=== PATIENT | male | born 1935 | race Caucasian/White ===

== ENCOUNTER → 2016-09-09 | Outpatient (CLI) | payer MEDICARE, OTHER ==
[~2016-09-09] MED LIST: ASP325T PO; ATOR40TA PO; CALC-787 PO; GLIP5TAB13 PO; GLYB5TAB6 PO; HCT25T PO; HYDR-3002 PO; LISI40TA PO; METO100T2 PO; MTF500T PO; MULT-963 PO; POTA10CA43 PO; POTA10TA36 PO; SIMV80TA3 PO
--- OUTSIDE RECORDS SUMMARY | 2016-09-09 11:00 | XMS REPORT | Continuity of Care Document ---
Author Author [facility] Organization [facility] Address Unknown Phone Unavailable Care Team Providers Care Farm Mechanic Name Role Phone GERI PAZ MD PCP Insurance Providers Payer Name Policy Number Subscriber Name Relationship [employer] [id number] Geri Van 18 Self / Same As Patient Enter Insurance Name [id number] Geri Van 18 Self / Same As Patient Advance Directives Directive Response Recorded Date/Time Advance Directives No 03/05/16 11:03am Organ Donor No 03/05/16 11:03am Problems Active Problems Medical Problem Onset Date Status Heat stress syndrome Unknown Acute Medications Current Home Medications Medication Dose Units Route Directions Days/Qty Instructions Start Date Aspirin 325 Mg 325 Mg Oral Daily 09/16/12 Metformin Hcl (Glucophage) 500 Mg 500 Mg Oral Twice A Day With Meals 09/16/12 Hydrochlorothiazide 25 Mg 25 Mg Oral Daily 09/16/12 Metoprolol Tartrate (Lopressor) 100 Mg 50 Mg Oral Daily 09/16/12 Glipizide (Glucotrol) 5 Mg 2.5 Mg Oral Twice A Day 09/16/12 Multivitamin 1 Each 1 Tab Oral Daily 09/16/12 Calcium Citrate/Vitamin D3 1 Each 1 Tab Oral Daily 09/16/12 Hydralazine Hcl 10 Mg 10 Mg Oral Twice A Day 09/16/12 Atorvastatin Calcium 40 Mg 40 Mg Oral Bedtime 09/16/12 Lisinopril 40 Mg 40 Mg Oral Daily 09/16/12 Potassium Chloride 10 Meq 10 Meq Oral Daily 09/17/12 Past Home Medications Medication Directions Ordered Status Glyburide (Micronase) 5 Mg Tablet, 1 Each Oral Twice Daily Before Meals 09/16 Discontinued Potassium Chloride 10 Meq Tab.prt.sr, 20 Meq Oral Daily With Meal 09/16/12 Discontinued Hydralazine Hcl 10 Mg Tablet, 1 Each Oral Twice A Day 09/16/12 Discontinued Lisinopril 40 Mg Tablet, 40 Mg Oral Daily 09/16/12 Discontinued Simvastatin 80 Mg Tablet, 40 Mg Oral Daily 09/16/12 Discontinued Social History Social History Problem Response Recorded Date/Time Alcohol Use Denies Use 03/05/2016 11:03am Recreational Drug Use No 03/05/2016 11:03am Recent Foreign Travel No 09/16/2012 5:15pm Recent Infectious Disease Exposure No 09/16/2012 5:15pm Hospitalization with Isolation Denies 09/17/2012 2:12pm Sexually Transmitted Disease No 03/05/2016 11:03am HIV/AIDS No 03/05/2016 11:03am Recent Hopitalizations No 03/05/2016 11:03am Sexually Transmitted Disease No 03/05/2016 11:03am Hospitalization with Isolation Denies 09/17/2012 2:12pm Hospital Discharge Instructions No hospital discharge instructions. Plan of Care Prescriptions See Medication Section Functional Status No functional status results. Allergies, Adverse Reactions, Alerts No known allergies. Immunizations No immunization records. Vital Signs No known vital signs results. Results No known relevant diagnostic tests, laboratory data and/or discharge summary. Procedures No known history of procedures. Encounters Encounter Location Arrival/Admit Date Discharge/Depart Date Attending Provider Discharged Recurring [facility] 06/04/16 9:24am 10:22am GERI PAZ MD Discharged Recurring [facility] 05/15/16 1:47pm 5:00pm GERI PAZ MD
== END ==
LOC: CARD 10:55
PROVIDERS: ATTEND Internal Medicine
DX: R00.2 Palpitations (principal)
CPT/HCPCS: 93225; 93226

== ENCOUNTER 2018-05-16 13:27 | Emergency (ER) | payer MEDICARE, OTHER ==
[~2018-05-16] VITALS: Ht 165.1 cm; Wt 56.7 kg
--- OUTSIDE RECORDS SUMMARY | 2018-05-16 13:32 | XMS REPORT | Continuity of Care Document ---
Author Author [facility] Organization [facility] Address Unknown Phone Unavailable Allergies Active Description Code Type Severity Reaction Onset Reported/Identified Relationship to Patient Clinical Status Yes No Known Drug Allergies [id number] Drug Allergy Unknown N/A 09/16/2012 Medications There is no data. Problems Date Dx Coded Attending Type Code Diagnosis Diagnosed By 09/17/2012 Ot 250.00 DIAB RENATE WO COMPL, TYPE II OR UNSPEC TY 09/17/2012 Ot 272.4 HYPERLIPIDEMIA NEC/NOS 09/17/2012 Ot 401.9 HYPERTENSION NOS 09/17/2012 Ot 414.01 CORONARY ATHEROSCLEROSIS OF [place] CORON 09/17/2012 Ot 786.50 CHEST PAIN NOS 09/17/2012 Ot V58.67 LONG-TERM ( CURRENT) USE OF INSULIN 09/17/2012 Ot V58.69 OTH MED,LT, CURRENT USE 07/18/2014 Ot 284.1 07/18/2014 Ot 786.2 07/18/2014 GERI PAZ MD Ot 285.9 08/15/2014 KIARA JOHNSON [employer]GE[employer] Ot 784.0 03/05/2016 ROBERTA GREEN MD Ot T67.5XXA HEAT EXHAUSTION, UNSPECIFIED, INITIAL EN 03/06/2016 Ot 284.1 PANCYTOPENIA 03/06/2016 Ot 786.2 COUGH 03/06/2016 GERI PAZ MD Ot 285.9 ANEMIA NOS 03/06/2016 IKARA JOHNSON [employer]GE[employer] Ot 784.0 HEADACHE 03/06/2016 ROBERTA GREEN MD Ot T67.5XXA HEAT EXHAUSTION, UNSPECIFIED, INITIAL EN 03/19/2016 GERI PAZ MD Ot D64.9 ANEMIA, UNSPECIFIED 03/24/2016 GERI PAZ MD Ot D64.9 ANEMIA, UNSPECIFIED 04/10/2016 GERI PAZ MD Ot D64.9 ANEMIA, UNSPECIFIED 05/14/2016 GERI PAZ MD Ot M54.2 CERVICALGIA 05/15/2016 GERI PAZ MD Ot M54.2 CERVICALGIA 06/04/2016 GERI PAZ MD Ot M54.2 CERVICALGIA 09/09/2016 Ot 786.2 COUGH 09/09/2016 GERI PAZ MD Ot 285.9 ANEMIA NOS 09/09/2016 ALEXKIARA APRN Ot 784.0 HEADACHE 09/09/2016 GERI PAZ MD Ot D64.9 ANEMIA, UNSPECIFIED 09/10/2016 GERI PAZ MD Ot R00.2 PALPITATIONS 09/11/2016 GERI PAZ MD, Ot R00.2 PALPITATIONS 10/08/2016 GERI PAZ MD, Ot R00.2 PALPITATIONS Procedures There is no data. Results Test Result Range ANEMIA ANALYZER - 03/18/16 14:52 Blood leukocytes automated count (number/volume) 8.3 10*3/uL 4.3-11.0 Blood erythrocytes automated count (number/volume) 3.94 10*6/uL 4.35-5.85 Venous blood hemoglobin measurement (mass/volume) 11.2 g/dL 13.3-17.7 Blood hematocrit (volume fraction) 34 % 40-54 Automated erythrocyte mean corpuscular volume 86 [foz_us] 80-99 Automated erythrocyte mean corpuscular hemoglobin (mass per erythrocyte) 28 pg 25-34 Automated erythrocyte mean corpuscular hemoglobin concentration measurement ( mass/volume) 33 g/dL 32-36 Automated erythrocyte distribution width ratio 12.9 % 10.0-14.5 Automated blood platelet count (count/volume) 144 10*3/uL 130-400 Automated blood platelet mean volume measurement 12.3 [foz_us] 7.4-10.4 Automated blood neutrophils/100 leukocytes 69 % 42-75 Automated blood lymphocytes/100 leukocytes 21 % 12-44 Blood monocytes/100 leukocytes 12 % NRG Automated blood eosinophils/100 leukocytes 0 % 0-10 Automated blood basophils/100 leukocytes 0 % 0-10 Blood neutrophils automated count (number/volume) 5.7 10*3 1.8-7.8 Blood lymphocytes automated count (number/volume) 1.8 10*3 1.0-4.0 Blood monocytes automated count (number/volume) 0.9 10*3 0.0-1.0 Automated eosinophil count 0.0 10*3/uL 0.0-0.3 Automated blood basophil count (count/volume) 0.0 10*3/uL 0.0-0.1 Manual blood segmented neutrophils/100 leukocytes 66 % NRG Blood band neutrophils/100 leukocytes 0 % NRG Manual blood lymphocytes/100 leukocytes 21 % NRG Manual eosinophils/100 leukocytes in nose 0 % NRG Manual blood basophils/100 leukocytes 1 % NRG Blood poikilocytosis detection by light microscopy SLIGHT NRG Blood reticulocytes count (number/volume) 56 10*9/L 24- 90 Blood reticulocytes/100 erythrocytes 1.43 % 0.50-2.40 Blood allegra cells detection by light microscopy SLIGHT NRG Anemia panel [id number] NRG Serum or plasma folate measurement (mass/volume) - 03/18/16 14:52 Serum or plasma folate measurement (mass/volume) 19.2 ng/mL 1.5-24.0 Serum iron and total iron binding capacity panel - 03/18/16 14:52 Serum or plasma iron measurement (mass/volume) 69 ug/dL 40-180 Total iron binding capacity and transferrin saturation measurement 17 % 15-50 Iron binding capacity [mass/volume] in serum or plasma 418 H 280-380 UIBC (unsaturated iron binding capacity) 349 NRG Cyanocobalamin measurement - 03/18/16 14:52 Vitamin B12 313 pg/mL 200-1000 Immature platelet percentage - 03/18/16 14:52 Immature platelet percentage 11.6 H 0.0-7.2 Encounters ACCT No. Visit Date/Time Discharge Status Pt. Type Provider Facility Loc./Unit Complaint [id number] 09/09/2016 10:55:00 09/09/2016 23:59:59 CLS Outpatient GERI PAZ MD [facility] CARD PALPITATIONS [id number] 06/04/2016 09:24:00 06/04/2016 10:22:00 DIS Outpatient GERI PAZ MD [facility] REHAB CERVICALGIA [id number] 05/15/2016 13:47:00 05/15/2016 17:00:00 DIS Outpatient GERI PAZ MD [facility] REHAB CERVICALGIA [id number] 03/18/2016 14:49:00 03/18/2016 23:59:59 CLS Outpatient GERI PAZ MD [facility] LAB ANEMIA UNSPECIFIED [id number] 03/05/2016 11:04:00 03/05/2016 14:53:00 DIS Emergency PETER HARRY, ROBERTA Cross [facility] ER AMS/OVERHEATED [id number] 07/18/2014 10:05:00 07/18/2014 23:59:59 CLS Outpatient KIARA JOHNSON APRN [facility] RAD CHRONIC HEADACHES [id number] 02/06/2013 14:59:00 02/06/2013 23:59:59 CLS Outpatient GERI PAZ MD [facility] LAB ANEMIA [id number] 09/16/2012 13:05:00 Document Registration [id number] 09/24/2011 13:39:00 Document Registration [id number] 12/26/2010 12:48:00 Document Registration [id number] 07/18/2014 10:07:55 ACT Document Registration
[2018-05-16] MEDS ORDERED: NS IV 1000 ML 1,000 ML IV SCH (13:42)
[2018-05-16] MEDS ORDERED: fentaNYL INJECTION 100 MCG/2 ML AMP IVP ONE (13:45)
--- NOTE | 2018-05-16 13:51 | ED Abdominal Pain ---
General Chief Complaint: Abdominal/GI Problems Stated Complaint: ABD PAIN Nursing Triage Note: PT HAS BEEN EXPERIENCING ABDOMINAL PAIN OVER THE LAST 2-3 DAYS IN THE RLQ WITH BLOATING PRESENT. PT DENIES IRREGULAR STOOLS OR NAUSEA. LAST BM VOICED TODAY. Sepsis Screen: No Definite Risk Source of Information: Patient Exam Limitations: No Limitations History of Present Illness Date Seen by Provider: May 16, 2018 Time Seen by Provider: 13:37 Initial Comments The patient presents to the ER by private conveyance with his spouse and seemed chief complaint that since , 5 days ago he started to have some bloating and discomfort in his stomach. He has no history of trauma. Is Worse to the point that last night he took 3 tablets of Pepto-Bismol 2 with only marginal relief. He had to sleep on the divan because of the pain. He rates his a 5 out of 10 bloating feeling like he's intestines or bloated and the pain starts in his epigastric region and radiates outward. He's had no abdominal surgeries. No nausea or vomiting. No fevers or chills cough shortness of breath. He has a history of high blood pressure and diabetes on oral anti- hyperglycemics. But no coronary disease, pancreatitis, gallbladder etc. He feels like his had to let his pants out and open his belt up to holes since it started. His last bowel movement was this morning, normal formed. Allergies and Home Medications Allergies Coded Allergies: No Known Drug Allergies (Unverified , 09/16/12) Home Medications Aspirin 325 Mg Tab, 325 MG PO DAILY, (Reported) Atorvastatin Calcium 40 Mg Tablet, 40 MG PO HS, (Reported) Calcium Citrate/Vitamin D3 1 Each Tablet, 1 TAB PO DAILY, (Reported) Glipizide 5 Mg Tablet, 2.5 MG PO BID, (Reported) Hydralazine Hcl 10 Mg Tablet, 10 MG PO BID, (Reported) Hydrochlorothiazide 25 Mg Tablet, 25 MG PO DAILY, (Reported) Lisinopril 40 Mg Tablet, 40 MG PO DAILY, (Reported) Metformin Hcl 500 Mg Tablet, 500 MG PO BID WITH MEALS, (Reported) Metoprolol Tartrate 100 Mg Tablet, 50 MG PO DAILY, (Reported) Multivitamin 1 Each Tablet, 1 TAB PO DAILY, (Reported) Potassium Chloride 10 Meq Capsule.sa, 10 MEQ PO DAILY, (Reported) Patient Home Medication List Home Medication List Reviewed: Yes Review of Systems Review of Systems Constitutional: No chills, No diaphoresis, No fever; malaise EENTM: No Blurred Vision, No Double Vision Respiratory: Denies Cough, Denies Shortness of Air Cardiovascular: Denies Chest Pain, Denies Syncope Gastrointestinal: Denies Constipated, Denies Diarrhea, Denies Nausea; Poor Appetite, Poor Fluid Intake; Denies Rectal Bleeding, Denies Vomiting Genitourinary: Denies Discharge, Denies Drainage Musculoskeletal: No back pain, No joint pain Skin: No lumps, No pruritus Psychiatric/Neurological: Denies Headache, Denies Numbness Past Cpldqwj-Tzccsf-Vgwvse Hx Patient Social History Alcohol Use: Denies Use Recreational Drug Use: No Smoking Status: Never a Smoker Recent Foreign Travel: No Contact w/Someone Who Travel: No Recent Infectious Disease Expo: No Recent Hopitalizations: No Immunizations Up To Date Tetanus Booster (TDap): More than 5yrs Date of Pneumonia Vaccine: Aug 16, 2011 Date of Influenza Vaccine: May 16, 2012 Past Medical History Surgeries: Yes (x3 turps) Respiratory: No Cardiac: No Neurological: Yes Reproductive Disorders: No Sexually Transmitted Disease: No HIV/AIDS: No Genitourinary: Yes Benign Prostatic Hyperpl Gastrointestinal: Yes Gastroesophageal Reflux, Chronic Constipation Musculoskeletal: Yes Fractures, Gout Endocrine: Yes Diabetes, Non-Insulin dep Cataract Hearing Impairment: Hard of Hearing Cancer: No Psychosocial: No Integumentary: No Blood Disorders: No Physical Exam Vital Signs Vital Signs - First Documented 05/16/18 13:31 Temp 98.5 Pulse 86 Resp 18 B/P (MAP) 133/68 (89) Pulse Ox 99 O2 Delivery Room Air Capillary Refill : Less Than 3 Seconds Height/Weight/BMI Height: 5'5.00" Weight: 125lbs. oz. 56.471661ey; BMI Method:Stated General Appearance: WD/WN, thin HEENT: PERRL/EOMI, normal ENT inspection, pharynx normal Neck: non-tender, full range of motion, supple, normal inspection Respiratory: chest non-tender, lungs clear, normal breath sounds, no respiratory distress, no accessory muscle use Cardiovascular: normal peripheral pulses, regular rate, rhythm, no edema Gastrointestinal: no organomegaly, abnormal bowel sounds (active bowel sounds) , guarding (moderate epigastric); No rebound; tenderness (moderate epigastric), other (negative for Curtis sign, psoas sign or mesenteric signs.) Rectal: normal exam, deferred Extremities: normal range of motion, normal capillary refill Neurologic/Psychiatric: alert, normal mood/affect, oriented x 3 Skin: normal color, warm/dry Progress/Results/Core Measures Results/Orders Lab Results Laboratory Tests Test 05/16/18 13:54 05/16/18 15:31 05/16/18 15:37 Range/Units White Blood Count 5.4 4.3-11.0 10^3/uL Red Blood Count 3.60 L 4.35-5.85 10^6/uL Hemoglobin 10.0 L 13.3-17.7 G/DL Hematocrit 31 L 40-54 % Mean Corpuscular Volume 85 80-99 FL Mean Corpuscular Hemoglobin 28 25-34 PG Mean Corpuscular Hemoglobin Concent 33 32-36 G/DL Red Cell Distribution Width 15.0 H 10.0-14.5 % Platelet Count 133 130-400 10^3/uL Mean Platelet Volume 11.0 H 7.4-10.4 FL Neutrophils (%) (Auto) 48 42-75 % Lymphocytes (%) (Auto) 33 12-44 % Monocytes (%) (Auto) 19 H 0-12 % Eosinophils (%) (Auto) 0 0-10 % Basophils (%) (Auto) 0 0-10 % Neutrophils # (Auto) 2.6 1.8-7.8 X 10^3 Lymphocytes # (Auto) 1.8 1.0-4.0 X 10^3 Monocytes # (Auto) 1.0 0.0-1.0 X 10^3 Eosinophils # (Auto) 0.0 0.0-0.3 10^3/uL Basophils # (Auto) 0.0 0.0-0.1 10^3/uL Neutrophils % (Manual) 55 % Lymphocytes % (Manual) 26 % Monocytes % (Manual) 19 % Band Neutrophils % Rolando Cells MODERATE Acanthocytes SLIGHT Sodium Level 140 135-145 MMOL/L Potassium Level 4.0 3.6-5.0 MMOL/L Chloride Level 105 98-107 MMOL/L Carbon Dioxide Level 24 21-32 MMOL/L Anion Gap 11 5-14 MMOL/L Blood Urea Nitrogen 26 H 7-18 MG/DL Creatinine 1.29 0.60-1.30 MG/DL Estimat Glomerular Filtration Rate 53 BUN/Creatinine Ratio 20 Glucose Level 42 *L 70-105 MG/DL Calcium Level 9.8 8.5-10.1 MG/DL Corrected Calcium 9.5 8.5-10.1 MG/DL Total Bilirubin 0.5 0.1-1.0 MG/DL Aspartate Amino Transf (AST/SGOT) 17 5-34 U/L Alanine Aminotransferase (ALT/SGPT) 15 0-55 U/L Alkaline Phosphatase 71 40-136 U/L Total Protein 7.2 6.4-8.2 GM/DL Albumin 4.4 3.2-4.5 GM/DL Lipase 24 8-78 U/L Urine Color YELLOW Urine Clarity CLEAR Urine pH 7 5-9 Urine Specific [place] 1.005 L 1.016-1.022 Urine Protein NEGATIVE NEGATIVE Urine Glucose (UA) NEGATIVE NEGATIVE Urine Ketones NEGATIVE NEGATIVE Urine Nitrite NEGATIVE NEGATIVE Urine Bilirubin NEGATIVE NEGATIVE Urine Urobilinogen NORMAL NORMAL MG/DL Urine Leukocyte Esterase NEGATIVE NEGATIVE Urine RBC (Auto) NEGATIVE NEGATIVE Urine RBC NONE /HPF Urine WBC NONE /HPF Urine Squamous Epithelial Cells RARE /HPF Urine Crystals NONE /LPF Urine Bacteria NONE /HPF Urine Casts NONE /LPF Urine Mucus NEGATIVE /LPF Urine Culture Indicated NO Glucometer 86 70-110 MG/DL My Orders Orders - MAI FORREST Ct Abdomen/Pelvis W (05/16/18 13:42) Saline Lock/Iv-Start (05/16/18 13:42) Cbc With Automated Diff (05/16/18 13:42) Comprehensive Metabolic Panel (05/16/18 13:42) Lipase (05/16/18 13:42) Ua Culture If Indicated (05/16/18 13:42) Saline Lock/Iv-Start (05/16/18 13:42) Ns Iv 1000 Ml (Sodium Chloride 0.9%) (05/16/18 13:42) Fentanyl Injection (Sublimaze Injection (05/16/18 13:45) Manual Differential (05/16/18 13:54) Iohexol Injection (Omnipaque 350 Mg/Ml 1 (05/16/18 14:30) Ns (Ivpb) (Sodium Chloride 0.9%) (05/16/18 14:30) D50w (Emergency) Syringe (Dextrose 50% 5 (05/16/18 14:31) Accucheck Stat ONCE (05/16/18 15:17) Medications Given in ED Current Medications Medications Dose Ordered Sig/Chago Route Start Time Stop Time Status Last Admin Dose Admin Dextrose 50 ml STK-MED ONCE .ROUTE 05/16/18 14:31 05/16/18 14:36 DC 05/16/18 14:47 25 ML Fentanyl Citrate 50 mcg ONCE ONCE IVP 05/16/18 13:45 05/16/18 13:46 DC 05/16/18 14:03 50 MCG Iohexol 100 ml ONCE ONCE IV 05/16/18 14:30 05/16/18 14:31 DC 05/16/18 14:30 100 ML Sodium Chloride 250 ml ONCE ONCE IV 05/16/18 14:30 05/16/18 14:31 DC 05/16/18 14:31 80 ML Vital Signs/I&O 05/16/18 13:31 Temp 98.5 Pulse 86 Resp 18 B/P (MAP) 133/68 (89) Pulse Ox 99 O2 Delivery Room Air Blood Pressure Mean: 89 Progress Progress Note : Time: 13:50 Progress Note 50 g of fentanyl, liter of fluids, CT with contrast on the abdomen and pelvis as well as basic labs to include lipase. Diagnostic Imaging Diagonstic Imaging: CT (with contrast) Plain Films/CT/US/NM/MRI: abdomen, pelvis Comments V[facility] [place], [place] NAME: GERI TORRES [facility] REC#: [id number] PT STATUS: REG ER : 1935 PHYSICIAN: MAI FORREST MD ADMIT DATE: 05/16/18/ER Draft Date of Exam:05/16/18 CT ABDOMEN/PELVIS W PROCEDURE: CT abdomen and pelvis with contrast. TECHNIQUE: Multiple contiguous axial images were obtained through the abdomen and pelvis after administration of intravenous contrast. INDICATION: Abdominal pain and bloating for 5 days. COMPARISON: No prior studies are available for comparison. FINDINGS: There is linear scarring or subsegmental atelectasis in the left lower lobe. No discrete liver mass is identified. The gallbladder is unremarkable. No biliary ductal dilatation is seen. The pancreas is atrophic. The spleen is unremarkable. No adrenal mass is identified. The kidneys are unremarkable. The aorta is non-aneurysmal. There is moderate stool throughout the colon. There is diverticulosis of the sigmoid and descending colon but no evidence of acute diverticulitis. Trace free fluid in the pelvis is seen. The moderately distended urinary bladder is unremarkable. There are fat containing inguinal hernias. IMPRESSION: Moderate stool throughout the colon, suggestive of constipation and uncomplicated diverticulosis. No acute feature is detected. Dictated on workstation # [id number] Dict: 05/16/18 1450 Trans: 05/16/18 1502 [id number] Interpreted by: NAZARIO VILLA MD Electronically signed by: Reviewed: Reviewed by Me Consults : Consulting Physician: BENI YOU Consults Notes Set up an appointment with Dirk Melo 05/18/18 0900. Departure Impression Primary Impression: Constipation Qualified Codes: K59.00 - Constipation, unspecified Additional Impressions: Gastroenteritis Hypoglycemia associated with diabetes Disposition: HOME, SELF-CARE Condition: Improved Departure-Patient Inst. Decision time for Depature: 16:18 Referrals: GERI PAZ MD (PCP/Family) Primary Care Physician Patient Instructions: Constipation, Adult (DC) Add. Discharge Instructions: Drink plenty of fluids and pickling solution maker a bottle of MiraLAX. Mix 1 capful in 6 ounces of fluids of your choice. Take this twice a day until you have results. You can also use an enema or suppository daily. Hold your glipizide until you are feeling better. Use Tylenol 1000 mg every 8 hours and or ibuprofen 800 mg every 8 hours as needed for pain. Heating pads and warm baths can be helpful. Follow-up with your primary care provider Flaquito Melo at 9:00 on May 18, 2018, Wednesday. If this time does not work for you you can call and request a different appointment time. All discharge instructions reviewed with patient and/or family. Voiced understanding. Copy Copies To 1: GERI PAZ MD, TITUS J May 16, 2018 13:51
[2018-05-16 14:01] LABS: BASOPHILS % (AUTO) 0 % (0-10); EOSINOPHILS % (AUTO) 0 % (0-10); HEMATOCRIT 31 % (40-54); LYMPHOCYTES # (AUTO) 1.8 X 10^3 (1.0-4.0); LYMPHOCYTES % (AUTO) 33 % (12-44); MEAN CORPUSCULAR HEMOGLOBIN 28 PG (25-34); MEAN CORPUSCULAR HGB CONC 33 G/DL (32-36); MEAN CORPUSCULAR VOLUME 85 FL (80-99); MONOCYTES % (AUTO) 19 % (0-12); NEUTROPHILS # (AUTO) 2.6 X 10^3 (1.8-7.8); NEUTROPHILS % (AUTO) 48 % (42-75); PLATELET COUNT 133 10^3/uL (130-400); WHITE BLOOD COUNT 5.4 10^3/uL (4.3-11.0)
[2018-05-16 14:18] LABS: ALBUMIN 4.4 GM/DL (3.2-4.5); BILIRUBIN,TOTAL 0.5 MG/DL (0.1-1.0); CALCIUM 9.8 MG/DL (8.5-10.1); CREATININE SERUM 1.29 MG/DL (0.60-1.30); TOTAL PROTEIN 7.2 GM/DL (6.4-8.2)
[2018-05-16 14:27] LABS: ACANTHOCYTES SLIGHT; BURR CELLS MODERATE; LYMPHOCYTES % (MANUAL) 26 %; MONOCYTES % (MANUAL) 19 %; NEUTROPHILS % (MANUAL) 55 %
[2018-05-16] MEDS ORDERED: NS 250 ML (IVPB) BAG IV ONE (14:30)
[2018-05-16] MEDS ORDERED: IOHEXOL 350 MG/ML 100 ML (OMNIPAQUE 350) VIAL IV ONE (14:30)
[2018-05-16] MEDS ORDERED: DEXTROSE 50% 50 ML (IMS) SYR ONE (14:31)
--- NOTE | 2018-05-16 15:03 | Diagnostic Imaging Report ---
PROCEDURE: CT abdomen and pelvis with contrast. TECHNIQUE: Multiple contiguous axial images were obtained through the abdomen and pelvis after administration of intravenous contrast. INDICATION: Abdominal pain and bloating for 5 days. COMPARISON: No prior studies are available for comparison. FINDINGS: There is linear scarring or subsegmental atelectasis in the left lower lobe. No discrete liver mass is identified. The gallbladder is unremarkable. No biliary ductal dilatation is seen. The pancreas is atrophic. The spleen is unremarkable. No adrenal mass is identified. The kidneys are unremarkable. The aorta is non-aneurysmal. There is moderate stool throughout the colon. There is diverticulosis of the sigmoid and descending colon but no evidence of acute diverticulitis. Trace free fluid in the pelvis is seen. The moderately distended urinary bladder is unremarkable. There are fat containing inguinal hernias. IMPRESSION: Moderate stool throughout the colon, suggestive of constipation and uncomplicated diverticulosis. No acute feature is detected. Dictated by: Dictated on workstation # [id number]
[2018-05-16 15:41] LABS: BILIRUBIN,URINE NEGATIVE (NEGATIVE); CLARITY,URINE CLEAR; COLOR,URINE YELLOW; GLUCOSE, URINE (UA) NEGATIVE (NEGATIVE); KETONES,URINE NEGATIVE (NEGATIVE); LEUKOCYTE ESTERASE ,URINE NEGATIVE (NEGATIVE); NITRITE,URINE NEGATIVE (NEGATIVE); PH,URINE 7 (5-9); PROTEIN,URINE NEGATIVE (NEGATIVE); UROBILINOGEN,URINE NORMAL (NORMAL)
[2018-05-16 15:49] LABS: SQUAMOUS EPITHELIAL CELL,UR RARE /HPF
[2018-05-16 16:34] VITALS: BP 137/70
== END 2018-05-16 16:38 | disposition home or self-care (01) ==
LOC: EDUNIT# 13:27 → ER 13:28
DX: K59.00 Constipation, unspecified (principal); K52.9 Noninfective gastroenteritis and colitis, unspecified; E11.649 Type 2 diabetes mellitus with hypoglycemia without coma; K21.9 Gastro-esophageal reflux disease without esophagitis; M10.9 Gout, unspecified; Z79.82 Long term (current) use of aspirin; Z79.84 Long term (current) use of oral hypoglycemic drugs; Z87.19 Personal history of other diseases of the digestive system
CPT/HCPCS: 36415; 74177; 80053; 81000; 82962; 83690; 85007; 85027

== ENCOUNTER → 2019-02-24 | Outpatient (CLI) | payer MEDICARE, OTHER ==
[2019-02-24 12:12] LABS: BASOPHILS % (AUTO) 0 % (0-10); EOSINOPHILS % (AUTO) 0 % (0-10); HEMATOCRIT 28 % (40-54); HEMOGLOBIN 8.6 G/DL (13.3-17.7); LYMPHOCYTES # (AUTO) 0.9 X 10^3 (1.0-4.0); LYMPHOCYTES % (AUTO) 33 % (12-44); MEAN CORPUSCULAR HEMOGLOBIN 25 PG (25-34); MEAN CORPUSCULAR HGB CONC 31 G/DL (32-36); MEAN CORPUSCULAR VOLUME 82 FL (80-99); MEAN PLATELET VOLUME 10.6 FL (7.4-10.4); MONOCYTES # (AUTO) 0.5 X 10^3 (0.0-1.0); MONOCYTES % (AUTO) 19 % (0-12); NEUTROPHILS # (AUTO) 1.3 X 10^3 (1.8-7.8); NEUTROPHILS % (AUTO) 48 % (42-75); PLATELET COUNT 134 10^3/uL (130-400); RED CELL DISTRIBUTION WIDTH 17.7 % (10.0-14.5); WHITE BLOOD COUNT 2.7 10^3/uL (4.3-11.0)
[2019-02-24 12:13] LABS: ABSOLUTE RETIC # 34 10e9/L (24-90); RETICULOCYTE % 0.98 % (0.50-2.40)
[2019-02-24 13:16] LABS: BAND NEUTROPHILS 0 %; BASOPHILS % (MANUAL) 2 %; EOSINOPHILS % (MANUAL) 2 %; LYMPHOCYTES % (MANUAL) 28 %; METAMYELOCYTES % 1 %; MONOCYTES % (MANUAL) 8 %; NEUTROPHILS % (MANUAL) 51 %; REACTIVE LYMPHOCYTES 8 %
[2019-02-24 13:17] LABS: HYPOCHROMASIA SLIGHT; PLATELET CLUMPS SLIGHT
[2019-02-24 13:18] LABS: ACANTHOCYTES MODERATE; ANISOCYTOSIS SLIGHT; ELLIPT/OVALOCYTES SLIGHT; POIKILOCYTOSIS MODERATE; TEAR DROP CELLS SLIGHT
== END ==
LOC: LAB 10:11
PROVIDERS: ATTEND Internal Medicine
DX: D61.818 Other pancytopenia (principal)
CPT/HCPCS: 36415; 82728; 85007; 85027; 85045

== ENCOUNTER 2019-04-13 08:51 | Outpatient (RCR) | payer MEDICARE, OTHER ==
[2019-03-27 13:54] LABS: BASOPHILS % (AUTO) 0 % (0-10); EOSINOPHILS % (AUTO) 0 % (0-10); HEMATOCRIT 27 % (40-54); HEMOGLOBIN 8.3 G/DL (13.3-17.7); LYMPHOCYTES # (AUTO) 1.5 X 10^3 (1.0-4.0); LYMPHOCYTES % (AUTO) 41 % (12-44); MEAN CORPUSCULAR HEMOGLOBIN 26 PG (25-34); MEAN CORPUSCULAR HGB CONC 31 G/DL (32-36); MEAN CORPUSCULAR VOLUME 83 FL (80-99); MEAN PLATELET VOLUME 12.1 FL (7.4-10.4); MONOCYTES # (AUTO) 0.6 X 10^3 (0.0-1.0); MONOCYTES % (AUTO) 17 % (0-12); NEUTROPHILS # (AUTO) 1.5 X 10^3 (1.8-7.8); NEUTROPHILS % (AUTO) 41 % (42-75); PLATELET COUNT 103 10^3/uL (130-400); RED CELL DISTRIBUTION WIDTH 17.4 % (10.0-14.5); WHITE BLOOD COUNT 3.6 10^3/uL (4.3-11.0)
[2019-03-27 14:15] LABS: ALBUMIN 4.3 GM/DL (3.2-4.5); BILIRUBIN,TOTAL 0.3 MG/DL (0.1-1.0); CALCIUM 9.8 MG/DL (8.5-10.1); CREATININE SERUM 1.42 MG/DL (0.60-1.30); POTASSIUM 4.8 MMOL/L (3.6-5.0); TOTAL PROTEIN 6.9 GM/DL (6.4-8.2)
[2019-03-29 09:36] LABS: ABSOLUTE RETIC # 29 10e9/L (24-90); BASOPHILS % (AUTO) 0 % (0-10); EOSINOPHILS % (AUTO) 0 % (0-10); HEMATOCRIT 26 % (40-54); LYMPHOCYTES # (AUTO) 0.8 X 10^3 (1.0-4.0); LYMPHOCYTES % (AUTO) 31 % (12-44); MEAN CORPUSCULAR HEMOGLOBIN 26 PG (25-34); MEAN CORPUSCULAR HGB CONC 31 G/DL (32-36); MEAN CORPUSCULAR VOLUME 83 FL (80-99); MEAN PLATELET VOLUME 11.2 FL (7.4-10.4); MONOCYTES # (AUTO) 0.4 X 10^3 (0.0-1.0); MONOCYTES % (AUTO) 17 % (0-12); NEUTROPHILS # (AUTO) 1.3 X 10^3 (1.8-7.8); NEUTROPHILS % (AUTO) 52 % (42-75); PLATELET COUNT 83 10^3/uL (130-400); RED CELL DISTRIBUTION WIDTH 17.4 % (10.0-14.5); RETICULOCYTE % 0.92 % (0.50-2.40); WHITE BLOOD COUNT 2.5 10^3/uL (4.3-11.0)
[2019-03-29 12:42] LABS: BASOPHILS % (MANUAL) 0 %; EOSINOPHILS % (MANUAL) 0 %; HYPOCHROMASIA SLIGHT; LYMPHOCYTES % (MANUAL) 36 %; MONOCYTES % (MANUAL) 9 %; NEUTROPHILS % (MANUAL) 54 %; REACTIVE LYMPHOCYTES 1 %
[2019-03-29 12:43] LABS: ACANTHOCYTES SLIGHT; ANISOCYTOSIS SLIGHT; ELLIPT/OVALOCYTES SLIGHT
[2019-03-29 12:48] LABS: TEAR DROP CELLS SLIGHT
[2019-03-29 12:49] LABS: POIKILOCYTOSIS SLIGHT
[~2019-04-13 08:51] MED LIST changes: +LIDOCAINE 1% 20 ML (XYLOCAINE) VIAL CANCER CTR INJ ONE
== END 2019-04-20 15:34 | disposition home or self-care (01) ==
LOC: ONC 08:51
PROVIDERS: ATTEND Internal Medicine Hematology & Oncology
DX: D61.818 Other pancytopenia (principal)
CPT/HCPCS: 36415; 38222; 80053; 82728; 83540; 83615; 85007; 85025; 85027; 85045; 85652; 86038; 86141; 88184; 88237; 88264; 88305; 88311; 88313; 99213; 99214

== ENCOUNTER 2019-07-18 13:16 | Outpatient (RCR) | payer MEDICARE, OTHER ==
[2019-07-05 10:43] LABS: BASOPHILS % (AUTO) 0 % (0-10); EOSINOPHILS % (AUTO) 0 % (0-10); HEMATOCRIT 30 % (40-54); HEMOGLOBIN 9.6 G/DL (13.3-17.7); LYMPHOCYTES # (AUTO) 0.8 X 10^3 (1.0-4.0); LYMPHOCYTES % (AUTO) 11 % (12-44); MEAN CORPUSCULAR HEMOGLOBIN 26 PG (25-34); MEAN CORPUSCULAR HGB CONC 32 G/DL (32-36); MEAN CORPUSCULAR VOLUME 83 FL (80-99); MEAN PLATELET VOLUME 11.5 FL (7.4-10.4); MONOCYTES # (AUTO) 1.6 X 10^3 (0.0-1.0); MONOCYTES % (AUTO) 22 % (0-12); NEUTROPHILS # (AUTO) 4.9 X 10^3 (1.8-7.8); NEUTROPHILS % (AUTO) 67 % (42-75); PLATELET COUNT 111 10^3/uL (130-400); RED CELL DISTRIBUTION WIDTH 15.7 % (10.0-14.5); WHITE BLOOD COUNT 7.2 10^3/uL (4.3-11.0)
[2019-07-05 11:03] LABS: ALBUMIN 4.4 GM/DL (3.2-4.5); BILIRUBIN,TOTAL 0.5 MG/DL (0.1-1.0); CALCIUM 9.5 MG/DL (8.5-10.1); CREATININE SERUM 1.55 MG/DL (0.60-1.30); POTASSIUM 4.3 MMOL/L (3.6-5.0)
[~2019-07-18 13:16] MED LIST changes: +FERRIC CARBOXYMALTOSE (CANCER) 750 MG in NS (IVPB) CANCER CENTER 250 ML IV SCH; -LIDOCAINE 1% 20 ML (XYLOCAINE) VIAL CANCER CTR INJ ONE
== END 2019-08-18 14:31 | disposition home or self-care (01) ==
LOC: ONC 13:16
PROVIDERS: ATTEND Internal Medicine Hematology & Oncology
DX: D61.818 Other pancytopenia (principal); D50.0 Iron deficiency anemia secondary to blood loss (chronic); I25.10 Atherosclerotic heart disease of native coronary artery without angina pectoris; E11.22 Type 2 diabetes mellitus with diabetic chronic kidney disease; I12.9 Hypertensive chronic kidney disease with stage 1 through stage 4 chronic kidney disease, or unspecified chronic kidney disease; N18.3 Chronic kidney disease, stage 3 (moderate); D63.1 Anemia in chronic kidney disease; E78.5 Hyperlipidemia, unspecified
CPT/HCPCS: 36415; 80053; 82728; 85025; 96365; 99213

== ENCOUNTER → 2019-09-21 | Outpatient (CLI) | payer MEDICARE, OTHER ==
[~2019-09-21] MED LIST changes: -FERRIC CARBOXYMALTOSE (CANCER) 750 MG in NS (IVPB) CANCER CENTER 250 ML IV SCH; +HOLD METFORMIN - RECEIVED CONTRAST 20 ML VIAL IV SCH; +IOHEXOL 350 MG/ML 100 ML (OMNIPAQUE 350) VIAL IV ONE; +NS 100 ML (IVPB) BAG IV ONE
[2019-09-21 10:12] LABS: BUN/CREATININE RATIO 22; GFR ESTIMATED > 60
--- NOTE | 2019-09-21 11:21 | Diagnostic Imaging Report ---
PROCEDURE: CT abdomen and pelvis with contrast. TECHNIQUE: Multiple contiguous axial images were obtained through the abdomen and pelvis after administration of intravenous contrast. Auto Exposure Controls were utilized during the CT exam to meet ALARA standards for radiation dose reduction. INDICATION: Back pain and abdominal pain as well as weight loss. Correlation is made with prior CT from 05/16/2018. FINDINGS: The lung bases are clear. No discrete liver mass is seen. Gallbladder is unremarkable. No biliary ductal dilatation is seen. There is some atrophy to the pancreas. The spleen is unremarkable. No adrenal or renal mass is detected. There is no hydronephrosis. Aorta is nonaneurysmal. No central retroperitoneal or mesenteric lymphadenopathy is detected. The bowel loops are normal caliber. There is no obstruction. There does appear to be some diverticulosis of the descending and sigmoid colon but no definite evidence of acute diverticulitis. There is large amount of stool in the rectum. Bladder is unremarkable. No definite pelvic lymphadenopathy is seen. Prostate unremarkable. The bony structures appear non-acute. There appears to be fat-containing left inguinal hernia. IMPRESSION: 1. Uncomplicated diverticulosis. 2. Moderate stool in the rectum and sigmoid. 3. No evidence of abdominal or pelvic lymphadenopathy or mass. Dictated by: Dictated on workstation # [id number]
== END ==
LOC: RAD 09:36
PROVIDERS: ATTEND Internal Medicine
DX: K57.30 Diverticulosis of large intestine without perforation or abscess without bleeding (principal); E11.9 Type 2 diabetes mellitus without complications; D50.9 Iron deficiency anemia, unspecified; R63.4 Abnormal weight loss; R10.9 Unspecified abdominal pain; Z79.899 Other long term (current) drug therapy
CPT/HCPCS: 36415; 74177; 82565; 83036; 84520

== ENCOUNTER 2019-09-29 14:18 | Emergency (ER) | payer MEDICARE, OTHER ==
[~2019-09-29] VITALS: Ht 175 cm; Wt 65.7 kg
[2019-09-29 14:38] LABS: BASOPHILS % (AUTO) 0 % (0-10); EOSINOPHILS % (AUTO) 0 % (0-10); HEMATOCRIT 40 % (40-54); LYMPHOCYTES # (AUTO) 1.2 X 10^3 (1.0-4.0); LYMPHOCYTES % (AUTO) 23 % (12-44); MEAN CORPUSCULAR HEMOGLOBIN 29 PG (25-34); MEAN CORPUSCULAR HGB CONC 33 G/DL (32-36); MEAN CORPUSCULAR VOLUME 88 FL (80-99); MONOCYTES # (AUTO) 0.8 X 10^3 (0.0-1.0); MONOCYTES % (AUTO) 14 % (0-12); NEUTROPHILS # (AUTO) 3.3 X 10^3 (1.8-7.8); NEUTROPHILS % (AUTO) 63 % (42-75); PLATELET COUNT 129 10^3/uL (130-400); RED CELL DISTRIBUTION WIDTH 14.9 % (10.0-14.5); WHITE BLOOD COUNT 5.3 10^3/uL (4.3-11.0)
--- NOTE | 2019-09-29 14:43 | Diagnostic Imaging Report ---
PROCEDURE: CT head wo r/o stroke. TECHNIQUE: Multiple contiguous axial images were obtained through the brain without the use of intravenous contrast. Auto Exposure Controls were utilized during the CT exam to meet ALARA standards for radiation dose reduction. INDICATION: Altered level of consciousness, difficulty speaking. COMPARISON: 07/18/2014. FINDINGS: There is some prominence of the bifrontal extra-axial CSF spaces and background atrophy stable. Periventricular white matter small vessel disease stable and chronic. 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 There are intracranial atherosclerotic vascular calcifications chronic. No focal or generalized cerebral edema. There are no findings of hemorrhage. No findings of elevation of the intracranial pressures. No mass or mass effect. IMPRESSION: Stable chronic findings as listed. No hemorrhage, edema, or acute-appearing abnormality. Dictated by: Dictated on workstation # [id number]
[2019-09-29 15:00] LABS: ALANINE AMINOTRANSFERASE 10 U/L (0-55); ALBUMIN 4.9 GM/DL (3.2-4.5); ALKALINE PHOSPHATASE 218 U/L (40-136); BILIRUBIN,TOTAL 0.4 MG/DL (0.1-1.0); BUN/CREATININE RATIO 16; CALCIUM 9.9 MG/DL (8.5-10.1); CARBON DIOXIDE 22 MMOL/L (21-32); CHLORIDE 101 MMOL/L (98-107); CREATININE SERUM 1.28 MG/DL (0.60-1.30); GFR ESTIMATED 53; GLUCOSE 156 MG/DL (70-105); POTASSIUM 4.5 MMOL/L (3.6-5.0); SODIUM 136 MMOL/L (135-145); TOTAL PROTEIN 7.7 GM/DL (6.4-8.2)
--- NOTE | 2019-09-29 15:07 | Diagnostic Imaging Report ---
INDICATION: Confusion and right-sided weakness, visual changes. EXAMINATION: Single view of the chest was obtained. FINDINGS: Heart size is stable. There is some perihilar atelectatic changes as well as involving the left lung base. No jason alveolar consolidation. No effusion or pneumothorax. IMPRESSION: There are some perihilar and basilar zones of atelectasis, no other change. Dictated by: Dictated on workstation # [id number]
[2019-09-29 15:21] LABS: FIBRIN DEGRADATION PRODUCTS 1.28 UG/ML (0.00-0.49); INR 0.9 (0.8-1.4); PROTHROMBIN TIME PATIENT 12.5 SEC (12.2-14.7)
[2019-09-29] MEDS ORDERED: NS IV 1000 ML 1,000 ML IV ONE (15:41)
[2019-09-29 15:42] LABS: BILIRUBIN,URINE NEGATIVE (NEGATIVE); CLARITY,URINE CLEAR; COLOR,URINE YELLOW; GLUCOSE, URINE (UA) NEGATIVE (NEGATIVE); KETONES,URINE NEGATIVE (NEGATIVE); LEUKOCYTE ESTERASE ,URINE NEGATIVE (NEGATIVE); NITRITE,URINE NEGATIVE (NEGATIVE); PH,URINE 5.5 (5-9); PROTEIN,URINE NEGATIVE (NEGATIVE)
[2019-09-29 16:00] LABS: AMORPHOUS SEDIMENT,UR FEW AMOR URATES /LPF; BACTERIA,URINE TRACE /HPF
[2019-09-29] MEDS ORDERED: NS 100 ML (IVPB) BAG IV ONE (16:00)
[2019-09-29] MEDS ORDERED: CATHETER FLUSH 10 ML SYR IV PRN (16:00)
[2019-09-29] MEDS ORDERED: HOLD METFORMIN - RECEIVED CONTRAST 20 ML VIAL IV SCH (16:00)
[2019-09-29] MEDS ORDERED: IOHEXOL 350 MG/ML 100 ML (OMNIPAQUE 350) VIAL IV ONE (16:00)
[2019-09-29] MEDS ORDERED: DEXTROSE 50% 50 ML (IMS) SYR IV ONE (16:45)
--- NOTE | 2019-09-29 17:00 | Diagnostic Imaging Report ---
PROCEDURE: CT angiography of the head and CT angiography of the neck with and without contrast. TECHNIQUE: Contiguous noncontrast images were obtained from the skull base through the vertex. After intravenous contrast administration, helical CT angiography of the neck was performed. Source data was reformatted into 3D MIP projections. Delayed post-contrast acquisition was also obtained. Auto Exposure Controls were utilized during the CT exam to meet ALARA standards for radiation dose reduction. INDICATION: Altered level of consciousness with difficulty speaking. COMPARISON: Correlation is made with a CT of the head from earlier in the same day. FINDINGS: There is a three-vessel aortic arch. There is no significant stenosis at the origins of the great vessels arising from the aortic arch. There is moderate atherosclerosis stenosis at the origin of the left vertebral artery. The right appears widely patent. There is no significant atherosclerotic narrowing demonstrated of the common carotid arteries. There is atherosclerotic plaquing of both of the carotid bifurcations, but this results in less than 50% stenosis by NASCET criteria. The cervical internal carotid arteries demonstrate no significant stenosis or caliber change. There are no findings of dissection. Beyond the origins, the vertebral arteries demonstrate no significant stenosis or findings of dissection. Within the intracranial circulation, there is appropriate flow within the intracranial segments of both of the internal carotid arteries. There is mild atherosclerotic disease without significant stenosis. The carotid terminus is within normal limits bilaterally. There is appropriate flow within the M1 segment of both of the middle cerebral arteries. No occluded M2 branch is evident. The anterior cerebral arteries appear patent. Within the posterior circulation, there is mild atherosclerotic disease within the right vertebral artery. Both vertebral arteries are patent. The basilar is unremarkable. The superior cerebellar arteries are patent. The posterior cerebral arteries demonstrate some atherosclerotic changes with a moderate stenosis in the right P2 segment and a moderate stenosis within the superior P3 segment of the left BRAND SPECIALIST. There is no occlusion. There are no findings of intracranial aneurysm formation. The dural venous sinuses appear patent. The soft tissues of the neck are unremarkable. The lung apices appear clear. There are advanced multilevel degenerative endplate changes and facet arthropathy within the cervical spine with multiple apparent disc herniations. There appears to be high-grade canal stenosis at C4-C5 and multiple levels of high-grade foraminal stenosis. There are severe arthritic changes of the shoulders. IMPRESSION: 1. No CT angiographic evidence of intracranial large vessel occlusion. 2. Intracranial atherosclerotic disease, most significantly affecting the posterior cerebral arteries. 3. CTA neck demonstrates no high-grade carotid artery stenosis or dissection. There is moderate narrowing at the origin of the left vertebral artery. There is no vertebral dissection. 4. No evidence of aneurysm formation. 5. No pathologic intracranial enhancement. 6. Advanced background degenerative features throughout the cervical spine and within both shoulders. Dictated by: Dictated on workstation # [id number]
[2019-09-29] MEDS ORDERED: KETOROLAC 30 MG/ML VIAL IVP ONE (17:45)
--- NOTE | 2019-09-29 18:16 | ED Neurological Problem ---
General Chief Complaint: Neurological Problems Stated Complaint: CONFUSION;R SIDED WEAKNESS;VISION CHANGE Nursing Triage Note: LAST KNOWN WELL TIME, 1030, STATES BS THIS MORNING WAS 112, STATES PATIENT WAS UNABLE TO GET OFF COUCH, GARBLED SPEECH. AGGITATION. 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 His reports last known well time was izzy ewhere around 10:30. They ate breakfast and he sat down in his chair. After a while he became confused with garbled speech and then was unable to get up out of his chair. Patient has a history of hypoglycemic episodes. However, he generally takes care of checking his blood sugars and managing them himself. His family did not know how to check his blood sugar. His suspected hypoglycemia versus stroke. She gave him 2 large glasses of orange juice prior to leaving the house. He was showing significant improvement already by the time of arrival to the emergency room. Because of the symptoms of aphasia and garbled speech, stroke activation was paged during his assessment. His NIH stroke score was 3 due to disorientation and expressive aphasia. He was noted to be hypertensive. Fingerstick blood sugar on arrival was 157. Allergies and Home Medications Allergies Coded Allergies: No Known Drug Allergies (Unverified , 09/16/12) Home Medications Aspirin 325 Mg Tab, 325 MG PO DAILY, (Reported) Atorvastatin Calcium 40 Mg Tablet, 40 MG PO HS, (Reported) Calcium Citrate/Vitamin D3 1 Each Tablet, 1 TAB PO DAILY, (Reported) Glipizide 5 Mg Tablet, 2.5 MG PO BID, (Reported) Hydralazine Hcl 10 Mg Tablet, 10 MG PO BID, (Reported) Hydrochlorothiazide 25 Mg Tablet, 25 MG PO DAILY, (Reported) Lisinopril 40 Mg Tablet, 40 MG PO DAILY, (Reported) Metformin Hcl 500 Mg Tablet, 500 MG PO BID WITH MEALS, (Reported) Metoprolol Tartrate 100 Mg Tablet, 50 MG PO DAILY, (Reported) Multivitamin 1 Each Tablet, 1 TAB PO DAILY, (Reported) Potassium Chloride 10 Meq Capsule.sa, 10 MEQ PO DAILY, (Reported) Patient Home Medication List Home Medication List Reviewed: Yes Review of Systems Review of Systems Constitutional: no symptoms reported Eyes: No Symptoms Reported Ears, Nose, Mouth, Throat: no symptoms reported Respiratory: no symptoms reported Cardiovascular: see HPI Gastrointestinal: no symptoms reported Genitourinary: no symptoms reported Musculoskeletal: no symptoms reported Skin: no symptoms reported Psychiatric/Neurological: See HPI Endocrine: See HPI Hematologic/Lymphatic: No Symptoms Reported Past Cqbpccj-Eipxci-Parocu Hx Past Med/Social Hx: Reviewed Nursing Past Med/Soc Hx Patient Social History Recent Foreign Travel: No Contact w/Someone Who Travel: No Recent Infectious Disease Expo: No Recent Hopitalizations: No Immunizations Up To Date Tetanus Booster (TDap): More than 5yrs Date of Pneumonia Vaccine: Aug 16, 2011 Date of Influenza Vaccine: May 16, 2012 Past Medical History Surgeries: Yes (x3 turps) Respiratory: No Cardiac: Yes Hypertension Neurological: Yes Reproductive Disorders: No Sexually Transmitted Disease: No HIV/AIDS: No Genitourinary: Yes Benign Prostatic Hyperpl Gastrointestinal: Yes Gastroesophageal Reflux, Chronic Constipation Musculoskeletal: Yes Fractures, Gout Endocrine: Yes Diabetes, Non-Insulin dep HEENT: Yes Cataract Hearing Impairment: Hard of Hearing Cancer: No Psychosocial: No Integumentary: No Blood Disorders: No Physical Exam Vital Signs Vital Signs - First Documented 09/29/19 14:23 Pulse 62 Resp 20 B/P (MAP) 203/89 (127) Pulse Ox 96 O2 Delivery Room Air Capillary Refill : Less Than 3 Seconds Height, Weight, BMI Height: 5'5.00" Weight: 125lbs. oz. [id number]; 21.00 BMI Method:Stated General Appearance: WD/WN, no apparent distress HEENT: PERRL/EOMI, normal ENT inspection Neck: normal inspection Respiratory: lungs clear, normal breath sounds, no respiratory distress, no accessory muscle use Cardiovascular: regular rate, rhythm, no edema, no murmur Gastrointestinal: non tender, soft Extremities: normal inspection, no pedal edema Neurologic/Psychiatric: no motor/sensory deficits, alert, normal mood/affect, other (disoriented, mild expressive aphasia) Crainal Nerves: normal hearing, PERRL, abnormal speech Coordination/Gait: normal finger to nose Motor/Sensory: no motor deficit, no sensory deficit Skin: normal color, warm/dry Stroke NIH Stroke Scale Assessment Level of Consciousness: 0=Alert (0), Level of Consciousness-Questions: 2=Answer neither question (2), LOC Commands: 0=Performs both tasks (0), Visual Alexander: 0=No visual loss (0), Facial Movement (Facial Paresis): 0=Normal symmetrical mnt (0), Motor Function-Arms Right: 0=No drift (0), Motor Function-Arms Left: 0=No drift (0), Motor Function-Legs Right: 0=No drift (0), Motor Function-Legs Left: 0=No drift (0), Limb Ataxia: 0=Absent (0), Sensory: 0=Normal:no loss (0), Best Language: 1=Mild to moderat aphasia (1), Dysarthria: 0=Normal (0), Extinction & Inattention: 0=No abnormality (0), Total: 3 Progress/Results/Core Measures Results/Orders Lab Results Laboratory Tests Test 09/29/19 14:27 09/29/19 14:29 09/29/19 15:35 09/29/19 16:33 Range/Units Glucometer 156 H 83 70-110 MG/DL White Blood Count 5.3 4.3-11.0 10^3/uL Red Blood Count 4.51 4.35-5.85 10^6/uL Hemoglobin 13.0 L 13.3-17.7 G/DL Hematocrit 40 40-54 % Mean Corpuscular Volume 88 80-99 FL Mean Corpuscular Hemoglobin 29 25-34 PG Mean Corpuscular Hemoglobin Concent 33 32-36 G/DL Red Cell Distribution Width 14.9 H 10.0-14.5 % Platelet Count 129 L 130-400 10^3/uL Mean Platelet Volume 11.0 H 7.4-10.4 FL Neutrophils (%) (Auto) 63 42-75 % Lymphocytes (%) (Auto) 23 12-44 % Monocytes (%) (Auto) 14 H 0-12 % Eosinophils (%) (Auto) 0 0-10 % Basophils (%) (Auto) 0 0-10 % Neutrophils # (Auto) 3.3 1.8-7.8 X 10^3 Lymphocytes # (Auto) 1.2 1.0-4.0 X 10^3 Monocytes # (Auto) 0.8 0.0-1.0 X 10^3 Eosinophils # (Auto) 0.0 0.0-0.3 10^3/uL Basophils # (Auto) 0.0 0.0-0.1 10^3/uL Prothrombin Time 12.5 12.2-14.7 SEC INR Comment 0.9 0.8-1.4 Activated Partial Thromboplast Time 28 24-35 SEC D-Dimer 1.28 H 0.00-0.49 UG/ML Sodium Level 136 135-145 MMOL/L Potassium Level 4.5 3.6-5.0 MMOL/L Chloride Level 101 98-107 MMOL/L Carbon Dioxide Level 22 21-32 MMOL/L Anion Gap 13 5-14 MMOL/L Blood Urea Nitrogen 20 H 7-18 MG/DL Creatinine 1.28 0.60-1.30 MG/DL Estimat Glomerular Filtration Rate 53 BUN/Creatinine Ratio 16 Glucose Level 156 H 70-105 MG/DL Calcium Level 9.9 8.5-10.1 MG/DL Corrected Calcium 8.5-10.1 MG/DL Total Bilirubin 0.4 0.1-1.0 MG/DL Aspartate Amino Transf (AST/SGOT) 17 5-34 U/L Alanine Aminotransferase (ALT/SGPT) 10 0-55 U/L Alkaline Phosphatase 218 H 40-136 U/L Troponin I < 0.028 <0.028 NG/ML Total Protein 7.7 6.4-8.2 GM/DL Albumin 4.9 H 3.2-4.5 GM/DL Urine Color YELLOW Urine Clarity CLEAR Urine pH 5.5 5-9 Urine Specific [place] 1.020 1.016-1.022 Urine Protein NEGATIVE NEGATIVE Urine Glucose (UA) NEGATIVE NEGATIVE Urine Ketones NEGATIVE NEGATIVE Urine Nitrite NEGATIVE NEGATIVE Urine Bilirubin NEGATIVE NEGATIVE Urine Urobilinogen 0.2 < = 1.0 MG/DL Urine Leukocyte Esterase NEGATIVE NEGATIVE Urine RBC (Auto) TRACE-I NEGATIVE Urine RBC 2-5 H /HPF Urine WBC NONE /HPF Urine Crystals PRESENT H /LPF Urine Amorphous Sediment FEW SARAH URATES H /LPF Urine Bacteria TRACE /HPF Urine Casts NONE /LPF Urine Mucus SMALL H /LPF Urine Culture Indicated NO Test 09/29/19 17:37 Range/Units Glucometer 128 H 70-110 MG/DL My Orders Orders - STEFANI JARAMILLO MD Cbc With Automated Diff (09/29/19 14:28) Protime With Inr (09/29/19:) Partial Thromboplastin Time (09/29/19 14:) Comprehensive Metabolic Panel (09/29/19:) Fibrin Degradation Products (09/29/19:) Troponin I (09/29/19:) Ua Culture If Indicated (09/29/19 14:) Chest 1 View, Ap/Pa Only (09/29/19:) Ekg Tracing (09/29/19:) Nothing By Mouth (09/29/19 Dinner) Accucheck Stat ONCE (09/29/19:) Ed Iv/Invasive Line Start (09/29/19:) Ed Iv/Invasive Line Start (09/29/19:) Vital Signs Stroke Patient Q15M (09/29/19:) Ct Head Wo-R/O Stroke (09/29/19:) O2 (09/29/19:) Intake & Output 06,14,22 (09/29/19:) Monitor-Rhythm Ecg Trace Only (09/29/19:) Dysphagia Screening Tool (09/29/19:) Post Thrombolytic Adminstratio (09/29/19:) Lipid Panel (09/30/19 06:00) Ct Angio Head/Neck (09/29/19 15:41) Ns Iv 1000 Ml (Sodium Chloride 0.9%) (09/29/19 15:41) Iohexol Injection (Omnipaque 350 Mg/Ml 1 (09/29/19 16:00) Received Contrast (Hold Metformin- Contr (09/29/19 16:00) Sodium Chloride Flush (Catheter Flush Sy (09/29/19 16:00) Ns (Ivpb) (Sodium Chloride 0.9% Ivpb Bag (09/29/19 16:00) Accucheck Stat ONCE (09/29/19 16:18) D50w (Emergency) Syringe (Dextrose 50% 5 (09/29/19 16:45) Accucheck Stat ONCE (09/29/19 17:18) Ketorolac Injection (Toradol Injection) (09/29/19 17:45) General/Regular (09/29/19 Dinner) Accucheck Stat ONCE (09/29/19 17:41) Medications Given in ED Current Medications Medications Dose Ordered Sig/Chago Route Start Time Stop Time Status Last Admin Dose Admin Dextrose 25 ml ONCE ONCE IV 09/29/19 16:45 09/29/19 16:46 DC 09/29/19 16:44 25 ML Iohexol 100 ml ONCE ONCE IV 09/29/19 16:00 09/29/19 16:01 DC 09/29/19 16:35 75 ML Ketorolac Tromethamine 15 mg ONCE ONCE IVP 09/29/19 17:45 09/29/19 17:46 DC 09/29/19 18:00 15 MG Sodium Chloride 10 ml NEEDED PRN IV 09/29/19 16:00 09/29/19 16:35 10 ML Sodium Chloride 100 ml ONCE ONCE IV 09/29/19 16:00 09/29/19 16:01 DC 09/29/19 16:35 80 ML Sodium Chloride 1,000 ml @ 0 mls/hr Q0M ONCE IV 09/29/19 15:41 09/29/19 15:42 DC 09/29/19 16:44 0 MLS/HR Vital Signs/I&O 09/29/19 09/29/19 14:23 14:23 Pulse 62 Resp 20 B/P (MAP) 203/89 (127) Pulse Ox 96 96 O2 Delivery Room Air Room Air Blood Pressure Mean: 127 FSBG Bedside Testing Finger Stick Blood Glucose: 128 Blood Glucose Action Taken: rn notified Progress Progress Note : Progress Note Stroke activation was paged during initial assessment. Initial NIH stroke score was 3. CT of the head was negative. Patient's blood sugar dropped to 86 and a 25 g dose of D50 was administered. Patient's symptoms gradually improved. I discussed the case with Dr. Chaves, stroke neurologist at [facility]. We agree that he is not a good TPA candidate due to a low NIH score, improving symptoms, a long duration since last known well time, and questionable etiology of symptoms. After review of labs, CT angiogram was obtained. There were no significant abnormalities noted. Patient continued to improve and repeat NIH score was zero. He was able to get up out of bed and ambulate around the room freely. Mentation was brisk. He passed the dysphagia screen and was given crackers to eat. Toradol was given for his headache and his headache resolved. I suspect patient's symptoms were primarily due to hypoglycemia that corrected with the orange juice he received prior to arrival. I discussed managing blood sugars and changing medication dosing since he has had multiple hypoglycemic events. He did not feel comfortable reducing his medication doses any further since his glipizide dose was cut in half about a week ago. Instead, he prefers to consume more sugars and carbs this weekend until he can follow-up with his doctor. Initial ECG Impression Date: Sep 29, 2019 Initial ECG Impression Time: 14:46 Initial ECG Rate: 64 Initial ECG Rhythm: Normal Sinus Initial ECG Intervals: Normal Initial ECG Impression: Normal Comment Normal sinus rhythm with no ST elevation or depression. No abnormal intervals or axis deviation. Diagnostic Imaging Diagonstic Imaging: CT Plain Films/CT/US/NM/MRI: head Comments CT head viewed by me and report reviewed. See report below: NAME: GERI TORRES [facility] REC#: [id number] PT STATUS: REG ER : 1935 PHYSICIAN: STEFANI JARAMILLO MD ADMIT DATE: 09/29/19/ER Signed Date of Exam:09/29/19 CT HEAD WO-R/O STROKE PROCEDURE: CT head wo r/o stroke. TECHNIQUE: Multiple contiguous axial images were obtained through the brain without the use of intravenous contrast. Auto Exposure Controls were utilized during the CT exam to meet ALARA standards for radiation dose reduction. INDICATION: Altered level of consciousness, difficulty speaking. COMPARISON: 07/18/2014. FINDINGS: There is some prominence of the bifrontal extra-axial CSF spaces and background atrophy stable. Periventricular white matter small vessel disease stable and chronic. 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 There are intracranial atherosclerotic vascular calcifications chronic. No focal or generalized cerebral edema. There are no findings of hemorrhage. No findings of elevation of the intracranial pressures. No mass or mass effect. IMPRESSION: Stable chronic findings as listed. No hemorrhage, edema, or acute-appearing abnormality. Dictated by: Dictated on workstation # [id number] Dict: 09/29/19 1439 Trans: 09/29/19 1802 [id number] Interpreted by: DANIELLE LUNDBERG Electronically signed by: DANIELLE LUNDBERG 09/29/191801 Diagonstic Imaging: Xray Plain Films/CT/US/NM/MRI: chest Comments NAME: GERI TORRES [facility] REC#: [id number] PT STATUS: REG ER : 1935 PHYSICIAN: STEFANI JARAMILLO MD ADMIT DATE: 09/29/19/ER Signed Date of Exam:09/29/19 CHEST 1 VIEW, AP/PA ONLY INDICATION: Confusion and right-sided weakness, visual changes. EXAMINATION: Single view of the chest was obtained. FINDINGS: Heart size is stable. There is some perihilar atelectatic changes as well as involving the left lung base. No jason alveolar consolidation. No effusion or pneumothorax. IMPRESSION: There are some perihilar and basilar zones of atelectasis, no other change. Dictated by: Dictated on workstation # [id number] Dict: 09/29/19 1451 Trans: 09/29/191801 [facility] [id number] Interpreted by: DANIELLE LUNDBERG Electronically signed by: DANIELLE LUNDBERG 09/29/191801 Diagonstic Imaging: CT Plain Films/CT/US/NM/MRI: other (angiogram head and neck) Comments NAME: GERI TORRES [facility] REC#: [id number] PT STATUS: REG ER : 1935 PHYSICIAN: STEFANI JARAMILLO MD ADMIT DATE: 09/29/19/ER Signed Date of Exam:09/29/19 CT ANGIO HEAD/NECK PROCEDURE: CT angiography of the head and CT angiography of the neck with and without contrast. TECHNIQUE: Contiguous noncontrast images were obtained from the skull base through the vertex. After intravenous contrast administration, helical CT angiography of the neck was performed. Source data was reformatted into 3D MIP projections. Delayed post-contrast acquisition was also obtained. Auto Exposure Controls were utilized during the CT exam to meet ALARA standards for radiation dose reduction. INDICATION: Altered level of consciousness with difficulty speaking. COMPARISON: Correlation is made with a CT of the head from earlier in the same day. FINDINGS: There is a three-vessel aortic arch. There is no significant stenosis at the origins of the great vessels arising from the aortic arch. There is moderate atherosclerosis stenosis at the origin of the left vertebral artery. The right appears widely patent. There is no significant atherosclerotic narrowing demonstrated of the common carotid arteries. There is atherosclerotic plaquing of both of the carotid bifurcations, but this results in less than 50% stenosis by NASCET criteria. The cervical internal carotid arteries demonstrate no significant stenosis or caliber change. There are no findings of dissection. Beyond the origins, the vertebral arteries demonstrate no significant stenosis or findings of dissection. Within the intracranial circulation, there is appropriate flow within the intracranial segments of both of the internal carotid arteries. There is mild atherosclerotic disease without significant stenosis. The carotid terminus is within normal limits bilaterally. There is appropriate flow within the M1 segment of both of the middle cerebral arteries. No occluded M2 branch is evident. The anterior cerebral arteries appear patent. Within the posterior circulation, there is mild atherosclerotic disease within the right vertebral artery. Both vertebral arteries are patent. The basilar is unremarkable. The superior cerebellar arteries are patent. 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 There is no occlusion. There are no findings of intracranial aneurysm formation. The dural venous sinuses appear patent. The soft tissues of the neck are unremarkable. The lung apices appear clear. There are advanced multilevel degenerative endplate changes and facet arthropathy within the cervical spine with multiple apparent disc herniations. There appears to be high-grade canal stenosis at C4-C5 and multiple levels of high-grade foraminal stenosis. There are severe arthritic changes of the shoulders. IMPRESSION: 1. No CT angiographic evidence of intracranial large vessel occlusion. 2. Intracranial atherosclerotic disease, most significantly affecting the posterior cerebral arteries. 3. CTA neck demonstrates no high-grade carotid artery stenosis or dissection. There is moderate narrowing at the origin of the left vertebral artery. There is no vertebral dissection. 4. No evidence of aneurysm formation. 5. No pathologic intracranial enhancement. 6. Advanced background degenerative features throughout the cervical spine and within both shoulders. Dictated by: Dictated on workstation # [id number] Dict: 09/29/195 Trans: 09/29/191699 [id number] Interpreted by: REMY BA MD Electronically signed by: REMY BA MD 02/14/20 1700 Departure Impression Primary Impression: Confusion Additional Impressions: Hypoglycemia Acute headache Qualified Codes: R51 - Headache Hypertension Qualified Codes: I10 - Essential (primary) hypertension Disposition: 01 HOME, SELF-CARE Condition: Improved Departure-Patient Inst. Decision time for Depature: 18:14 Referrals: GERI PAZ MD (PCP/Family) Primary Care Physician Patient Instructions: HYPOGLYCEMIA Add. Discharge Instructions: Drink plenty of water. Take your medications as previously prescribed including this evening's medications. Follow-up with your primary care provider as soon as possible. Through the weekend check your blood sugars fasting in the morning and then 2 hours after each meal. You may contact Dr. Jaramillo in the emergency room over the weekend if you're having difficulties managing her blood sugars. Eat 3 meals a day through the weekend and keep snacks with sugar and carbohydrates handy in the event you have a low blood sugar. Return to the emergency room if you have worsening symptoms. All discharge instructions reviewed with patient and/or family. Voiced understanding. Copy Copies To 1: GERI PAZ MD, JOSHUA T MD Sep 29, 2019 18:16
[2019-09-29 18:20] VITALS: BP 179/63
== END 2019-09-29 18:30 | disposition home or self-care (01) ==
LOC: EDUNIT# 14:18 → ER 14:20
DX: E11.649 Type 2 diabetes mellitus with hypoglycemia without coma (principal); R41.0 Disorientation, unspecified; R51 Headache; I10 Essential (primary) hypertension; Z79.82 Long term (current) use of aspirin; Z79.84 Long term (current) use of oral hypoglycemic drugs
CPT/HCPCS: 36415; 70450; 70496; 70498; 71045; 80053; 81000; 82962; 84484; 85025; 85379; 85610; 85730; 93005; 93041; 96361; 96374; 96375

== ENCOUNTER → 2019-09-29 | Outpatient (CLI) | payer MEDICARE, OTHER ==
[~2019-09-29] MED LIST changes: -HOLD METFORMIN - RECEIVED CONTRAST 20 ML VIAL IV SCH; -IOHEXOL 350 MG/ML 100 ML (OMNIPAQUE 350) VIAL IV ONE; -NS 100 ML (IVPB) BAG IV ONE
== END | disposition home or self-care (01) ==
LOC: PREOP 05:38
PROVIDERS: ATTEND Surgery
DX: Z01.818 Encounter for other preprocedural examination (principal)

== ENCOUNTER 2019-10-12 06:17 | Outpatient (CLI) | payer MEDICARE ==
[~2019-10-12] VITALS: Ht 165.1 cm; Wt 54.1 kg
[2019-10-12] MEDS ORDERED: LISI40TA PO (15:52)
[2019-10-12] MEDS ORDERED: HYDR-3922 PO (15:52)
[2019-10-12] MEDS ORDERED: METF-398 PO (15:52)
[2019-10-12] MEDS ORDERED: AMLO5TAB9 PO (15:52)
[2019-10-12] MEDS ORDERED: ASPI-999 PO (15:52)
[2019-10-12] MEDS ORDERED: NF-GLIP2.5 PO (15:52)
[2019-10-12] MEDS ORDERED: GABA-486 PO (15:52)
[2019-10-12] MEDS ORDERED: TRAM50TA3 PO (15:52)
[2019-10-12] MEDS ORDERED: OMEP20CA18 PO (15:52)
[2019-10-12] MEDS ORDERED: POTA10CA43 PO (15:52)
[2019-10-12] MEDS ORDERED: ATOR40TA70 PO (15:52)
[2019-10-12] MEDS ORDERED: METO50TA15 PO (15:52)
== END 2019-10-12 15:55 | disposition home or self-care (01) ==
LOC: PREOP 06:17
PROVIDERS: ATTEND Surgery
DX: Z01.818 Encounter for other preprocedural examination (principal)

== ENCOUNTER 2019-10-31 13:19 | Outpatient (RCR) | payer MEDICARE, OTHER ==
[2019-08-22 12:05] LABS: ABSOLUTE RETIC # 29 10e9/L (24-90); BASOPHILS % (AUTO) 0 % (0-10); EOSINOPHILS % (AUTO) 0 % (0-10); HEMATOCRIT 37 % (40-54); LYMPHOCYTES # (AUTO) 0.7 X 10^3 (1.0-4.0); LYMPHOCYTES % (AUTO) 25 % (12-44); MEAN CORPUSCULAR HEMOGLOBIN 28 PG (25-34); MEAN CORPUSCULAR HGB CONC 32 G/DL (32-36); MEAN CORPUSCULAR VOLUME 87 FL (80-99); MEAN PLATELET VOLUME 11.4 FL (7.4-10.4); MONOCYTES # (AUTO) 0.5 X 10^3 (0.0-1.0); MONOCYTES % (AUTO) 20 % (0-12); NEUTROPHILS # (AUTO) 1.4 X 10^3 (1.8-7.8); NEUTROPHILS % (AUTO) 54 % (42-75); PLATELET COUNT 105 10^3/uL (130-400); RED CELL DISTRIBUTION WIDTH 15.8 % (10.0-14.5); RETICULOCYTE % 0.67 % (0.50-2.40); WHITE BLOOD COUNT 2.6 10^3/uL (4.3-11.0)
[2019-08-22 12:28] LABS: ALBUMIN 4.4 GM/DL (3.2-4.5); BILIRUBIN,TOTAL 0.4 MG/DL (0.1-1.0); CALCIUM 8.8 MG/DL (8.5-10.1); CREATININE SERUM 1.23 MG/DL (0.60-1.30); POTASSIUM 4.2 MMOL/L (3.6-5.0); TOTAL PROTEIN 6.9 GM/DL (6.4-8.2)
[2019-10-24 11:09] LABS: BASOPHILS % (AUTO) 0 % (0-10); EOSINOPHILS % (AUTO) 0 % (0-10); HEMATOCRIT 36 % (40-54); HEMOGLOBIN 11.4 G/DL (13.3-17.7); LYMPHOCYTES # (AUTO) 0.6 X 10^3 (1.0-4.0); LYMPHOCYTES % (AUTO) 18 % (12-44); MEAN CORPUSCULAR HEMOGLOBIN 29 PG (25-34); MEAN CORPUSCULAR HGB CONC 32 G/DL (32-36); MEAN CORPUSCULAR VOLUME 89 FL (80-99); MEAN PLATELET VOLUME 10.8 FL (7.4-10.4); MONOCYTES # (AUTO) 0.7 X 10^3 (0.0-1.0); MONOCYTES % (AUTO) 19 % (0-12); NEUTROPHILS # (AUTO) 2.2 X 10^3 (1.8-7.8); NEUTROPHILS % (AUTO) 63 % (42-75); PLATELET COUNT 140 10^3/uL (130-400); RED CELL DISTRIBUTION WIDTH 13.3 % (10.0-14.5); WHITE BLOOD COUNT 3.5 10^3/uL (4.3-11.0)
[2019-10-24 11:28] LABS: ALBUMIN 4.3 GM/DL (3.2-4.5); BILIRUBIN,TOTAL 0.5 MG/DL (0.1-1.0); CALCIUM 8.9 MG/DL (8.5-10.1); CREATININE SERUM 1.38 MG/DL (0.60-1.30); POTASSIUM 4.4 MMOL/L (3.6-5.0); TOTAL PROTEIN 6.8 GM/DL (6.4-8.2)
[~2019-10-31 13:19] MED LIST changes: +AMLO5TAB9 PO; +ASPI-999 PO; +ATOR40TA70 PO; +GABA-486 PO; +HYDR-3922 PO; +METF-398 PO; +METO50TA15 PO; +NF-GLIP2.5 PO; +OMEP20CA18 PO; +PANT40TA2 PO; +TRAM50TA3 PO
== END 2019-11-20 | disposition home or self-care (01) ==
LOC: ONC 13:19
PROVIDERS: ATTEND Internal Medicine Hematology & Oncology
DX: D61.818 Other pancytopenia (principal); D50.0 Iron deficiency anemia secondary to blood loss (chronic); I25.10 Atherosclerotic heart disease of native coronary artery without angina pectoris; E11.22 Type 2 diabetes mellitus with diabetic chronic kidney disease; I12.9 Hypertensive chronic kidney disease with stage 1 through stage 4 chronic kidney disease, or unspecified chronic kidney disease; N18.3 Chronic kidney disease, stage 3 (moderate); D63.1 Anemia in chronic kidney disease; E78.5 Hyperlipidemia, unspecified
CPT/HCPCS: 36415; 80053; 82728; 83090; 83921; 85025; 85045; 99213

== ENCOUNTER → 2019-12-12 | Outpatient (CLI) | payer MEDICARE, OTHER ==
[2019-12-12 13:47] LABS: MEAN PLATELET VOLUME 10.9 FL (7.4-10.4); RED CELL DISTRIBUTION WIDTH 13.7 % (10.0-14.5); WHITE BLOOD COUNT 6.3 10^3/uL (4.3-11.0)
[2019-12-12 14:10] LABS: ALANINE AMINOTRANSFERASE 7 U/L (0-55); ALBUMIN 4.1 GM/DL (3.2-4.5); ALKALINE PHOSPHATASE 88 U/L (40-136); BUN/CREATININE RATIO 31; CALCIUM 9.1 MG/DL (8.5-10.1); CARBON DIOXIDE 25 MMOL/L (21-32); CHLORIDE 98 MMOL/L (98-107); CREATININE SERUM 1.07 MG/DL (0.60-1.30); GFR ESTIMATED > 60; GLUCOSE 111 MG/DL (70-105); LIPASE 6 U/L (8-78); POTASSIUM 4.8 MMOL/L (3.6-5.0); SODIUM 133 MMOL/L (135-145); TOTAL PROTEIN 6.3 GM/DL (6.4-8.2)
[2019-12-12 14:59] LABS: BILIRUBIN,TOTAL 0.7 MG/DL (0.1-1.0)
== END ==
LOC: LAB 13:32
PROVIDERS: ATTEND Internal Medicine
DX: E11.9 Type 2 diabetes mellitus without complications (principal); I10 Essential (primary) hypertension; E78.2 Mixed hyperlipidemia; R10.9 Unspecified abdominal pain; Z79.899 Other long term (current) drug therapy
CPT/HCPCS: 36415; 80053; 83690; 85027

== ENCOUNTER → 2019-12-29 | Outpatient (CLI) | payer MEDICARE, OTHER ==
--- NOTE | 2019-12-29 10:41 | Diagnostic Imaging Report ---
CLINICAL INDICATION: Patient with upper abdominal pain. EXAM: Right upper quadrant ultrasound. COMPARISON: CT scan of the abdomen and pelvis performed with contrast dated 09/21/2019. FINDINGS: There is overlying bowel gas which obscures portions of the upper abdomen including the left lobe of liver, common bile duct, pancreas and proximal abdominal aorta. The pancreas is obscured and cannot be evaluated. Visualized portions of the mid and distal abdominal aorta is non-aneurysmal and unremarkable. The left lobe of liver is obscured and not well visualized. The visualized portions of the liver is unremarkable with normal echogenicity and echotexture. Liver surface is smooth. The liver measures 14 cm. There is no liver mass. There is no intrahepatic ductal dilation. Common bile duct is not visualized and cannot be evaluated. The gallbladder is mildly fluid-filled with no stones or sludge seen. There is no pericholecystic fluid or gallbladder wall thickening. There is no abdominal ascites. The right kidney shows no mass or hydronephrosis. Right kidney measures 8.0 cm in craniocaudal dimension. IMPRESSION: 1: Limited exam due to overlying bowel gas with the pancreas, proximal abdominal aorta, common bile duct, and left lobe of liver obscured. 2: Otherwise, this exam is unremarkable as visualized. Dictated by: Dictated on workstation # [id number]
== END ==
LOC: RAD 08:16
PROVIDERS: ATTEND Physician Assistant
DX: R10.11 Right upper quadrant pain (principal)
CPT/HCPCS: 76705

== ENCOUNTER → 2020-01-03 | Outpatient (CLI) | payer MEDICARE ==
--- NOTE | 2020-01-03 21:12 | Diagnostic Imaging Report ---
INDICATION: Abdominal pain Nuclear hepatobiliary study performed in a routine fashion with IV injection of 5.42 mCi of technetium 99m Choletec. There is prompt uptake of the tracer by the liver. Tracer is visualized in the biliary tree within 15 minutes. Tracer is seen in the gallbladder within 15 minutes. Tracer is seen in the small bowel within 30 minutes. Patient was then given Ensure orally. Subsequent images were obtained. The gallbladder ejection fraction was 99.7%. IMPRESSION: Normal nuclear hepatobiliary study with normal gallbladder ejection fraction. Dictated by: Dictated on workstation # [id number]
== END ==
LOC: CARD 12:22
PROVIDERS: ATTEND Physician Assistant
DX: R10.10 Upper abdominal pain, unspecified (principal); R11.2 Nausea with vomiting, unspecified
CPT/HCPCS: 78227

== ENCOUNTER → 2020-01-16 | Outpatient (CLI) | payer MEDICARE ==
[~2020-01-16] MED LIST changes: +CATHETER FLUSH 10 ML SYR IV PRN; +HOLD METFORMIN - RECEIVED CONTRAST 20 ML VIAL IV SCH; +IOHEXOL 350 MG/ML 100 ML (OMNIPAQUE 350) VIAL IV ONE; +NS 100 ML (IVPB) BAG IV ONE
[2020-01-16 13:57] LABS: CREATININE SERUM 0.93 MG/DL (0.60-1.30); GFR ESTIMATED > 60
[2020-01-16 13:58] LABS: BUN/CREATININE RATIO 20
--- NOTE | 2020-01-16 15:42 | Diagnostic Imaging Report ---
PROCEDURE: CT angiography of the abdomen with and without contrast. TECHNIQUE: Multiple contiguous axial images were obtained through the abdomen and pelvis after administration of intravenous contrast. 3D MIP reconstructions were made. Auto Exposure Controls were utilized during the CT exam to meet ALARA standards for radiation dose reduction. INDICATION: Abdominal aortic aneurysm. COMPARISON: 09/21/2019. FINDINGS: The abdominal aorta is patent and nonaneurysmal. The celiac, superior mesenteric, and inferior mesenteric arteries as well as those vessels primary branches were all widely patent. The bilateral renal arteries were widely patent. The aortic bifurcation is patent. The common iliacs, major internal iliacs, and the visualized portions of the bilateral external iliacs are widely patent. There is no evidence for bowel obstruction. The liver, spleen, adrenals, and pancreas are all unremarkable. The appendix is visualized and unremarkable. No diverticulitis. There is a mildly elevated colonic fecal load. There are equivocal findings for areas of both small and large bowel mucosal hyperemia raising the question of nonspecific enterocolitis. No jason obstruction. No perforation. IMPRESSION: 1. No significant arterial pathology. 2. Mildly elevated fecal load without impaction or obstruction with areas of small and large bowel mucosal hyperenhancement and equivocal wall thickening. Mild enterocolitis could not be excluded. Dictated by: Dictated on workstation # [id number]
== END ==
LOC: RAD 13:25
PROVIDERS: ATTEND Internal Medicine
DX: I71.4 Abdominal aortic aneurysm, without rupture (principal); R63.4 Abnormal weight loss
CPT/HCPCS: 36415; 74175; 82565; 84520

== ENCOUNTER → 2020-01-30 | Outpatient (CLI) | payer MEDICARE, OTHER ==
[~2020-01-30] MED LIST changes: -CATHETER FLUSH 10 ML SYR IV PRN; -HOLD METFORMIN - RECEIVED CONTRAST 20 ML VIAL IV SCH; -IOHEXOL 350 MG/ML 100 ML (OMNIPAQUE 350) VIAL IV ONE; -NS 100 ML (IVPB) BAG IV ONE
[2020-01-30 13:12] LABS: BASOPHILS % (AUTO) 0 % (0-10); EOSINOPHILS % (AUTO) 0 % (0-10); HEMATOCRIT 34 % (40-54); HEMOGLOBIN 11.2 G/DL (13.3-17.7); LYMPHOCYTES % (AUTO) 23 % (12-44); MEAN CORPUSCULAR HEMOGLOBIN 29 PG (25-34); MEAN CORPUSCULAR HGB CONC 33 G/DL (32-36); MEAN CORPUSCULAR VOLUME 90 FL (80-99); MEAN PLATELET VOLUME 12.1 FL (7.4-10.4); MONOCYTES # (AUTO) 0.7 X 10^3 (0.0-1.0); MONOCYTES % (AUTO) 17 % (0-12); NEUTROPHILS # (AUTO) 2.7 X 10^3 (1.8-7.8); NEUTROPHILS % (AUTO) 61 % (42-75); PLATELET COUNT 124 10^3/uL (130-400); WHITE BLOOD COUNT 4.4 10^3/uL (4.3-11.0)
[2020-01-30 13:36] LABS: ALANINE AMINOTRANSFERASE 12 U/L (0-55); ALBUMIN 4.3 GM/DL (3.2-4.5); ALKALINE PHOSPHATASE 131 U/L (40-136); BILIRUBIN,TOTAL 0.6 MG/DL (0.1-1.0); BUN/CREATININE RATIO 25; CALCIUM 9.7 MG/DL (8.5-10.1); CARBON DIOXIDE 24 MMOL/L (21-32); CHLORIDE 103 MMOL/L (98-107); CREATININE SERUM 1.02 MG/DL (0.60-1.30); GFR ESTIMATED > 60; GLUCOSE 120 MG/DL (70-105); POTASSIUM 4.5 MMOL/L (3.6-5.0); SODIUM 136 MMOL/L (135-145); TOTAL PROTEIN 6.8 GM/DL (6.4-8.2)
== END ==
LOC: EDSTATUS 11-21 09:40 → ONC 12:53
PROVIDERS: ATTEND Internal Medicine Hematology & Oncology
DX: D50.0 Iron deficiency anemia secondary to blood loss (chronic) (principal); D61.818 Other pancytopenia
CPT/HCPCS: 80053; 82728; 85025; G0463; 99213

== ENCOUNTER 2020-05-13 15:07 | Emergency (ER) | payer MEDICARE, OTHER ==
[~2020-05-13] VITALS: Ht 165 cm; Wt 45.3 kg
--- NOTE | 2020-05-13 15:18 | ED General ---
General Stated Complaint: CONFUSION;WEAKNESS Source of Information: EMS Exam Limitations: Physical Impairments History of Present Illness Date Seen by Provider: May 13, 2020 Time Seen by Provider: 15:18 Initial Comments 85-year-old male brought in by EMS. EMS reports he was sent in for "confusion" and some generalized weakness. Patient has been more "angry" since he awoke around 8:30 this morning. EMS was called this morning for "possible strokelike symptoms" however unsure what this was. At that time family refuse transport. Patient does not have any reported focal weakness or deficits. There is no reports of fever or acute illness. Once again very limited history of present illness Allergies and Home Medications Allergies Coded Allergies: No Known Drug Allergies (Unverified , 09/16/12) Home Medications Amlodipine Besylate 5 Mg Tablet, 5 MG PO DAILY, (Reported) Aspirin 81 Mg Tab.chew, 81 MG PO DAILY, (Reported) Atorvastatin Calcium 40 Mg Tablet, 80 MG PO HS, (Reported) Gabapentin 100 Mg Capsule, 100 MG PO HS, (Reported) Glipizide 2.5 Mg Tab, 2.5 MG PO BID, (Reported) Hydralazine HCl 10 Mg Tablet, 10 MG PO BID, (Reported) Lisinopril 40 Mg Tablet, 40 MG PO DAILY, (Reported) Metformin HCl 850 Mg Tablet, 850 MG PO BID, (Reported) Metoprolol Tartrate 50 Mg Tablet, 50 MG PO DAILY, (Reported) Omeprazole 20 Mg Capsule.dr, 20 MG PO DAILY, (Reported) Pantoprazole Sodium 40 Mg Tablet.dr, 40 MG PO DAILY Prescribed by: ROBERT BANEGAS on 10/18/191036 Potassium Chloride 10 Meq Capsule.er, 10 MEQ PO DAILY, (Reported) Tramadol HCl 50 Mg Tablet, 50 MG PO HS, (Reported) Patient Home Medication List Home Medication List Reviewed: Yes Review of Systems Review of Systems Constitutional: see HPI EENTM: no symptoms reported Respiratory: no symptoms reported Cardiovascular: no symptoms reported Gastrointestinal: no symptoms reported Genitourinary: no symptoms reported Musculoskeletal: no symptoms reported Psychiatric/Neurological: See HPI Review of systems very limited. Past Qixjbte-Eigwnx-Jpxkwa Hx Past Med/Social Hx: Reviewed Nursing Past Med/Soc Hx Patient Social History Recent Foreign Travel: No Contact w/Someone Who Travel: No Recent Hopitalizations: No Immunizations Up To Date Tetanus Booster (TDap): More than 5yrs Date of Pneumonia Vaccine: Aug 16, 2011 Date of Influenza Vaccine: May 16, 2019 Past Medical History Surgeries: Yes (x3 turps) Respiratory: No Cardiac: Yes Hypertension Neurological: Yes Reproductive Disorders: No Sexually Transmitted Disease: No HIV/AIDS: No Genitourinary: Yes Benign Prostatic Hyperpl Gastrointestinal: Yes Gastroesophageal Reflux, Chronic Constipation Musculoskeletal: Yes Fractures, Gout Endocrine: Yes Diabetes, Non-Insulin dep HEENT: Yes Cataract Hearing Impairment: Hard of Hearing Cancer: No Psychosocial: No Integumentary: No Blood Disorders: No Physical Exam Vital Signs Vital Signs - First Documented 05/13/20 15:25 Temp 36.8 Pulse 79 Resp 18 B/P (MAP) 129/60 (83) Pulse Ox 95 Capillary Refill : Height, Weight, BMI Height: 5'5.00" Weight: 125lbs. oz. 56.481813mv; 19.84 BMI Method:Stated General Appearance: Cachetic, Other (frail, patient alert but does not this is a respond at following commands. I am unsure what his baseline is.) HEENT: PERRL/EOMI Neck: Non Tender, Supple Respiratory: Chest Non Tender, Lungs Clear Gastrointestinal: Non Tender, Soft Neurologic/Psychiatric: Alert, Other (no acute deficits noted with cranial nerves. Patient will answer high in the that there is nothing wrong however very limited as her response to questions and following commands.) Progress/Results/Core Measures Suspected Sepsis SIRS Temperature: Pulse: Respiratory Rate: Laboratory Tests 05/13/20 15:20: White Blood Count 10.1 Blood Pressure / Mean: Laboratory Tests 05/13/20 15:20: Creatinine 1.01, Platelet Count 132, Total Bilirubin 0.7 Results/Orders Lab Results Laboratory Tests Test 05/13/20 15:20 Range/Units White Blood Count 10.1 4.3-11.0 10^3/uL Red Blood Count 4.43 4.35-5.85 10^6/uL Hemoglobin 12.9 L 13.3-17.7 G/DL Hematocrit 40 40-54 % Mean Corpuscular Volume 90 80-99 FL Mean Corpuscular Hemoglobin 29 25-34 PG Mean Corpuscular Hemoglobin Concent 32 32-36 G/DL Red Cell Distribution Width 13.2 10.0-14.5 % Platelet Count 132 130-400 10^3/uL Mean Platelet Volume 11.6 H 7.4-10.4 FL Neutrophils (%) (Auto) 72 42-75 % Lymphocytes (%) (Auto) 10 L 12-44 % Monocytes (%) (Auto) 18 H 0-12 % Eosinophils (%) (Auto) 0 0-10 % Basophils (%) (Auto) 0 0-10 % Neutrophils # (Auto) 7.2 1.8-7.8 X 10^3 Lymphocytes # (Auto) 1.0 1.0-4.0 X 10^3 Monocytes # (Auto) 1.8 H 0.0-1.0 X 10^3 Eosinophils # (Auto) 0.0 0.0-0.3 10^3/uL Basophils # (Auto) 0.0 0.0-0.1 10^3/uL Urine Color YELLOW Urine Clarity CLEAR Urine pH 7.5 5-9 Urine Specific [place] 1.020 1.016-1.022 Urine Protein 1+ H NEGATIVE Urine Glucose (UA) TRACE H NEGATIVE Urine Ketones NEGATIVE NEGATIVE Urine Nitrite NEGATIVE NEGATIVE Urine Bilirubin NEGATIVE NEGATIVE Urine Urobilinogen 0.2 < = 1.0 MG/DL Urine Leukocyte Esterase NEGATIVE NEGATIVE Urine RBC (Auto) 2+ H NEGATIVE Urine RBC 10-25 H /HPF Urine WBC NONE /HPF Urine Squamous Epithelial Cells NONE /HPF Urine Crystals NONE /LPF Urine Bacteria NEGATIVE /HPF Urine Casts NONE /LPF Urine Mucus NEGATIVE /LPF Urine Culture Indicated NO Sodium Level 138 135-145 MMOL/L Potassium Level 4.7 3.6-5.0 MMOL/L Chloride Level 99 98-107 MMOL/L Carbon Dioxide Level 26 21-32 MMOL/L Anion Gap 13 5-14 MMOL/L Blood Urea Nitrogen 21 H 7-18 MG/DL Creatinine 1.01 0.60-1.30 MG/DL Estimat Glomerular Filtration Rate > 60 BUN/Creatinine Ratio 21 Glucose Level 188 H 70-105 MG/DL Calcium Level 10.0 8.5-10.1 MG/DL Corrected Calcium 8.5-10.1 MG/DL Total Bilirubin 0.7 0.1-1.0 MG/DL Aspartate Amino Transf (AST/SGOT) 19 5-34 U/L Alanine Aminotransferase (ALT/SGPT) 18 0-55 U/L Alkaline Phosphatase 86 40-136 U/L Total Protein 7.5 6.4-8.2 GM/DL Albumin 4.7 H 3.2-4.5 GM/DL My Orders Orders - ERMA GONSALES DO Ct Head Wo-R/O Stroke (05/13/20 15:18) Chest 1 View, Ap/Pa Only (05/13/20 15:18) Cbc With Automated Diff (05/13/20 15:18) Comprehensive Metabolic Panel (05/13/20 15:18) Ua Culture If Indicated (05/13/20 15:18) Lorazepam Injection (Ativan Injection) (05/13/20 16:00) Lorazepam Injection (Ativan Injection) (05/13/20 15:47) Medications Given in ED Current Medications Medications Dose Ordered Sig/Chago Route Start Time Stop Time Status Last Admin Dose Admin Lorazepam 2 mg ONCE ONCE IVP 05/13/20 16:00 05/13/20 16:01 DC 05/13/20 16:09 2 MG Vital Signs/I&O 05/13/20 15:25 Temp 36.8 Pulse 79 Resp 18 B/P (MAP) 129/60 (83) Pulse Ox 95 Capillary Refill : Progress Note : Time: 16:37 Progress Note Patient with no acute findings on lab, physical exam or CT scan. 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 I do suspect this is mainly behavioral probably worsening with age and dementia. Patient should follow-up with his primary care provider for further treatment options. Patient is stable will be discharged home. Diagnostic Imaging Diagonstic Imaging: Xray, CT Plain Films/CT/US/NM/MRI: chest, head Comments [facility], [place] NAME: GERI TORRES [facility] REC#: [id number] PT STATUS: REG ER : 1935 PHYSICIAN: ERMA GONSALES DO ADMIT DATE: 05/13/20/ER Draft Date of Exam:05/13/20 CT HEAD WO-R/O STROKE EXAMINATION: CT head without contrast. TECHNIQUE: Multiple contiguous axial images were obtained through the brain without the use of intravenous contrast. All CT scans use one or more of the following dose optimizing techniques: automated exposure control, MA and/or KvP adjustment based on a patient size and exam type, or iterative reconstruction. HISTORY: Confusion. Weakness. Altered mental status. Stroke alert. COMPARISON: CTA head and neck on 09/29/2019. FINDINGS: No large acute territorial ischemia, mass, or hemorrhage. Old infarct is noted in the left thalamus. No midline shift or mass effect. Decreased attenuation is seen in the periventricular and subcortical white matter. The ventricles and cortical sulci are prominent. The basilar cisterns are patent and unremarkable. Bilateral lens implants are noted. Paranasal sinuses are normal. Mastoid air cells are clear. No soft tissue abnormality is seen. No osseous lesions or fractures are seen. IMPRESSION: 1. No large acute territorial ischemia, mass, or hemorrhage. 2. 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 3. Chronic microvascular disease with generalized parenchymal volume loss. [facility] [place] [place] NAME: GERI TORRES [facility] REC#: [id number] PT STATUS: REG ER : 1935 PHYSICIAN: ERMA GONSALES DO ADMIT DATE: 05/13/20/ER Draft Date of Exam:05/13/20 CHEST 1 VIEW, AP/PA ONLY INDICATION: Stroke protocol, confusion and weakness. EXAMINATION: Frontal chest obtained at 04:13 p.m. and compared to 09/29/2019. FINDINGS: Heart and mediastinal silhouette are normal in appearance. The lungs appear clear. There is no pneumothorax or pleural fluid. There is advanced degenerative change of both shoulders incidentally. IMPRESSION: No acute process in the chest. Departure Impression Primary Impression: Behavior disturbance Disposition: 01 HOME, SELF-CARE Condition: Stable Departure-Patient Inst. Referrals: GERI PAZ MD (PCP/Family) Primary Care Physician Patient Instructions: Tips for Caregivers of People With Alzheimer Disease, Delirium (Confusion) (DC), Dementia (DC) Add. Discharge Instructions: Follow-up with your primary care in 2-3 days for further outpatient management and continuation of care ERMA GONSALES DO May 13, 2020 15:18
[2020-05-13 15:34] LABS: BILIRUBIN,URINE NEGATIVE (NEGATIVE); CLARITY,URINE CLEAR; COLOR,URINE YELLOW; GLUCOSE, URINE (UA) TRACE (NEGATIVE); KETONES,URINE NEGATIVE (NEGATIVE); LEUKOCYTE ESTERASE ,URINE NEGATIVE (NEGATIVE); NITRITE,URINE NEGATIVE (NEGATIVE); PH,URINE 7.5 (5-9); PROTEIN,URINE 1+ (NEGATIVE)
[2020-05-13 15:44] LABS: BASOPHILS % (AUTO) 0 % (0-10); EOSINOPHILS % (AUTO) 0 % (0-10); HEMATOCRIT 40 % (40-54); HEMOGLOBIN 12.9 G/DL (13.3-17.7); LYMPHOCYTES % (AUTO) 10 % (12-44); MEAN CORPUSCULAR HEMOGLOBIN 29 PG (25-34); MEAN CORPUSCULAR HGB CONC 32 G/DL (32-36); MEAN CORPUSCULAR VOLUME 90 FL (80-99); MEAN PLATELET VOLUME 11.6 FL (7.4-10.4); MONOCYTES # (AUTO) 1.8 X 10^3 (0.0-1.0); MONOCYTES % (AUTO) 18 % (0-12); NEUTROPHILS # (AUTO) 7.2 X 10^3 (1.8-7.8); NEUTROPHILS % (AUTO) 72 % (42-75); PLATELET COUNT 132 10^3/uL (130-400); WHITE BLOOD COUNT 10.1 10^3/uL (4.3-11.0)
[2020-05-13 15:45] LABS: BACTERIA,URINE NEGATIVE /HPF
[2020-05-13 15:46] LABS: ALBUMIN 4.7 GM/DL (3.2-4.5); CHLORIDE 99 MMOL/L (98-107); POTASSIUM 4.7 MMOL/L (3.6-5.0); SODIUM 138 MMOL/L (135-145)
[2020-05-13] MEDS ORDERED: LORazepam INJ 2 MG/ML (ATIVAN) VIAL ONE (15:47)
[2020-05-13 15:48] LABS: GLUCOSE 188 MG/DL (70-105); TOTAL PROTEIN 7.5 GM/DL (6.4-8.2)
[2020-05-13 15:49] LABS: CARBON DIOXIDE 26 MMOL/L (21-32)
[2020-05-13 15:50] LABS: BILIRUBIN,TOTAL 0.7 MG/DL (0.1-1.0)
[2020-05-13 15:52] LABS: ALKALINE PHOSPHATASE 86 U/L (40-136); CREATININE SERUM 1.01 MG/DL (0.60-1.30); GFR ESTIMATED > 60
[2020-05-13 15:53] LABS: BUN/CREATININE RATIO 21
[2020-05-13 15:55] LABS: ALANINE AMINOTRANSFERASE 18 U/L (0-55)
[2020-05-13] MEDS ORDERED: LORazepam INJ 2 MG/ML (ATIVAN) VIAL IVP ONE (16:00)
--- NOTE | 2020-05-13 16:23 | Diagnostic Imaging Report ---
INDICATION: Stroke protocol, confusion and weakness. EXAMINATION: Frontal chest obtained at 04:13 p.m. and compared to 09/29/2019. FINDINGS: Heart and mediastinal silhouette are normal in appearance. The lungs appear clear. There is no pneumothorax or pleural fluid. There is advanced degenerative change of both shoulders incidentally. IMPRESSION: No acute process in the chest. Dictated by: Dictated on workstation # [id number]
--- NOTE | 2020-05-13 16:26 | Diagnostic Imaging Report ---
EXAMINATION: CT head without contrast. TECHNIQUE: Multiple contiguous axial images were obtained through the brain without the use of intravenous contrast. All CT scans use one or more of the following dose optimizing techniques: automated exposure control, MA and/or KvP adjustment based on a patient size and exam type, or iterative reconstruction. HISTORY: Confusion. Weakness. Altered mental status. Stroke alert. COMPARISON: CTA head and neck on 09/29/2019. FINDINGS: No large acute territorial ischemia, mass, or hemorrhage. Old infarct is noted in the left thalamus. No midline shift or mass effect. Decreased attenuation is seen in the periventricular and subcortical white matter. The ventricles and cortical sulci are prominent. The basilar cisterns are patent and unremarkable. Bilateral lens implants are noted. Paranasal sinuses are normal. Mastoid air cells are clear. No soft tissue abnormality is seen. No osseous lesions or fractures are seen. IMPRESSION: 1. No large acute territorial ischemia, mass, or hemorrhage. 2. 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 3. Chronic microvascular disease with generalized parenchymal volume loss. Dictated by: Dictated on workstation # [id number]
[2020-05-13 16:52] VITALS: BP 188/94
== END 2020-05-13 16:52 | disposition home or self-care (01) ==
LOC: EDUNIT# 15:07 → ER 15:08
DX: F91.9 Conduct disorder, unspecified (principal); K21.9 Gastro-esophageal reflux disease without esophagitis; I10 Essential (primary) hypertension; E11.9 Type 2 diabetes mellitus without complications; Z79.84 Long term (current) use of oral hypoglycemic drugs; Z79.82 Long term (current) use of aspirin
CPT/HCPCS: 36415; 70450; 71045; 80053; 81000; 85025

== ENCOUNTER 2020-05-14 15:07 | Inpatient (IN) | payer MEDICARE, OTHER ==
[~2020-05-14] VITALS: Ht 172.7 cm; Wt 47.3 kg
[2020-05-14] MEDS ORDERED: NALOXONE 2 MG/2 ML (NARCAN) SYR ONE (15:08)
--- NOTE | 2020-05-14 15:12 | ED General ---
General Stated Complaint: WEAKNESS History of Present Illness Date Seen by Provider: May 14, 2020 Time Seen by Provider: 15:12 Initial Comments 85-year-old male brought in by family. Patient is brought in because he is not wanting to wake up. Patient was seen yesterday by me due to being combative. Patient had a CT, labs yesterday. Patient CT showed old traumatic and old infarcts but no acute findings. Patient was given 2 mg Ativan due to being very combative at CT. Family was instructed to patient discharge that he would pr obably sleep and be fatigued during the afternoon. Family reports that he slept throughout the afternoon however this morning he is not wanting to be awaken or arouse. Patient will respond to pain all now allow you to open his eyes however he will not awaken and visit with us. No reports of fever or any other systemic complaints. Allergies and Home Medications Allergies Coded Allergies: No Known Drug Allergies (Unverified , 09/16/12) Home Medications Amlodipine Besylate 5 Mg Tablet, 5 MG PO DAILY, (Reported) Aspirin 81 Mg Tab.chew, 81 MG PO DAILY, (Reported) Atorvastatin Calcium 40 Mg Tablet, 80 MG PO HS, (Reported) Gabapentin 100 Mg Capsule, 100 MG PO HS, (Reported) Glipizide 2.5 Mg Tab, 2.5 MG PO BID, (Reported) Hydralazine HCl 10 Mg Tablet, 10 MG PO BID, (Reported) Lisinopril 40 Mg Tablet, 40 MG PO DAILY, (Reported) Metformin HCl 850 Mg Tablet, 850 MG PO BID, (Reported) Metoprolol Tartrate 50 Mg Tablet, 50 MG PO DAILY, (Reported) Omeprazole 20 Mg Capsule.dr, 20 MG PO DAILY, (Reported) Pantoprazole Sodium 40 Mg Tablet.dr, 40 MG PO DAILY Prescribed by: ROBERT BANEGAS on 10/18/19 1037 Potassium Chloride 10 Meq Capsule.er, 10 MEQ PO DAILY, (Reported) Tramadol HCl 50 Mg Tablet, 50 MG PO HS, (Reported) Patient Home Medication List Home Medication List Reviewed: Yes Review of Systems Review of Systems Constitutional: see HPI, weakness Cardiovascular: no symptoms reported Gastrointestinal: no symptoms reported Genitourinary: no symptoms reported Musculoskeletal: no symptoms reported Psychiatric/Neurological: See HPI Past Qtkmdfm-Ejkjad-Bwgkkq Hx Past Med/Social Hx: Reviewed Nursing Past Med/Soc Hx Patient Social History Recent Foreign Travel: No Contact w/Someone Who Travel: No Recent Hopitalizations: No Immunizations Up To Date Tetanus Booster (TDap): More than 5yrs Date of Pneumonia Vaccine: Aug 16, 2011 Date of Influenza Vaccine: May 16, 2019 Past Medical History Surgeries: Yes (x3 turps) Respiratory: No Cardiac: Yes Hypertension Neurological: Yes Reproductive Disorders: No Sexually Transmitted Disease: No HIV/AIDS: No Genitourinary: Yes Benign Prostatic Hyperpl Gastrointestinal: Yes Gastroesophageal Reflux, Chronic Constipation Musculoskeletal: Yes Fractures, Gout Endocrine: Yes Diabetes, Non-Insulin dep HEENT: Yes Cataract Hearing Impairment: Hard of Hearing Cancer: No Psychosocial: No Integumentary: No Blood Disorders: No Physical Exam Vital Signs Vital Signs - First Documented 05/14/20 05/15/20 15:07 04:39 Temp 38.0 Pulse 69 Resp 20 B/P (MAP) 153/68 (96) Pulse Ox 96 O2 Delivery Room Air O2 Flow Rate 3.50 Capillary Refill : Height, Weight, BMI Height: 5'5.00" Weight: 125lbs. oz. 56.215101ny; 16.00 BMI Method:Stated General Appearance: Cachetic, Other (patient responds to pain and moves spontaneously. However he does not want awaken, patient is snorus) Respiratory: Lungs Clear, Normal Breath Sounds Cardiovascular: Regular Rate, Rhythm Gastrointestinal: Non Tender, Soft Extremity: Normal Capillary Refill, Normal Range of Motion Neurologic/Psychiatric: Other (no acute cranial nerve deficiency or weakness appreciated) Focused Exam Lactate Level 05/14/20 16:30: Lactic Acid Level 1.37 Lactic Acid Level Progress/Results/Core Measures Suspected Sepsis SIRS Temperature: Pulse: Respiratory Rate: Laboratory Tests 05/14/20 15:20: White Blood Count 11.9H Blood Pressure / Mean: 05/14/20 16:30: Lactic Acid Level 1.37 Laboratory Tests 05/14/20 15:20: Creatinine 1.01, Platelet Count 104L, Total Bilirubin 1.1H Results/Orders Lab Results Laboratory Tests Test 05/14/20 15:15 05/14/20 15:20 05/14/20 16:30 Range/Units Glucometer 178 H 70-110 MG/DL White Blood Count 11.9 H 4.3-11.0 10^3/uL Red Blood Count 3.66 L 4.30-5.52 10^6/uL Hemoglobin 11.0 L 13.3-17.7 g/dL Hematocrit 32 L 40-54 % Mean Corpuscular Volume 88 80-99 fL Mean Corpuscular Hemoglobin 30 25-34 pg Mean Corpuscular Hemoglobin Concent 34 32-36 g/dL Red Cell Distribution Width 12.7 10.0-14.5 % Platelet Count 104 L 130-400 10^3/uL Mean Platelet Volume 12.3 H 9.0-12.2 fL Immature Granulocyte % (Auto) 1 % Neutrophils (%) (Auto) 69 42-75 % Lymphocytes (%) (Auto) 9 L 12-44 % Monocytes (%) (Auto) 21 H 0-12 % Eosinophils (%) (Auto) 0 0-10 % Basophils (%) (Auto) 0 0-10 % Neutrophils # (Auto) 8.2 H 1.8-7.8 10^3/uL Lymphocytes # (Auto) 1.1 1.0-4.0 10^3/uL Monocytes # (Auto) 2.4 H 0.0-1.0 10^3/uL Eosinophils # (Auto) 0.0 0.0-0.3 10^3/uL Basophils # (Auto) 0.0 0.0-0.1 10^3/uL Immature Granulocyte # (Auto) 0.2 H 0.0-0.1 10^3/uL Neutrophils % (Manual) 72 % Lymphocytes % (Manual) 12 % Monocytes % (Manual) 16 % Eosinophils % (Manual) 0 % Basophils % (Manual) 0 % Band Neutrophils 0 % Blood Morphology Comment NORMAL Urine Color YELLOW Urine Clarity SL CLOUDY Urine pH 7.0 5-9 Urine Specific [place] 1.015 L 1.016-1.022 Urine Protein 1+ H NEGATIVE Urine Glucose (UA) NEGATIVE NEGATIVE Urine Ketones NEGATIVE NEGATIVE Urine Nitrite NEGATIVE NEGATIVE Urine Bilirubin NEGATIVE NEGATIVE Urine Urobilinogen 1.0 < = 1.0 MG/DL Urine Leukocyte Esterase NEGATIVE NEGATIVE Urine RBC (Auto) 1+ H NEGATIVE Urine RBC 10-25 H /HPF Urine WBC NONE /HPF Urine Squamous Epithelial Cells NONE /HPF Urine Crystals NONE /LPF Urine Bacteria NEGATIVE /HPF Urine Casts NONE /LPF Urine Mucus NEGATIVE /LPF Urine Culture Indicated NO Sodium Level 131 L 135-145 MMOL/L Potassium Level 3.7 3.6-5.0 MMOL/L Chloride Level 95 L 98-107 MMOL/L Carbon Dioxide Level 26 21-32 MMOL/L Anion Gap 10 5-14 MMOL/L Blood Urea Nitrogen 24 H 7-18 MG/DL Creatinine 1.01 0.60-1.30 MG/DL Estimat Glomerular Filtration Rate > 60 BUN/Creatinine Ratio 24 Glucose Level 172 H 70-105 MG/DL Calcium Level 9.3 8.5-10.1 MG/DL Corrected Calcium 9.1 8.5-10.1 MG/DL Total Bilirubin 1.1 H 0.1-1.0 MG/DL Aspartate Amino Transf (AST/SGOT) 17 5-34 U/L Alanine Aminotransferase (ALT/SGPT) 13 0-55 U/L Alkaline Phosphatase 79 40-136 U/L Ammonia 24 11-32 UMOL/L Total Protein 6.7 6.4-8.2 GM/DL Albumin 4.2 3.2-4.5 GM/DL Procalcitonin 0.07 <0.10 NG/ML Urine Opiates Screen NEGATIVE NEGATIVE Urine Oxycodone Screen NEGATIVE NEGATIVE Urine Methadone Screen NEGATIVE NEGATIVE Urine Propoxyphene Screen NEGATIVE NEGATIVE Urine Barbiturates Screen NEGATIVE NEGATIVE Ur Tricyclic Antidepressants Screen NEGATIVE NEGATIVE Urine Phencyclidine Screen NEGATIVE NEGATIVE Urine Amphetamines Screen NEGATIVE NEGATIVE Urine Methamphetamines Screen NEGATIVE NEGATIVE Urine Benzodiazepines Screen POSITIVE H NEGATIVE Urine Cocaine Screen NEGATIVE NEGATIVE Urine Cannabinoids Screen NEGATIVE NEGATIVE Serum Alcohol < 10 <10 MG/DL Lactic Acid Level 1.37 0.50-2.00 MMOL/L My Orders Orders - GONSALES,ERMA L DO Alcohol (05/14/20 15:12) Ammonia (05/14/20 15:12) Cbc With Automated Diff (05/14/20 15:12) Comprehensive Metabolic Panel (05/14/20 15:12) Drug Screen Stat (Urine) (05/14/20 15:12) Lactic Acid Analyzer (05/14/20 15:12) Ua Culture If Indicated (05/14/20 15:12) I-Stat Bedside Testing (05/14/20 15:12) Naloxone Injection (Narcan Injection) (05/14/20 15:08) Ed Iv/Invasive Line Start (05/14/20 15:18) Ns Iv 1000 Ml (Sodium Chloride 0.9%) (05/14/20 15:18) Naloxone Injection (Narcan Injection) (05/14/20 15:30) Manual Differential (05/14/20 15:20) Ct Head Wo-R/O Stroke (05/14/20 16:53) Procalcitonin (Pct) (05/14/20 17:50) Covid 19 Inhouse Test (05/14/20 17:50) Medications Given in ED Vital Signs/I&O 05/14/20 05/14/20 05/14/20 05/15/20 19:50 20:24 22:48 00:28 Temp 37.3 37.8 37.9 Pulse 69 77 87 Resp 18 18 16 B/P (MAP) 152/66 (96) 188/77 150/70 (96) Pulse Ox 97 89 89 88 O2 Delivery Room Air Room Air Room Air Room Air 05/15/20 05/15/20 05/15/20 05/15/20 02:02 02:32 04:38 04:39 Temp 38.1 37.8 38.0 Pulse 94 Resp 14 B/P (MAP) 147/70 (95) Pulse Ox 84 92 O2 Delivery Room Air Nasal Cannula O2 Flow Rate 3.50 05/15/20 00:00 Intake Total 500 ml Balance 500 ml Capillary Refill : Progress Note : Time: 16:34 Progress Note I did bring family into the room patient has some mild decrease in his sodium consistent with some mild dehydration otherwise no other acute findings. Patient responds appropriately to his outside of the fact that he does not verbalize or open his eyes. Both daughters and were in present the room. I was able to clarify that up till yesterday patient did not have any dementia type symptoms that he just had the acute onset of behavioral issues and combativeness. They also checked his blood sugar home which remained normal. There was no prior knowledge of the family of a prior stroke especially in t alxmi found on CT exam yesterday. This time I will admit patient for further observation. Patient will possibly need an MRI to evaluate for maybe micro- strokes their affecting his behavior. He still does not show any acute neurologic findings as far as any generalized weakness. I did discuss with patient it could be he is not processing the Ativan that was needed to get this CAT scan due to his combativeness or there may be a stroke that was not showing up on the CT scan. Patient will be admitted in stable condition Departure Communication (Admissions) Time/Spoke to Admitting Phy: 18:00 place in observation, procalcitonin, covid swab Impression Primary Impression: Decreased responsiveness Disposition: ADMITTED INPATIENT Condition: Stable Admissions Decision to Admit Reason: Admit from ER (General) Decision to Admit/Date: May 14, 2020 Time/Decision to Admit Time: 18:00 Departure-Patient Inst. Referrals: GERI PAZ MD (PCP/Family) Primary Care Physician ERMA GONSALES DO May 14, 2020 15:12
[2020-05-14] MEDS ORDERED: NS IV 1000 ML 1,000 ML IV SCH (15:18)
[2020-05-14] MEDS ORDERED: NALOXONE 2 MG/2 ML (NARCAN) SYR IV ONE (15:30)
[2020-05-14 15:38] LABS: BASOPHILS % (AUTO) 0 % (0-10); EOSINOPHILS % (AUTO) 0 % (0-10); HEMATOCRIT 32 % (40-54); LYMPHOCYTES # (AUTO) 1.1 10^3/uL (1.0-4.0); LYMPHOCYTES % (AUTO) 9 % (12-44); MEAN CORPUSCULAR HEMOGLOBIN 30 pg (25-34); MEAN CORPUSCULAR HGB CONC 34 g/dL (32-36); MEAN CORPUSCULAR VOLUME 88 fL (80-99); MEAN PLATELET VOLUME 12.3 fL (9.0-12.2); MONOCYTES # (AUTO) 2.4 10^3/uL (0.0-1.0); MONOCYTES % (AUTO) 21 % (0-12); NEUTROPHILS # (AUTO) 8.2 10^3/uL (1.8-7.8); NEUTROPHILS % (AUTO) 69 % (42-75); PLATELET COUNT 104 10^3/uL (130-400); WHITE BLOOD COUNT 11.9 10^3/uL (4.3-11.0)
[2020-05-14 15:39] LABS: BILIRUBIN,URINE NEGATIVE (NEGATIVE); CLARITY,URINE SL CLOUDY; COLOR,URINE YELLOW; GLUCOSE, URINE (UA) NEGATIVE (NEGATIVE); KETONES,URINE NEGATIVE (NEGATIVE); LEUKOCYTE ESTERASE ,URINE NEGATIVE (NEGATIVE); NITRITE,URINE NEGATIVE (NEGATIVE); PROTEIN,URINE 1+ (NEGATIVE)
[2020-05-14 15:47] LABS: ALBUMIN 4.2 GM/DL (3.2-4.5); BACTERIA,URINE NEGATIVE /HPF; CHLORIDE 95 MMOL/L (98-107); POTASSIUM 3.7 MMOL/L (3.6-5.0); SODIUM 131 MMOL/L (135-145)
[2020-05-14 15:48] LABS: AMMONIA 24 UMOL/L (11-32); CALCIUM 9.3 MG/DL (8.5-10.1)
[2020-05-14 15:49] LABS: AMPHETAMINE SCREEN, URINE NEGATIVE (NEGATIVE); BARBITURATE SCREEN URINE NEGATIVE (NEGATIVE); BENZODIAZEPINES SCREEN URINE POSITIVE (NEGATIVE); CANNABINOID SCREEN, URINE NEGATIVE (NEGATIVE); COCAINE SCREEN URINE NEGATIVE (NEGATIVE); METHADONE STAT NEGATIVE (NEGATIVE); METHAMPHETAMINE SCREEN URINE S NEGATIVE (NEGATIVE); OPIATE SCREEN URINE NEGATIVE (NEGATIVE); OXYCODONE STAT NEGATIVE (NEGATIVE); PROPOXYPHENE STAT NEGATIVE (NEGATIVE); TRICYCLIC ANTIDEPRESSANTS SCRE NEGATIVE (NEGATIVE)
[2020-05-14 15:50] LABS: GLUCOSE 172 MG/DL (70-105); TOTAL PROTEIN 6.7 GM/DL (6.4-8.2)
[2020-05-14 15:51] LABS: BILIRUBIN,TOTAL 1.1 MG/DL (0.1-1.0); CARBON DIOXIDE 26 MMOL/L (21-32)
[2020-05-14 15:53] LABS: ALKALINE PHOSPHATASE 79 U/L (40-136); CREATININE SERUM 1.01 MG/DL (0.60-1.30); GFR ESTIMATED > 60
[2020-05-14 15:54] LABS: BUN/CREATININE RATIO 24
[2020-05-14 15:56] LABS: ALANINE AMINOTRANSFERASE 13 U/L (0-55)
--- NOTE | 2020-05-14 16:00 | NUR ---
et daughters brought to room #6 to be with pt per provider request. Provider in room visiting with family at this time.
[2020-05-14 16:04] LABS: BAND NEUTROPHILS 0 %; BASOPHILS % (MANUAL) 0 %; EOSINOPHILS % (MANUAL) 0 %; LYMPHOCYTES % (MANUAL) 12 %; MONOCYTES % (MANUAL) 16 %; NEUTROPHILS % (MANUAL) 72 %; RBC MORPH NORMAL
--- NOTE | 2020-05-14 17:34 | Diagnostic Imaging Report ---
PROCEDURE: CT head wo r/o stroke. TECHNIQUE: Multiple contiguous axial images were obtained through the brain without the use of intravenous contrast. Auto Exposure Controls were utilized during the CT exam to meet ALARA standards for radiation dose reduction. INDICATION: Neuro deficit, stroke, unresponsive COMPARISON: 05/13/2020 FINDINGS: Mild atrophy. No intracranial hemorrhage. Chronic lacunar infarction within the left thalamus is again identified. No CT evidence of an acute ischemic infarction. No intracranial mass, mass effect, midline shift, herniation, hydrocephalus, or extra-axial fluid collection. Minimal background chronic small vessel white matter ischemic disease is again noted. The bilateral ocular lenses are absent. Scattered vascular calcifications. The paranasal sinuses are clear. The calvarium and extracalvarial soft tissues are unremarkable. IMPRESSION: No acute intracranial abnormality with mild atrophy and mild background chronic ischemic changes, as described above. If there remains clinical concern for recent infarction, further evaluation with MRI of the brain would be recommended. Dictated by: Dictated on workstation # [id number]
[2020-05-14 20:24] VITALS: BP 188/77
[2020-05-14] MEDS ORDERED: CATHETER FLUSH 10 ML SYR IV PRN (20:30)
--- NOTE | 2020-05-14 21:06 | NUR ---
GERI TORRES admitted to room 416-1, with an admitting diagnosis of DECREASED RESPONSIVENESS, on 05/14/20 from ED via WHEELCHAIR, accompanied by STAFF .GERI TORRES introduced to surroundings, call light, bed controls, phone, TV, temperature control, lights, meal times, smoking policy, visitor policy, side rail policy, bathrooms and showers. Patient Rights given to patient in the handbook. GERI TORRES DID NOT verbalize understanding that [facility] is not responsible for the loss or damage to any personal effects or valuables that are kept in the patients posession during their hospitalization, DUE TO CURRENT STATE OD UNRESPONSIVENESS. and its purpose.
--- NOTE | 2020-05-14 21:08 | NUR ---
THIS RN ASSUMED CARE FOR THIS PT AT 1999. PATIENT IS IN A STATE OF DECREASED RESPONSIVENESS AND ONLY AROUSABLE TO DEEP PAIN STIMULI AND HASN'T OPENED EYES. CALL LIGHT WITHIN REACH AND PT NEEDS MET, WILL CONTINUE TO MONITOR AND ASSUME CARE ORDERED.
[2020-05-14] MEDS: NS IV 1000 ML 1,000 ML IV SCH (21:31)
--- NOTE | 2020-05-14 22:35 | NUR ---
This nurse notified Dr. Solo at 2012 in regards to obtaining an order for a catheter for this pt as he is in a current state of unresponsiveness and to help with accurate I/O's. Dr. hamayed the order, and the catheter was inserted successfully at 2220 after two attempts with a coude catheter as the regular catheter tip was curling during insertion, and a bladder scan. The scan showed 100 mL in the bladder, and 2 other RN's (Ivy & Laurita) assessed and also agreed the catheter was in the bladder and not curled. Pt initially had no urine flow when the catheter was placed, but started draining 5 minutes after and had filled the bag with 50 mL's. Once inserted, I reassessed the patient, and he still hasn't opened his eyes, but is mumbling/groaning and kicking/moving his feet intermittentley, as if he's trying to wake up. Will to monitor this pt's status
[2020-05-15] VITALS (7 sets, daily range): BP systolic 147–171; BP diastolic 67–82
--- NOTE | 2020-05-15 00:28 | NUR ---
This nurse notified Dr. Solo at 2334 in regards recieving an order for PRN oral suction. verified order for PRN suction, and I notified RT to also come assess and suction pt the first time. RT said they will get back with me to see if it's something us nurses want to do, or have RT do. During my initial physical admit, pt lung sounds were clear/diminished. At 2330, pt was developing a non productive cough, and lung sounds were coarse and also an audible gurgle was present in the pt's airway. This sounded like a rattle, and me and Ivy RN, came to assess this pt's respiratory problems with me, and agreed that it was just uncleared secretions from being unresponsive. However, during report from ED, it was noted Dr. Sue was going to discuss comfort care with this pt's family morning, but they pt's family claimed they didn't want/aren't for this pt being on comfort care when they dropped him off in the ED. This pt is a Full code. Will continue to monitor client, clients airway, and proceed with care as ordered.
[2020-05-15] MEDS ORDERED: ACETAMINOPHEN 325 MG SUPP (TYLENOL) ONE ×2 (01:45)
[2020-05-15] MEDS: ACETAMINOPHEN 650 MG SUPP (TYLENOL) PR PRN ×2 (02:02→06:50)
--- NOTE | 2020-05-15 02:29 | NUR ---
This RN notified Dr. Solo in regards to this pt's temp being 100.5 F @ 0115. Temperature was previously 100.2 F @ 0028, and I removed blankets/covers at that time in an attempt to lower pt's temperature. Pt is NPO, and Dr. Solo ordered Acetaminophen 650 mg Rectal Suppository prn q4HRS for temp and pain 1-4. Will continue to monitor pt's status and proceed with care as ordered.
--- NOTE | 2020-05-15 04:57 | NUR ---
This nurse took this pt's vitals at 0400 and his Spo2% was 84%. O2 via Nasal canula was applied at 3.5 L and he was satting at 92%. Will continue to monitor.
[2020-05-15 06:05] LABS: BASOPHILS % (AUTO) 0 % (0-10); EOSINOPHILS % (AUTO) 0 % (0-10); HEMATOCRIT 36 % (40-54); HEMOGLOBIN 12.1 g/dL (13.3-17.7); LYMPHOCYTES # (AUTO) 0.7 10^3/uL (1.0-4.0); LYMPHOCYTES % (AUTO) 5 % (12-44); MEAN CORPUSCULAR HEMOGLOBIN 30 pg (25-34); MEAN CORPUSCULAR HGB CONC 34 g/dL (32-36); MEAN CORPUSCULAR VOLUME 88 fL (80-99); MEAN PLATELET VOLUME 12.5 fL (9.0-12.2); MONOCYTES # (AUTO) 4.1 10^3/uL (0.0-1.0); MONOCYTES % (AUTO) 29 % (0-12); NEUTROPHILS # (AUTO) 9.4 10^3/uL (1.8-7.8); NEUTROPHILS % (AUTO) 65 % (42-75); PLATELET COUNT 101 10^3/uL (130-400); WHITE BLOOD COUNT 14.4 10^3/uL (4.3-11.0)
[2020-05-15 06:13] LABS: ALBUMIN 4.2 GM/DL (3.2-4.5); CHLORIDE 99 MMOL/L (98-107); POTASSIUM 3.1 MMOL/L (3.6-5.0); SODIUM 134 MMOL/L (135-145)
[2020-05-15 06:14] LABS: CALCIUM 9.1 MG/DL (8.5-10.1)
[2020-05-15 06:16] LABS: GLUCOSE 212 MG/DL (70-105); TOTAL PROTEIN 6.8 GM/DL (6.4-8.2)
[2020-05-15 06:17] LABS: BILIRUBIN,TOTAL 1.4 MG/DL (0.1-1.0); CARBON DIOXIDE 21 MMOL/L (21-32)
[2020-05-15 06:19] LABS: ALKALINE PHOSPHATASE 75 U/L (40-136); CREATININE SERUM 0.97 MG/DL (0.60-1.30); GFR ESTIMATED > 60
[2020-05-15 06:20] LABS: BUN/CREATININE RATIO 27
[2020-05-15 06:22] LABS: ALANINE AMINOTRANSFERASE 13 U/L (0-55)
[2020-05-15] MEDS: NS IV 1000 ML 1,000 ML IV SCH ×2 (06:35→16:32)
[2020-05-15] MEDS ORDERED: ONDANSETRON 4 MG/2 ML (SDV) Z0FRAN IV PRN (08:00)
[2020-05-15] MEDS ORDERED: ONDANSETRON 4 MG (ZOFRAN) ORAL DISSOLVE TAB PO PRN (08:00)
[2020-05-15] MEDS ORDERED: KCL 20 MEQ TAB (K-DUR) PO SCH (08:15)
[2020-05-15] MEDS ORDERED: MAGNESIUM 1 GM/100 ML IVPB 100 ML IV SCH (08:15)
[2020-05-15] MEDS ORDERED: POTASSIUM CL 10MEQ/50ML IVPB 50 ML IV SCH (08:15)
--- NOTE | 2020-05-15 09:20 | NUR ---
Palliative Care RN in to see patient donned in appropriate PPE for COVID19. Patient is a ill appearing male, a bit on the malnourished side as he is cachectic looking. Patient's cheeks are red and has a fevered appearance. He is warm to the touch and his bed linens are soaked. Unsure if this is from diaphoresis or from a leaking ice pack which he has earlier due to fever. Patient is minimally responsive. Hardly shows any acknowledgement of my verbal and tactile cues. The only thing he did was to move his feet(b/L). He allowed this RN to move his left arm up and down but he was resistive to movement of his right arm...exhibited very good strength in his resistance. Nurse, in room at the time. We collected COVID SWABS that were not yet collected in ED. We changed linens and repositioned patient.
--- NOTE | 2020-05-15 10:21 | NUR ---
PALLIATIVE CARE RN and Dr. Sue met with daughter, and son(by phone) regarding patient's medical situation. It does appear to be a stroke based on assessment but the CT w/o have failed to confirm this. Son who is in the radiology field has many questions and is NOT happy with a few things in the care of this patient. At the conclusion of the meeting it was decided to proceed with an MRI as well as to jordi the COVID swab send out results and well as the flu.
[2020-05-15] MEDS ORDERED: LORazepam INJ 2 MG/ML (ATIVAN) VIAL IVP NR (10:30)
--- NOTE | 2020-05-15 10:46 | Speech Therapy Progress Note ---
Therapy Progress Note ST received order for Bedside Dysphagia Evaluation. ST attempted to complete, however due to patient's status, BDE was not completed. Patient does not wake up even with verbal and tactile cuing. ST will follow up at a later time as appropriate. SHAHEEN FERNÁNDEZ May 15, 2020 10:46
[2020-05-15] MEDS ORDERED: inSUlin ASPART (NovoLOG) 1 UNIT/0.01 ML (CHARGE PER UNIT) SC SCH (11:00)
[2020-05-15] MEDS: ENOXAPARIN 30 MG/0.3 ML (LOVENOX) SYR SC SCH (11:05)
[2020-05-15] MEDS: inSUlin ASPART (NovoLOG) 1 UNIT/0.01 ML (CHARGE PER UNIT) SC SCH ×3 (12:43→23:47)
[2020-05-15] MEDS: POTASSIUM CL 10MEQ/50ML IVPB 50 ML IV SCH ×4 (12:43→16:31)
--- NOTE | 2020-05-15 13:42 | NUR ---
Phone call to pt's Irina to provide support. Irina answered the phone and soon sounded tearful, then asked if her daughter Radha could speak with me. Radha shared that they anticipate finding out the pt's COVID results by 6p today. [employer] offered empathic listening and compassion as daughter shared stressors, grief and concerns for patient's condition. She shared that the patient is [facility] and a member of [facility] in [place]. Radha welcomed prayer and expressed appreciation for our phone call.
--- NOTE | 2020-05-15 15:04 | History & Physical-Hospitalist ---
History of Present Illness HPI/Chief Complaint Keenan Van is an 85-year-old male with past medical history of hypertension, diabetes, GERD, hyperlipidemia, BPH, iron deficiency anemia, who presented with altered mental status. He had been in the emergency room on 05/13 and evaluated for confusion. Due to his clinical condition, he is unable to provide any history. I spoke with his and daughter in the waiting room. His states that 2 days ago in the morning he was confused. He was evaluated at that time in the emergency room. His workup revealed no lab abnormalities and his CT head was without acute abnormalities. He was not found to have any focal neurologic deficits. He was discharged back home. The following day he returned to the emergency room with decreased level of responsiveness. He had been given Ativan the day before for his CT scan and there was concern that this was causing his altered level of consciousness. A repeat head CT was performed and again showed no acute abnormalities. Overnight he has been febrile and had a cough. He is responsive only to painful stimuli. Source: patient Exam Limitations: no limitations Date Seen 05/15/20 Time Seen by a Provider: 09:00 Attending Physician Danyel Avery MD PCP Keenan Kirkland MD Referring Physician Date of Admission May 14, 2020 at 18:33 Home Medications & Allergies Home Medications Reviewed patient Home Medication Reconciliation performed by pharmacy medication reconciliations lead technician and/or nursing. Patients Allergies have been reviewed. Allergies Allergies Coded Allergies No Known Drug Allergies (Unverified09/16/12) Past Nampqej-Dyskcq-Qypczj Hx Past Med/Social Hx: Reviewed Nursing Past Med/Soc Hx Patient Social History Alcohol Use: Denies Use Recreational Drug Use: No Smoking Status: Unknown if Ever Smoked 2nd Hand Smoke Exposure: No Recent Foreign Travel: No Contact w/other who traveled: No Recent Hopitalizations: No Recent Infectious Disease Expo: No Immunizations Up To Date Tetanus Booster (TDap): More than 5yrs Date of Pneumonia Vaccine: Aug 16, 2011 Date of Influenza Vaccine: May 16, 2019 Past Medical History Cardiac: Hypertension Reproductive: No Sexually Transmitted Disease: No HIV/AIDS: No Genitourinary: Benign Prostatic Hyperpl Gastrointestinal: Gastroesophageal Reflux, Chronic Constipation Musculoskeletal: Fractures, Gout Endocrine: Diabetes, Non-Insulin dep HEENT: Cataract Hearing Impairment: Hard of Hearing History of Blood Disorders: No Review of Systems ROS-Unable to Obtain: obtunded Constitutional: see HPI Physical Exam Physical Exam Vital Signs Vital Signs - First Documented 05/14/20 05/15/20 15:07 04:39 Temp 38.0 Pulse 69 Resp 20 B/P (MAP) 153/68 (96) Pulse Ox 96 O2 Delivery Room Air O2 Flow Rate 3.50 Capillary Refill : Less Than 3 SecondsLess Than 3 Seconds Height, Weight, BMI Height: 5'5.00" Weight: 125lbs. oz. 56.391810vl; 15.79 BMI Method:Stated General Appearance: Chronically ill, Cachetic, Other (unresponsive) HEENT: PERRL/EOMI Neck: Normal Inspection, Supple Respiratory: No Respiratory Distress, Decreased Breath Sounds, Rhonci Cardiovascular: Regular Rate, Rhythm, No Edema, No Murmur Gastrointestinal: Normal Bowel Sounds, Non Tender, Soft Extremity: Normal Inspection, Non Tender, No Pedal Edema Neurologic/Psychiatric: Abnormal mine car mechanic II-XII, Aphasia, Facial Droop (left- sided), Motor Weakness Skin: Normal Color, Warm/Dry Results Results/Procedures Labs Laboratory Tests 05/14/20 15:20 05/15/20 05:30 Patient resulted labs reviewed. Imaging: Reviewed Imaging Report Assessment/Plan Admission Diagnosis acute encephalopathy Admission Status: Observation Assessment and Plan Acute encephalopathy Likely acute ischemic stroke Advanced age Poor prognosis CT head with no acute abnormalities 05/13 and 05/14 infectious workup negative thus far Palliative care consulted, appreciate assistance discussion with family about poor prognosis, they plan to make a decision regarding comfort/hospice after further imaging nothing by mouth obtain MRI Sepsis Fever Leukocytosis SIRS+ with fever and leukocytosis possibly secondary to acute stroke chest x-ray 05/13 with no acute abnormalities UA not indicative of UTI Blood cultures pending Influenza negative COVID rapid testing negative, PCR pending HTN T2DM HLD GERD BPH hold home meds at this time DVT prophylaxis: Lovenox Diagnosis/Problems Diagnosis/Problems (1) Acute encephalopathy Status: Acute (2) SIRS (systemic inflammatory response syndrome) Status: Acute (3) Fever Status: Acute (4) Leukocytosis Status: Acute (5) Advanced age Status: Chronic (6) Poor prognosis Status: Acute (7) HTN (hypertension) Status: Chronic (8) T2DM (type 2 diabetes mellitus) Status: Chronic Qualifiers: Diabetes mellitus predatory animal 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
[2020-05-15] MEDS ORDERED: LORazepam INJ 2 MG/ML (ATIVAN) VIAL ONE (15:14)
[2020-05-15] MEDS: cefTRIAXone FOR IV USE 1,000 MG in WATER (STERILE) FOR INJECTION 10 ML IV SCH (16:31)
--- NOTE | 2020-05-15 16:53 | Diagnostic Imaging Report ---
PROCEDURE: MR imaging of the brain without contrast. TECHNIQUE: Multiplanar, multisequence MR imaging of the brain was performed without contrast. DATE: May 15, 2020. COMPARISON: CT head May 14, 2020. HISTORY: 85-year-old male, stroke like symptoms. Weakness. FINDINGS: There is no restricted diffusion. There are no areas of abnormal intracranial susceptibility. There is proportional prominence of the ventricles and CSF spaces, consistent with moderate to severe cerebral volume loss. There are prominent perivascular spaces in the region of the left thalamus. There are T2 and FLAIR hyperintense foci in the periventricular and subcortical white matter, likely relating to mild changes of chronic small vessel ischemic disease. There is no abnormal extra-axial fluid collection. There is no acute intracranial hemorrhage. There is no mass effect or midline shift. There is normal aeration of the visualized paranasal sinuses and mastoid air cells. IMPRESSION: 1. No evidence of an acute infarct or other acute intracranial abnormality. 2. Moderate to severe cerebral volume loss with mild changes of chronic small vessel ischemic disease. 3. The report was called to the patient's nurse Karis by rosie@4:52 PM. Dictated by: Dictated on workstation # [id number]
[2020-05-16] VITALS (8 sets, daily range): BP systolic 148–182; BP diastolic 61–82
--- NOTE | 2020-05-16 00:10 | NUR ---
This nurse notified Dr. Solo about this pt's last two Blood pressure readings at 2000 (160/75) and 0000 (172/77) in an attempt to obtain an order to reduce BP. Dr. Solo responded " monitor only will assess in am." I will continue to monitor patients status and provide care as ordered. Pt needs are met at this time, call light is within reach, and bed alarm is set.
--- NOTE | 2020-05-16 00:16 | NUR ---
This RN call lead therapist at 2346 in regards to this pt's airway needing suctioned. At 0000, pt was suctioned by Respiratory with NG suction catheter and sputum was creamy/yellow and very thick. Respiratory said they will come down during their next round at 0200 to suction as needed. After suctioning, patient wasn't clearing his throat or coughing intermittentely, and seemed to be resting more comftorably after bring suctioned. During suctioning, Patient did seem more alert, and opened his eyes, and was reaching for the RT as she was performing suctioning out of what looked like discomfort. After suctioning, patient closed his eyes and went to sleep, but is definetely more aware of his surroundings.
[2020-05-16] MEDS: NS IV 1000 ML 1,000 ML IV SCH ×2 (03:19→13:06)
--- NOTE | 2020-05-16 03:55 | NUR ---
At 0400, this RN and Pauline Haynes (RN) took Keenan's vitals. Keenan had his eyes open, and I asked him to look at me, and he did very slowly and delayed. We maintained eye contact and I asked him if he remembered his family visiting him yesterday morning/afternoon, and he stated and nodded his head slowly no. I told him they would be back to visit him today and he nodded his head as he seemingly ackowledged what I said. I told him his , daughter, and son came to visit him today, and I asked him if he had a son, and he nodded. I told him his son traveled back home just to see him. I additionally asked him to squeeze my finger with his left hand, and he couldn't, but maintained eye contact as if he was trying. I then asked him to squeeze my finger with his right hand, and he did very firmly with great strength. Throughout the shift, he's progressively becoming more aware of his surroundings and seems to be regaining responsiveness. Will continue to monitor patient and provide care as ordered.
[2020-05-16] MEDS: inSUlin ASPART (NovoLOG) 1 UNIT/0.01 ML (CHARGE PER UNIT) SC SCH ×3 (05:57→18:00)
[2020-05-16 07:41] LABS: BASOPHILS % (AUTO) 0 % (0-10); EOSINOPHILS % (AUTO) 0 % (0-10); HEMATOCRIT 29 % (40-54); HEMOGLOBIN 9.8 g/dL (13.3-17.7); LYMPHOCYTES # (AUTO) 0.6 10^3/uL (1.0-4.0); LYMPHOCYTES % (AUTO) 6 % (12-44); MEAN CORPUSCULAR HEMOGLOBIN 30 pg (25-34); MEAN CORPUSCULAR HGB CONC 33 g/dL (32-36); MEAN CORPUSCULAR VOLUME 89 fL (80-99); MEAN PLATELET VOLUME 13.4 fL (9.0-12.2); MONOCYTES # (AUTO) 1.5 10^3/uL (0.0-1.0); MONOCYTES % (AUTO) 16 % (0-12); NEUTROPHILS # (AUTO) 7.1 10^3/uL (1.8-7.8); NEUTROPHILS % (AUTO) 77 % (42-75); PLATELET COUNT 74 10^3/uL (130-400); WHITE BLOOD COUNT 9.3 10^3/uL (4.3-11.0)
[2020-05-16 07:55] LABS: BUN/CREATININE RATIO 33; CALCIUM 8.2 MG/DL (8.5-10.1); CARBON DIOXIDE 19 MMOL/L (21-32); CHLORIDE 106 MMOL/L (98-107); CREATININE SERUM 0.79 MG/DL (0.60-1.30); GFR ESTIMATED > 60; GLUCOSE 138 MG/DL (70-105); MAGNESIUM 1.3 MG/DL (1.6-2.4); POTASSIUM 3.2 MMOL/L (3.6-5.0); SODIUM 138 MMOL/L (135-145)
--- NOTE | 2020-05-16 08:16 | NUR ---
Palliative Care RN reviewed patient chart and noted that his COVID PCR is negative which gets him out of isolation. His MRI was also negative for stroke. He was found to be bacteremic and given ABX. He is this morning responding to verbal stimuli and actually responding with answers. Family is not yet here this morning.
[2020-05-16] MEDS: ENOXAPARIN 30 MG/0.3 ML (LOVENOX) SYR SC SCH (08:28)
[2020-05-16] MEDS: MAGNESIUM 1 GM/100 ML IVPB 100 ML IV SCH ×4 (08:29→11:46)
[2020-05-16] MEDS: POTASSIUM CL 10MEQ/50ML IVPB 50 ML IV SCH ×4 (08:29→11:45)
[2020-05-16] MEDS ORDERED: hydrALAZINE (APESOLINE) 20 MG/ML VIAL IV PRN (10:00)
--- NOTE | 2020-05-16 15:16 | Progress Note - Hospitalist ---
Subjective HPI/CC On Admission Date Seen by Provider: May 16, 2020 Time Seen by Provider: 10:00 Keenan Van is an 85-year-old male with past medical history of hypertension, diabetes, GERD, hyperlipidemia, BPH, iron deficiency anemia, who presented with altered mental status. He had been in the emergency room on 05/13 and evaluated for confusion. Due to his clinical condition, he is unable to provide any history. I spoke with his and daughter in the waiting room. His states that 2 days ago in the morning he was confused. He was evaluated at that time in the emergency room. His workup revealed no lab abnormalities and his CT head was without acute abnormalities. He was not found to have any focal neurologic deficits. He was discharged back home. The following day he returned to the emergency room with decreased level of responsiveness. He had been given Ativan the day before for his CT scan and there was concern that this was causing his altered level of consciousness. A repeat head CT was performed and again showed no acute abnormalities. Overnight he has been febrile and had a cough. He is responsive only to painful stimuli. Subjective/Events-last exam he is more awake today. He opens his eyes and says some words. He remains lethargic. He has left-sided weakness. Focused Exam Lactate Level 05/14/20 16:30: Lactic Acid Level 1.37 Objective Exam Vital Signs Vital Signs Date Time Temp Pulse Resp B/P (MAP) Pulse Ox O2 Delivery O2 Flow Rate FiO2 05/16/20 12:09 36.3 87 16 148/61 (90) 98 Nasal Cannula 3.00 Capillary Refill : Less Than 3 SecondsLess Than 3 Seconds General Appearance: No Apparent Distress, Chronically ill, Cachetic Respiratory: Lungs Clear, Normal Breath Sounds, No Respiratory Distress Cardiovascular: Regular Rate, Rhythm, No Edema, No Murmur Gastrointestinal: Normal Bowel Sounds, Non Tender, Soft Extremity: Normal Inspection, Non Tender, No Pedal Edema Neurologic/Psychiatric: Motor Weakness, Other (lethargic, disoriented) Skin: Normal Color, Warm/Dry Results/Procedures Lab Laboratory Tests 05/16/20 07:16 Patient resulted labs reviewed. Imaging: Reviewed Imaging Report Assessment/Plan Assessment and Plan Assess & Plan/Chief Complaint Sepsis Gram negative cristhian bacteremia Septic encephalopathy Advanced age Poor prognosis CT head with no acute abnormalities 05/13 and 05/14 MRI Brain revealed no acute stroke 05/15 Palliative care consulted, appreciate assistance nothing by mouth, mean bedside swallow unable Blood culture with gram negative rods, final results pending Influenza negative COVID negative started on Rocephin Hypokalemia Hypomagnesemia Continue to monitor and replace as needed HTN T2DM HLD GERD BPH hold home meds at this time, resume when able DVT prophylaxis: Lovenox Diagnosis/Problems Diagnosis/Problems (1) Gram-negative bacteremia Status: Acute (2) Acute encephalopathy Status: Acute (3) SIRS (systemic inflammatory response syndrome) Status: Acute (4) Fever Status: Acute (5) Leukocytosis Status: Acute (6) Advanced age Status: Chronic (7) Poor prognosis Status: Acute (8) HTN (hypertension) Status: Chronic (9) T2DM (type 2 diabetes mellitus) Status: Chronic Qualifiers: Diabetes mellitus fci insulin use: with fci use (10) HLD (hyperlipidemia) Status: Chronic (11) GERD (gastroesophageal reflux disease) Status: Chronic (12) BPH (benign prostatic hyperplasia) Status: Chronic Clinical Quality Measures DVT/VTE Risk/Contraindication: Risk Factor Score Per Nursin RFS Level Per Nursing on Admit: 4+=Very High DANYEL AVERY MD May 16, 2020 15:16
[2020-05-16] MEDS: cefTRIAXone FOR IV USE 1,000 MG in WATER (STERILE) FOR INJECTION 10 ML IV SCH (16:51)
[2020-05-17] MEDS: inSUlin ASPART (NovoLOG) 1 UNIT/0.01 ML (CHARGE PER UNIT) SC SCH ×4 (00:32→18:49)
[2020-05-17] MEDS: NS IV 1000 ML 1,000 ML IV SCH (00:37)
[2020-05-17 04:31] VITALS: BP 170/77
[2020-05-17 08:00] VITALS: BP 158/77
[2020-05-17] MEDS: ENOXAPARIN 30 MG/0.3 ML (LOVENOX) SYR SC SCH (09:00)
--- NOTE | 2020-05-17 09:00 | ST Dysphagia Evaluation ---
Speech Evaluation-General Medical Diagnosis Acute encephalopothy, SIRS Onset Date: May 15, 2020 Therapy Diagnosis Therapy Diagnosis: Oropharyngeal Dysphagia Precautions Precautions: Aspiration Referral Referring Physician: Dr. Sue Medical History Reviewed History: No Social History Current Living Status: Other Family Speech PLF/Current-Dysphagia Prior Level of Function Patient lives at home with other family who assist him with all of his daily needs. Subjective Patient was alert and participated well with the Bedside Dysphagia Evaluation. Cognitive Status Patient Orientation: Person, Confused Oral Motor Skills Dentition: Natural, Tumbled, Stained Ability to Follow Directions: Good Patient was NPO pending BDE Oral Expression Ability: Mild Impairment Voice Voice Phonatory-Based Quality: Weak Voice Pitch: Normal Voice Loudness: Moderately Soft/Quiet Face Facial Symmetry: Symmetrical Oral-Facial Assessment Oral-Facial Dentition: Normal Smile: Reduced ROM Lingual Protrusion: Normal Lingual ROM: Normal Lingual Strength: Normal Pharynx Velopharyngeal Move.: Normal Volitional Dry Swallow: Yes Voluntary Cough: Yes Can Clear Throat Volitionally: Yes Dysphagia Evaluation Consistencies Presented: Thin Liquid, Mechanical Soft, Pureed Oral stage is within normal range of function for all consistencies presented. Pharyngeal stage is within normal range of function for thin and puree consistencies presented. Patient exhibited a piece meal swallow with mechanical soft. No s/s of aspiration noted with any presentations. Dietary Recommendations: Mechanical Soft Liquid Recommendations: Thin Swallowing Precautions: Alternate Liquids/Solids, Liquids from Straw, Small Bites and Sips, Sitting Upright 90 Degrees, Sitting 90 Degrees 30 Post Intake Dysphagia Evaluation Summary Patient was referred earlier in the week for a Bedside Dysphagia Evaluation to be completed. At the time of evaluation attempt the ST was unable to complete due to inability to rouse the patient. The patient was alert and able to participate this date and the BDE was completed. The patient was given 1/2 tsp of thin liquids x2 and small sips via straw x2 without difficulty. The patient was also presented with 1/2 tsp bites of puree and mechanical soft with the patient tolerating well without s/s of aspiration. The patient stated he only ate softer foods and declined the regular texture trial (cracker). Patient is recommended for a Dysphagia II diet level with thin liquids. This information was provided to his nurse, Patricia as well as written on the white board in his room. Barriers to Learning Patient's health issues, age Speech Short Term Goals Short Term Goals Short Term Goals 1) Patient will tolerate the least restrictive diet level without s/s of aspiration at 80% or greater. 2) Patient/caregiver will utilize safety strategies for all oral intake at 90% or greater given minimal cues. Speech Certified Social Workers In Health Care Goals [facility] Goals Patient will maintain adequate nutrition/hydration via safe effective swallow function. Speech-Plan Patient/Family Goals Patient/Family Goals: Patient plans on returning to his prior living environment upon discharge. Treatment Plan Speech Therapy Treatment Plan: Discontinue ST Treatment Duration: May 17, 2020 Frequency: 1 time per week Estimated Hrs Per Day: .5 hour per day Rehab Potential: Fair Barriers to Learning: Patient's health issues, age Pt/Family Agrees to Plan: Yes Safety Risks/Education Teaching Recipient: Patient Teaching Methods: Demonstration, Discussion Response to Teaching: Verbalize Understanding, Return Demonstration, Reinforcement Needed Education Topics Provided: Diet level and safety of intake Time Speech Therapy Time In: 07:55 Speech Therapy Time Out: 08:18 Total Billed Time: 23 Billed Treatment Time 1, DIXON DYST SHAHEEN Lucero May 17, 2020 09:00
[2020-05-17 09:25] LABS: BASOPHILS % (AUTO) 0 % (0-10); EOSINOPHILS % (AUTO) 0 % (0-10); HEMATOCRIT 30 % (40-54); HEMOGLOBIN 10.1 g/dL (13.3-17.7); LYMPHOCYTES # (AUTO) 0.7 10^3/uL (1.0-4.0); LYMPHOCYTES % (AUTO) 9 % (12-44); MEAN CORPUSCULAR HEMOGLOBIN 30 pg (25-34); MEAN CORPUSCULAR HGB CONC 34 g/dL (32-36); MEAN CORPUSCULAR VOLUME 89 fL (80-99); MONOCYTES # (AUTO) 0.9 10^3/uL (0.0-1.0); MONOCYTES % (AUTO) 11 % (0-12); NEUTROPHILS # (AUTO) 6.6 10^3/uL (1.8-7.8); NEUTROPHILS % (AUTO) 78 % (42-75); PLATELET COUNT 79 10^3/uL (130-400); WHITE BLOOD COUNT 8.4 10^3/uL (4.3-11.0)
[2020-05-17 09:41] LABS: BUN/CREATININE RATIO 29; CALCIUM 8.3 MG/DL (8.5-10.1); CARBON DIOXIDE 16 MMOL/L (21-32); CHLORIDE 106 MMOL/L (98-107); CREATININE SERUM 0.73 MG/DL (0.60-1.30); GFR ESTIMATED > 60; GLUCOSE 123 MG/DL (70-105); MAGNESIUM 1.8 MG/DL (1.6-2.4); PHOSPHORUS 1.8 MG/DL (2.3-4.7); POTASSIUM 3.2 MMOL/L (3.6-5.0); SODIUM 139 MMOL/L (135-145)
[2020-05-17] MEDS ORDERED: amLODIPine 5 MG (NORVASC) TAB PO ONE (10:45)
[2020-05-17] MEDS ORDERED: meTOproloL SUCCINATE 50 MG (TOPROL XL) TAB PO SCH (10:45)
[2020-05-17] MEDS ORDERED: ASPIRIN E.C. 81 MG (ECOTRIN) TAB PO ONE (10:45)
[2020-05-17] MEDS ORDERED: POT PHOS/NA PHOS (K-PHOS NEUTRAL) PO ONE (10:45)
[2020-05-17] MEDS ORDERED: lisINopril 40 MG (PRINIVIL) TABLET PO ONE (10:45)
[2020-05-17] MEDS ORDERED: MAGNESIUM 1 GM/100 ML IVPB 100 ML IV ONE (10:45)
[2020-05-17] MEDS ORDERED: KCL 20 MEQ TAB (K-DUR) PO ONE (10:45)
--- NOTE | 2020-05-17 10:53 | NUR ---
PALLIATIVE CARE RN saw patient on rounds with Dr Sue. Patient is found to be additionally improved over yesterday. Today is is having conversations, is offering up jokes and reports that he doesn't mind staying he because he likes it. We will be starting a diet and getting POT/OT involved to get him back to his PLOF... which was independent and mowing the lawn 3 days prior to admit. We had a discussion about the various discharge plans of care including IRF, SNF and or home with C if he continues to make drastic improvements. and son, who are in the room, understand. of course is resorting to her hope in prayers for the later. Estrada to be discontinued..
--- NOTE | 2020-05-17 11:07 | Physical Therapy Evaluation ---
PT Evaluation-General Medical Diagnosis Admission Date May 14, 2020 at 18:33 Medical Diagnosis: Acute encephalopathy Onset Date: May 14, 2020 Therapy Diagnosis Therapy Diagnosis: Impaired mobility, strength, and ROM Height/Weight Height (Feet): 5 Height (Inches): 5.00 Weight (Pounds): 125 Precautions Precautions/Isolations: Fall Prevention, Standard Precautions Referral Physician: Vikram Reason for Referral: Evaluation/Treatment Medical History Additional Medical History Past Medical History Cardiac: Hypertension Reproductive: No Sexually Transmitted Disease: No HIV/AIDS: No Genitourinary: Benign Prostatic Hyperpl Gastrointestinal: Gastroesophageal Reflux, Chronic Constipation Musculoskeletal: Fractures, Gout Endocrine: Diabetes, Non-Insulin dep HEENT: Cataract Hearing Impairment: Hard of Hearing Reviewed History: Yes Social History Home: Single Level Current Living Status: Spouse Entry Into Home: Stairs Without Railing (Pt relies on wall to steady himself with entry steps) PT Steps Into Home: 2 PT Steps Inside Home: 0 Prior Prior Level of Function SCALE: Activities may be completed with or without assistive devices. 5-Xyuowmaeqw-dbchyho completes the activity by him/herself with no assistance from a helper. 5-Set-up or Clean-up Assistance-helper sets up or cleans up; patient completes activity. [place] assists only prior to or following the activity. 4-Supervision or Touching Assistance-helper provides verbal cues and/or touching/steadying and/or contact guard assistance as patient completes activity. Assistance may be provided throughout the activity or intermittently. 3-Partial/Moderate Assistance-helper does LESS THAN HALF the effort. Ponder lifts, holds or supports trunk or limbs, but provides less than half the effort. 2-Substantial/Maximal Assistance-helper does MORE THAN HALF the effort. Ponder lifts or holds trunk or limbs and provides more than half the effort. 6-Kbfljqclu-axepdh does ALL the effort. Patient does none of the effort to complete the activity. Or, the assistance of 2 or more helpers is required for the patient to complete the activity. If activity was not attempted, code reason: 7-Patient Refused. 9-Not Applicable-not attempted and the patient did not perform the activity before the current illness, exacerbation or injury. 10-Not Attempted due to Environmental Limitations-(lack of equipment, weather restraints, etc.). 88-Not Attempted due to Medical Conditions or Safety Concerns. Bed Mobility: 6 Transfers (B,C,W/C): 6 Gait: 6 Stairs: 6 Indoor Mobility (Ambulation): Independent Stairs: Independent Prior Devices Use: None PT Evaluation-Current Subjective Subject presents laying supine in bed. Pt agrees to PT. Pt's and son are present in room and answered questions about prior level of function. Patient voices no complaints of pain. Pt/Family Goals Return home to Objective Patient Orientation: Person, Confused, Eyes Open Attachments: Oxygen, Estrada Catheter, IV ROM/Strength ROM Lower Extremities WNL Strength Lower Extremities NT, patient too confused to follow directions Sensory Sensation Right Lower Extremit: Impaired Sensation Left Lower Extremity: Impaired Sensation Lower Extremities Unable to clearly assess sensation; pt able to describe where he was being touched but was not consistent with correct area or on L vs R leg. No other testing performed due to confusion. Transfers Roll Left to Right (QC): 2 Sit to Lying (QC): 1 Lying to Sitting/Side of Bed(Q: 1 Sit to Stand (QC): 3 Pt depended with lying<->EOB due to inability to follow directions and confusion. Pt complete xic-gh-bohai despite instructions to remain seated until safety protocols were put into place; pt reports he needed to urinate but did not understand that he had a catheter in place. Patient was able to take a couple of small steps sideways toward the head of the bed. Balance Sitting Static: Poor Sitting Dynamic: Poor Standing Static: Poor Standing Dynamic: Poor Treatment Pt was able to side step towards L 2feet Assessment/Needs Pt is unable to follow therapy instructions. Pt is unable to sit up straight independently and his impulsive behavior to stand makes him a fall risk. Patient BTB post tx with nurse call, bed alarm on, family and nurse in room. Rehab Potential: Poor PT Microbiology Supervisor Goals [facility] Goals PT Microbiology Supervisor Goals Time Frame: May 24, 2020 Roll Left & Right (QC): 4 Sit to Lying (QC): 3 Lying-Sitting on Side/Bed(QC): 3 Sit to Stand (QC): 3 Chair/Ozj-sd-Xbzlt Xfer(QC): 3 Walk 10 feet (QC): 3 Wheel 50 feet with 2 turns (QC: 4 Wheel 150 feet: 4 PT Plan Problem List Problem List: Activity Tolerance, Functional Strength, Safety, Balance, Gait, Transfer, Bed Mobility, ROM Treatment/Plan Treatment Plan: Continue Plan of Care Treatment Plan: Bed Mobility, Education, Functional Activity Ivan, Functional Strength, Gait, Safety, Therapeutic Exercise, Transfers Treatment Duration: May 31, 2020 Frequency: 6 times per week Estimated Hrs Per Day: .25 hour per day Patient and/or Family Agrees t: Yes Safety Risks/Education Patient Education: Gait Training, Transfer Techniques, Correct Positioning, Safety Issues Teaching Recipient: Patient Teaching Methods: Demonstration, Discussion Response to Teaching: Reinforcement Needed Discharge Recommendations Plan Pt will work on bed mobility, transfers, function strengthening and balance. Therapy Discharge Recommendati: Other, See Comments (NH) Time/GCodes Time In: 1040 Time Out: 1057 Total Billed Treatment Time: 17 Total Billed Treatment 1 visit JAY FERRIS PT May 17, 2020 11:07
[2020-05-17] MEDS: D5 1/2 NS W/KCL 20 MEQ/L 1,000 ML IV SCH (11:09)
--- NOTE | 2020-05-17 11:09 | Occupational Therapy Eval ---
OT Evaluation-General/PLF Medical Diagnosis Admission Date May 14, 2020 at 18:33 Medical Diagnosis: decreased responsiveness Onset Date: May 13, 2020 Therapy Diagnosis Therapy Diagnosis: decreased ADLs, impaired functional mobility Height/Weight Height (Feet): 5 Height (Inches): 5.00 Weight (Pounds): 125 Precautions Precautions/Isolations: Fall Prevention, Standard Precautions Referral Physician: Vikram Referral Reason: Evaluation/Treatment Medical History Current History Pt to ED due to confusion and decreased responsiveness Social History Home: Single Level Current Living Status: Significant Other Entry Into Home: Stairs Without Railing Steps Into Home: 2 ADL-Prior Level of Function SCALE: Activities may be completed with or without assistive devices. 9-Kekarnxgae-mqbadzy completes the activity by him/herself with no assistance from a helper. 5-Set-up or Clean-up Assistance-helper sets up or cleans up; patient completes activity. [place] assists only prior to or following the activity. 4-Supervision or Touching Assistance-helper provides verbal cues and/or touching/steadying and/or contact guard assistance as patient completes activity. Assistance may be provided throughout the activity or intermittently. 3-Partial/Moderate Assistance-helper does LESS THAN HALF the effort. [place] lifts, holds or supports trunk or limbs, but provides less than half the effort. 2-Substantial/Maximal Assistance-helper does MORE THAN HALF the effort. [place] lifts or holds trunk or limbs and provides more than half the effort. 7-Ajuildckc-cemegg does ALL the effort. Patient does none of the effort to complete the activity. Or, the assistance of 2 or more helpers is required for the patient to complete the activity. If activity was not attempted, code reason: 7-Patient Refused. 9-Not Applicable-not attempted and the patient did not perform the activity before the current illness, exacerbation or injury. 10-Not Attempted due to Environmental Limitations-(lack of equipment, weather restraints, etc.). 88-Not Attempted due to Medical Conditions or Safety Concerns. ADL PLOF Comments Pt's and son present, indicate pt was independent with ADLs and functional mobility at OF, without AD/AE. Pt has a tub/shower, without a shower chair. Self Care: Independent Functional Cognition: Independent DME/Equipment: Tub/Shower OT Current Status Subjective Pt laying in bed, family present. Pt agreeable to OT evaluation at this time Mental Status/Objective Patient Orientation: Person, Confused Attachments: Drains, IV Current Upper Extremity ROM Pt unable to follow instructions, unable to assess Upper Extremity Coordination Pt unable to follow instructions, unable to assess ADL-Treatment On/Off Footwear (QC): 1 Other Treatments Pt laying in bed, family present. OT introduced self and educated pt and family on benefits/purpose of OT. Pt unable to provide history but pt's family indicate he was independent at [facility]. Pt required max verbal cues for sequencing and safety throughout session, pt instructed to sit EOB, pt moved legs side to side but unable to follow verbal/tactile cues to bring legs to side. Pt required max A to sit EOB. Once EOB, pt attempted to stand without warning, max verbal and tactile cues for pt to remain seated. Pt instructed to take off socks, pt then started attempting to take of hospital band from wrist. Pt dependent for donning/doffing footwear due to difficulty following instructions and confusion. Once gripper socks were donned, pt again stood without warning, stating he needed to urinate, assist X2 in stand for pt's safety. Pt educated on having catheter, but pt insisted he needed to urinate. Pt able to side step towards HOB. Pt then sat EOB, leaning back and towards the L side, requiring assistance with sitting balance. Max A sit to supine. Post OT tx, pt laying in bed, nurse present stating they were removing the catheter. All needs met, nurse present, call light in reach. Education OT Patient Education: Correct positioning, Energy conservation, Modified ADL techniques, Progress toward Goal/Update tx plan, Purpose of tx/functional activities, Safety issues, Transfer techniques Teaching Recipient: Patient Teaching Methods: Discussion Response to Teaching: Reinforcement Needed OT Nursing Home Goals Director [employer] Goals Time Frame: May 31, 2020 Eating (QC): 6 Oral Hygiene (QC): 6 Toileting Hygiene (QC): 6 Shower/Bathe Self (QC): 6 Upper Body Dressing (QC): 6 Lower Body Dressing (QC): 6 On/Off Footwear (QC): 6 1=Demonstrate adherence to instructed precautions during ADL tasks. 2=Patient will verbalize/demonstrate understanding of assistive devices/modifications for ADL. 3=Patient will improve strength/tolerance for activity to enable patient to perform ADL's. OT Education/Plan Problem List/Assessment Assessment: Decreased Activ Tolerance, Decreased Safety Aware, Decreased UE Strength, Impaired Bed Mobility, Impaired Cognition, Impaired Funct Balance, Impaired I ADL's, Impaired Self-Care Skills Discharge Recommendations Plan/Recommendations: Continue POC Comment discharge location and equipment recommendations to be determined Treatment Plan/Plan of Care Treatment,Training & Education: Yes Patient would benefit from OT for education, treatment and training to promote independence in ADL's, mobility, safety and/or upper extremity function for ADL's. Plan of Care: ADL Retraining, Functional Mobility, UE Funct Exercise/Act, UE Neuromus Re-Ed/Coord Treatment Duration: May 31, 2020 Frequency: 5 times per week Estimated Hrs Per Day: .25 hour per day Time/GCodes Start Time: 10:40 Stop Time: 10:57 Total Time Billed (hr/min): 17 Billed Treatment Time 1, JYOTI FARAH OT May 17, 2020 11:09
--- NOTE | 2020-05-17 11:26 | Diagnostic Imaging Report ---
INDICATION: Pneumonia. TIME OF EXAM: 11:09 a.m. COMPARISON: Correlation is made with prior chest from 05/13/2020. FINDINGS: Heart size is normal. Patchy infiltrate has developed in the right upper lobe suggestive of pneumonia. There also appears to be some infiltrate in the left base. No effusion or pneumothorax is detected. Heart size is stable. IMPRESSION: Right upper lobe as well as left basilar pneumonia, new since chest radiograph from 05/13/2020. Dictated by: Dictated on workstation # [id number]
[2020-05-17 12:00] VITALS: BP 179/85
[2020-05-17] MEDS: POTASSIUM CL 10MEQ/50ML IVPB 50 ML IV SCH ×4 (12:26→15:36)
--- NOTE | 2020-05-17 12:41 | Progress Note - Hospitalist ---
Subjective HPI/CC On Admission Date Seen by Provider: May 17, 2020 Time Seen by Provider: 09:45 Keenan Van is an 85-year-old male with past medical history of hypertension, diabetes, GERD, hyperlipidemia, BPH, iron deficiency anemia, who presented with altered mental status. He had been in the emergency room on 05/13 and evaluated for confusion. Due to his clinical condition, he is unable to provide any history. I spoke with his and daughter in the waiting room. His states that 2 days ago in the morning he was confused. He was evaluated at that time in the emergency room. His workup revealed no lab abnormalities and his CT head was without acute abnormalities. He was not found to have any focal neurologic deficits. He was discharged back home. The following day he returned to the emergency room with decreased level of responsiveness. He had been given Ativan the day before for his CT scan and there was concern that this was causing his altered level of consciousness. A repeat head CT was performed and again showed no acute abnormalities. Overnight he has been febrile and had a cough. He is responsive only to painful stimuli. Subjective/Events-last exam he is more awake today. He is able to answer questions. He is able to hold a conversation. He has been having some confusion and visual hallucinations. He has been seeing spiders and asking for a fly swatter. He denies any shortness of breath. He denies any pain. Focused Exam Lactate Level 05/14/20 16:30: Lactic Acid Level 1.37 Objective Exam Vital Signs Vital Signs Date Time Temp Pulse Resp B/P (MAP) Pulse Ox O2 Delivery O2 Flow Rate FiO2 05/17/20 12:00 36.6 69 18 179/85 (116) 99 Nasal Cannula 3.00 Capillary Refill : Less Than 3 SecondsLess Than 3 Seconds General Appearance: No Apparent Distress, Chronically ill, Cachetic HEENT: PERRL/EOMI, Pharynx Normal Neck: Normal Inspection, Supple Respiratory: Lungs Clear, Normal Breath Sounds, No Respiratory Distress Cardiovascular: Regular Rate, Rhythm, No Edema, No Murmur Gastrointestinal: Normal Bowel Sounds, Non Tender, Soft Extremity: Normal Inspection, Non Tender, No Pedal Edema Neurologic/Psychiatric: Alert, Normal Mood/Affect, Disoriented, Motor Weakness Skin: Normal Color, Warm/Dry Results/Procedures Lab Laboratory Tests 05/17/20 08:56 Patient resulted labs reviewed. Imaging: Reviewed Imaging Report Assessment/Plan Assessment and Plan Assess & Plan/Chief Complaint Sepsis Gram negative cristhian bacteremia Septic encephalopathy Advanced age Poor prognosis CT head with no acute abnormalities 05/13 and 05/14 MRI Brain revealed no acute stroke 05/15 Palliative care consulted, appreciate assistance Blood culture with gram negative rods, final results pending Influenza negative COVID negative chest x-ray today revealed multifocal pneumonia Continue Rocephin will need rehabilitation on discharge severe protein calorie malnutrition Dietary consult Ensure Hypokalemia Hypomagnesemia Hypophosphatemia Continue to monitor and replace as needed T2DM sliding scale insulin HTN HLD GERD BPH resume home meds DVT prophylaxis: Lovenox Diagnosis/Problems Diagnosis/Problems (1) Gram-negative bacteremia Status: Acute (2) Acute encephalopathy Status: Acute (3) SIRS (systemic inflammatory response syndrome) Status: Acute (4) Fever Status: Acute (5) Leukocytosis Status: Acute (6) Advanced age Status: Chronic (7) Poor prognosis Status: Acute (8) HTN (hypertension) Status: Chronic (9) T2DM (type 2 diabetes mellitus) Status: Chronic Qualifiers: Diabetes mellitus lobsterman insulin use: with lobsterman use (10) HLD (hyperlipidemia) Status: Chronic (11) GERD (gastroesophageal reflux disease) Status: Chronic (12) BPH (benign prostatic hyperplasia) Status: Chronic Clinical Quality Measures DVT/VTE Risk/Contraindication: Risk Factor Score Per Nursin RFS Level Per Nursing on Admit: 4+=Very High DANYEL AVERY MD May 17, 2020 12:41
--- NOTE | 2020-05-17 15:46 | NUR ---
"RD ASSESSMENT PMHx: HTN; DM; GERD; HLD; BPH; iron-deficiency anemia; chronic constipation PT INTERACTION: Pt was awake and pleasant during dietary consult for malnutrition. Pt states current appetite is good, but it had been poor for the past few days. Note pt was NPO x3d, per chart review. Pt states following a regular diet at home, and had previously no issuse with chewing/swallowing food. Note pt has poor dentition, per visual assessment. Note pt currently on DYS2 Mechanically Altered diet, per chart review. Pt states no recent issues with nausea, vomiting, constipation, or diarrhea, and that he is unsure of his last BM. Note no BM has been recorded, and pt not currently on bowel regimen per chart review. Pt states current DM management is pretty good. Note unable to determine recent HbA1c, per chart review. Pt states recent wt loss, but unsure of amount/timeframe. Note recent 15# wt loss x7mon, per chart review. This is significant wt loss at 13%. Upon visual assessment, pt appears to be undernourished with visible signs of muscle/fat wasting that could be attributed to wt loss or advanced age. Note pt has BMI of 15.8 (Underweight BMI for age). Given wt hx, PO intake, and visual assessment, pt meets criteria for malnutrition per ASPEN guidelines. ABNORMAL NUTRITION-RELATED LAB VALUES LOW: K 3.2; Ca 8.3; phos 1.3 HIGH: BUN 21; glu 123 Est. kcal needs: 1650 kcal | 35 kcal/kg Est. Pro needs: 66 g Pro | 1.4 g Pro/kg PES STATEMENT: Inadequate oral intake (NI-2.1) related to loss of appetite as evidenced by pt interview | PO intake 25% x1meal INTERVENTION: Continue with current diet order of DYS2 Mechanically Altered diet. Continue with current supplementation order of Ensure HP (vary) with meals TID, for increased kcal and protein intake. Provides 160 kcal and 16 g Pro per serving. Encouraged pt to eat when able. Will continue to follow and reassess as pt needs, intake, and status change. Mercedes Greer, MS RD LD"
--- NOTE | 2020-05-17 16:08 | NUR ---
visited w/ pt's and son in the [place] and then went in with pt welcomed the visit and prayer.
[2020-05-17 16:38] VITALS: BP 166/72
[2020-05-17] MEDS: cefTRIAXone FOR IV USE 1,000 MG in WATER (STERILE) FOR INJECTION 10 ML IV SCH (16:38)
[2020-05-17 20:01] VITALS: BP 162/70
[2020-05-17] MEDS: GABAPENTIN 100 MG (NEURONTIN) CAP PO SCH (22:03)
[2020-05-17] MEDS: ACETAMINOPHEN 325 MG TABLET PO PRN (22:03)
--- NOTE | 2020-05-17 22:45 | CONSULTATION REPORT ---
DATE OF SERVICE: 05/17/2020 The patient is admitted to room 416. PHYSICIAN REQUESTING CONSULTATION: Dr. Catie Sue. IMPRESSION: 1. An 85-year-old male admitted with mental status changes. 2. Gram-negative sepsis with Klebsiella pneumoniae. 3. Previous history of pancytopenia and severe iron deficiency anemia, status post parenteral iron therapy. RECOMMENDATIONS: 1. Continue current management for gram-negative sepsis with appropriate antibiotic. 2. His blood counts are relatively stable except for mild anemia and thrombocytopenia. This does not need any intervention at this time and we will continue to follow serially. 3. Because of his age and performance status, his prognosis is guarded. 4. We will follow the patient with you. The patient is an 85-year-old male who was admitted to the hospital with mental status changes. The patient was unresponsive at the time of evaluation and the history was obtained from his and son. They mentioned that he was not feeling well since Wednesday. He was taken to the emergency room, both on Wednesday and Wednesday and was evaluated and sent home. He did have CT scan of the head done, which was unremarkable. As he became more confused and unresponsive, he was brought back to the emergency room and admitted to [facility]. Workup including blood cultures did show evidence of gram-negative bacteremia and sepsis as the probable cause for mental status changes. He was started on broad spectrum antibiotics pending culture and sensitivity. Hematology consultation was requested because of thrombocytopenia and anemia as well as previous history of pancytopenia. PAST MEDICAL HISTORY: Hypertension for more than 50 years. He was diagnosed with diabetes mellitus approximately 10 years ago and controlled with oral agents. He had pancytopenia in fall and had a bone marrow aspiration and biopsy, which was unremarkable except for severe iron deficiency. He was tried on oral iron replacement and did not tolerate this and hence took one course of parenteral iron therapy with improvement in his blood counts. PAST SURGICAL HISTORY: TURP x3 for BPH. No other major surgeries. SOCIAL HISTORY: The patient is and lives in [place], [place]. He has two adopted children, a daughter who lives close by and a son who lives in [place]. 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 He has [id number] history of tobacco use, but quit in 1969. No alcohol or recreational drug use. No significant exposure to chemicals or pesticides that he knows of. FAMILY HISTORY: Unknown as his mother when he was 2-1/2 years old and his father when he was 10 years old. He has no significant contact with the rest of the family. PHYSICAL EXAMINATION: GENERAL: Today showed an elderly male, somnolent and barely arousable. Unable to give any history. VITAL SIGNS: His temperature was 36.6, pulse rate of 73, respirations 18, blood pressure 166/72, oxygen saturation of 96% on 3 liters of oxygen by nasal cannula. HEENT: Normocephalic, extraocular muscles intact, conjunctivae slightly pale, oral mucosa moist. NECK: Supple, with no JVD. No cervical, supraclavicular or axillary lymphadenopathy palpable. CHEST: Symmetrical. LUNGS: Fairly clear to auscultation without wheezes or rales. CARDIOVASCULAR: Regular in rate and rhythm. No murmurs or gallops heard. ABDOMEN: Soft, nontender with no hepatosplenomegaly or other masses palpable. EXTREMITIES: Showed no edema. NEUROLOGIC: Grossly intact without focal motor deficits. LABORATORY DATA: CBC done today showed WBC 8.4, hemoglobin 10.1, platelet count 79,000 with neutrophil count 6.6 and lymphocyte count 0.7. At the time of admission on 05/14/2020, his white count was 11.9, hemoglobin 11.0 and platelet count 104,000. BMP done today showed relatively normal electrolytes except potassium level of 3.2 and carbon dioxide 16. BUN was 21 and creatinine 0.73 with GFR more than 60 mL per minute. Nonfasting glucose was 123. Magnesium was 1.8 with phosphorus low at 1.8. Chest x-ray done today showed right upper lobe as well as left basilar patchy infiltrates, which is new since his admission. MRI of the brain showed no evidence of an acute infarct or intracranial abnormality. Moderate to severe cerebral volume loss with mild changes of chronic small vessel ischemic disease. Blood cultures done at the time of admission on 05/14/2020 showed Klebsiella pneumoniae sensitive to all antibiotics except ampicillin. Urinalysis done at the time of admission was unremarkable with no evidence of infection, but small amount of hematuria with urine RBCs of 10 to 25 per high power field. Thank you for allowing me to participate in this patient's care. I will follow the patient with you and make appropriate recommendations. Job ID: [id number] DocumentID: [id number] Dictated Date: 05/17/2020 17:17:03 Child Abuse Worker Date: 05/17/2020 22:44:50 Dictated By: CUONG MYERS MD
[2020-05-17 23:54] VITALS: BP 154/72
[2020-05-18] MEDS: inSUlin ASPART (NovoLOG) 1 UNIT/0.01 ML (CHARGE PER UNIT) SC SCH ×4 (00:25→16:24)
[2020-05-18] MEDS: D5 1/2 NS W/KCL 20 MEQ/L 1,000 ML IV SCH ×2 (00:34→11:40)
[2020-05-18 04:50] VITALS: BP 174/86
[2020-05-18 07:57] LABS: BUN/CREATININE RATIO 14; CALCIUM 8.7 MG/DL (8.5-10.1); CARBON DIOXIDE 23 MMOL/L (21-32); CHLORIDE 105 MMOL/L (98-107); GFR ESTIMATED > 60; GLUCOSE 193 MG/DL (70-105); PHOSPHORUS 1.5 MG/DL (2.3-4.7); POTASSIUM 3.3 MMOL/L (3.6-5.0); SODIUM 138 MMOL/L (135-145)
[2020-05-18] MEDS ORDERED: SODIUM PHOSPHATE INJ 15 MM in D5W 100 ML IVPB 100 ML IV ONE (08:45)
[2020-05-18] MEDS ORDERED: POTASSIUM CL 10MEQ/50ML IVPB 50 ML IV SCH (08:45)
[2020-05-18 08:48] VITALS: BP 157/67
[2020-05-18] MEDS ORDERED: KCL 20 MEQ TAB (K-DUR) PO ONE (09:01)
[2020-05-18] MEDS: ASPIRIN E.C. 81 MG (ECOTRIN) TAB PO SCH (09:08)
[2020-05-18] MEDS: meTOproloL SUCCINATE 50 MG (TOPROL XL) TAB PO SCH (09:09)
[2020-05-18] MEDS: amLODIPine 5 MG (NORVASC) TAB PO SCH (09:09)
[2020-05-18] MEDS: ENOXAPARIN 30 MG/0.3 ML (LOVENOX) SYR SC SCH (09:09)
[2020-05-18] MEDS: lisINopril 40 MG (PRINIVIL) TABLET PO SCH (09:11)
[2020-05-18 11:19] VITALS: BP 164/78
--- NOTE | 2020-05-18 12:38 | Physical Therapy Daily Note ---
PT Daily Note-Current Subjective Pt very confused. He thought he was at home. Pt had just fallen prior to my arrival. Reports he was trying to hang curtains. He got out of bed without assist and tried to walk to the window. Transfers SCALE: Activities may be completed with or without assistive devices. 8-Ktyrzmjcvq-griovio completes the activity by him/herself with no assistance from a helper. 5-Set-up or Clean-up Assistance-helper sets up or cleans up; patient completes activity. Mimbres assists only prior to or following the activity. 4-Supervision or Touching Assistance-helper provides verbal cues and/or touching/steadying and/or contact guard assistance as patient completes act ivity. Assistance may be provided throughout the activity or intermittently. 3-Partial/Moderate Assistance-helper does LESS THAN HALF the effort. Mimbres lifts, holds or supports trunk or limbs, but provides less than half the effort. 2-Substantial/Maximal Assistance-helper does MORE THAN HALF the effort. Mimbres lifts or holds trunk or limbs and provides more than half the effort. 4-Gziszjbjw-zggshs does ALL the effort. Patient does none of the effort to complete the activity. Or, the assistance of 2 or more helpers is required for the patient to complete the activity. If activity was not attempted, code reason: 7-Patient Refused. 9-Not Applicable-not attempted and the patient did not perform the activity before the current illness, exacerbation or injury. 10-Not Attempted due to Environmental Limitations-(lack of equipment, weather restraints, etc.). 88-Not Attempted due to Medical Conditions or Safety Concerns. Assisted patient to supine on the floor. Assessed hip and shoulder ROM. Pt had no c/o pain. With assist from nursing we moved patient into supine and then into standing with Maximal assist. Pt took 5 steps to bed with Max assist. Pt moderate assist to position in bed. Assessment Pt had extensor tone when in standing. He extended the trunk and legs. Pt unsafe for upright mobility at this time. PT Group Home Goals Group Home Goals PT Gear Hobber Goals Time Frame: May 24, 2020 Roll Left & Right (QC): 4 Sit to Lying (QC): 3 Lying-Sitting on Side/Bed(QC): 3 Sit to Stand (QC): 3 Chair/Mjz-lq-Mhdik Xfer(QC): 3 Walk 10 feet (QC): 3 Wheel 50 feet with 2 turns (QC: 4 Wheel 150 feet: 4 PT Plan Treatment/Plan Treatment Plan: Continue Plan of Care Treatment Plan: Bed Mobility, Education, Functional Activity Ivan, Functional Strength, Gait, Safety, Therapeutic Exercise, Transfers Treatment Duration: May 31, 2020 Frequency: 6 times per week Estimated Hrs Per Day: .25 hour per day Patient and/or Family Agrees t: Yes Time/GCodes Time In: 929 Time Out: 944 Total Billed Treatment Time: 10 Total Billed Treatment visit, FA 15 minutes REINIER JEWELL PT May 18, 2020 12:38
--- NOTE | 2020-05-18 15:32 | Progress Note - Hospitalist ---
Subjective HPI/CC On Admission Date Seen by Provider: May 18, 2020 Time Seen by Provider: 09:10 Keenan Van is an 85-year-old male with past medical history of hypertension, diabetes, GERD, hyperlipidemia, BPH, iron deficiency anemia, who presented with altered mental status. He had been in the emergency room on 05/13 and evaluated for confusion. Due to his clinical condition, he is unable to provide any history. I spoke with his and daughter in the waiting room. His states that 2 days ago in the morning he was confused. He was evaluated at that time in the emergency room. His workup revealed no lab abnormalities and his CT head was without acute abnormalities. He was not found to have any focal neurologic deficits. He was discharged back home. The following day he returned to the emergency room with decreased level of responsiveness. He had been given Ativan the day before for his CT scan and there was concern that this was causing his altered level of consciousness. A repeat head CT was performed and again showed no acute abnormalities. Overnight he has been febrile and had a cough. He is responsive only to painful stimuli. Subjective/Events-last exam he is awake and alert today. He is oriented to person, place, month, and president. He is disoriented to year. He does have some delirium and is a pulling at his hospital gown. He has been up and walk to the bathroom with his nurse. He has been eating a bit. He has no complaints or concerns. Objective Exam Vital Signs Vital Signs Date Time Temp Pulse Resp B/P (MAP) Pulse Ox O2 Delivery O2 Flow Rate FiO2 05/18/20 11:19 36.6 58 18 164/78 (106) 97 Room Air 05/18/20 04:50 3.00 Capillary Refill : Less Than 3 SecondsLess Than 3 Seconds General Appearance: No Apparent Distress, Cachetic HEENT: PERRL/EOMI, Pharynx Normal Neck: Normal Inspection, Supple Respiratory: Lungs Clear, Normal Breath Sounds, No Respiratory Distress Cardiovascular: Regular Rate, Rhythm, No Edema, No Murmur Gastrointestinal: Normal Bowel Sounds, Non Tender, Soft Extremity: Normal Inspection, Non Tender, No Pedal Edema Neurologic/Psychiatric: Alert, Oriented x3, No Motor/Sensory Deficits, Normal Mood/Affect Skin: Normal Color, Warm/Dry Results/Procedures Lab Laboratory Tests 05/18/20 07:17 Patient resulted labs reviewed. Imaging: Reviewed Imaging Report Assessment/Plan Assessment and Plan Assess & Plan/Chief Complaint Klebsiella pneumoniae bacteremia Multifocal pneumonia Advanced age Poor prognosis CT head with no acute abnormalities 05/13 and 05/14 MRI Brain revealed no acute stroke 05/15 Palliative care consulted, appreciate assistance Blood culture revealed Klebsiella pneumoniae original chest x-ray with no acute abnormalities, repeat shows multifocal pneumonia Influenza negative COVID negative chest x-ray today revealed multifocal pneumonia Continue Rocephin will need rehabilitation on discharge Delirium reorient as needed Avoid delirium triggers severe protein calorie malnutrition Dietary consult Ensure Hypokalemia Hypomagnesemia Hypophosphatemia Continue to monitor and replace as needed T2DM sliding scale insulin HTN HLD GERD BPH resume home meds DVT prophylaxis: Lovenox Sepsis, resolved Septic encephalopathy, resolved Diagnosis/Problems Diagnosis/Problems (1) Bacteremia due to Klebsiella pneumoniae Status: Acute (2) Multifocal pneumonia Status: Acute (3) Acute encephalopathy Status: Resolved Resolution Date/Time: 05/18/20 @ 15:31 (4) SIRS (systemic inflammatory response syndrome) Status: Resolved Resolution Date/Time: 05/18/20 @ 15:31 (5) Fever Status: Resolved Resolution Date/Time: 05/18/20 @ 15:31 (6) Leukocytosis Status: Resolved Resolution Date/Time: 05/18/20 @ 15:31 (7) Advanced age Status: Chronic (8) Poor prognosis Status: Acute (9) HTN (hypertension) Status: Chronic (10) T2DM (type 2 diabetes mellitus) Status: Chronic Qualifiers: Diabetes mellitus intermediate insulin use: with intermediate use (11) HLD (hyperlipidemia) Status: Chronic (12) GERD (gastroesophageal reflux disease) Status: Chronic (13) BPH (benign prostatic hyperplasia) Status: Chronic (14) Debility Status: Acute (15) Severe protein-calorie malnutrition Status: Acute Clinical Quality Measures DVT/VTE Risk/Contraindication: Risk Factor Score Per Nursin RFS Level Per Nursing on Admit: 4+=Very High DANYEL AVERY MD May 18, 2020 15:32
[2020-05-18 16:00] VITALS: BP 183/72
[2020-05-18] MEDS: cefTRIAXone FOR IV USE 1,000 MG in WATER (STERILE) FOR INJECTION 10 ML IV SCH (16:23)
[2020-05-18 19:28] VITALS: BP 102/78
[2020-05-18] MEDS: GABAPENTIN 100 MG (NEURONTIN) CAP PO SCH (20:48)
[2020-05-18] MEDS: ACETAMINOPHEN 325 MG TABLET PO PRN (20:49)
[2020-05-18 23:50] VITALS: BP 165/72
[2020-05-19 04:07] VITALS: BP_SYST 153; BP_SYST 154; BP_DIAS 66; BP_DIAS 72
[2020-05-19 06:06] LABS: CHLORIDE 102 MMOL/L (98-107); POTASSIUM 3.9 MMOL/L (3.6-5.0); SODIUM 139 MMOL/L (135-145)
[2020-05-19 06:07] LABS: CALCIUM 8.8 MG/DL (8.5-10.1)
[2020-05-19 06:08] LABS: GLUCOSE 118 MG/DL (70-105)
[2020-05-19] MEDS: inSUlin ASPART (NovoLOG) 1 UNIT/0.01 ML (CHARGE PER UNIT) SC SCH ×4 (06:09→17:10)
[2020-05-19 06:10] LABS: CARBON DIOXIDE 26 MMOL/L (21-32)
[2020-05-19 06:12] LABS: GFR ESTIMATED > 60; PHOSPHORUS 2.2 MG/DL (2.3-4.7)
[2020-05-19 06:13] LABS: BUN/CREATININE RATIO 16
[2020-05-19 06:14] LABS: MAGNESIUM 1.6 MG/DL (1.6-2.4)
[2020-05-19] MEDS ORDERED: POT PHOS/NA PHOS (K-PHOS NEUTRAL) PO ONE (07:30)
[2020-05-19 08:00] VITALS: BP 167/76
[2020-05-19] MEDS: MAGNESIUM 1 GM/100 ML IVPB 100 ML IV SCH ×2 (08:25→09:50)
[2020-05-19] MEDS: lisINopril 40 MG (PRINIVIL) TABLET PO SCH (08:26)
[2020-05-19] MEDS: ENOXAPARIN 30 MG/0.3 ML (LOVENOX) SYR SC SCH (08:26)
[2020-05-19] MEDS: meTOproloL SUCCINATE 50 MG (TOPROL XL) TAB PO SCH (08:26)
[2020-05-19] MEDS: amLODIPine 5 MG (NORVASC) TAB PO SCH (08:26)
[2020-05-19] MEDS: ASPIRIN E.C. 81 MG (ECOTRIN) TAB PO SCH (08:27)
[2020-05-19] MEDS ORDERED: CEFDINIR 300 MG (OMNICEF) CAP PO ONE (11:00)
--- NOTE | 2020-05-19 11:01 | Progress Note - Hospitalist ---
Subjective HPI/CC On Admission Date Seen by Provider: May 19, 2020 Time Seen by Provider: 08:45 Keenan Van is an 85-year-old male with past medical history of hypertension, diabetes, GERD, hyperlipidemia, BPH, iron deficiency anemia, who presented with altered mental status. He had been in the emergency room on 05/13 and evaluated for confusion. Due to his clinical condition, he is unable to provide any history. I spoke with his and daughter in the waiting room. His states that 2 days ago in the morning he was confused. He was evaluated at that time in the emergency room. His workup revealed no lab abnormalities and his CT head was without acute abnormalities. He was not found to have any focal neurologic deficits. He was discharged back home. The following day he returned to the emergency room with decreased level of responsiveness. He had been given Ativan the day before for his CT scan and there was concern that this was causing his altered level of consciousness. A repeat head CT was performed and again showed no acute abnormalities. Overnight he has been febrile and had a cough. He is responsive only to painful stimuli. Subjective/Events-last exam he is awake and alert and eating breakfast upon my arrival. He is oriented to person, place, situation, month, and year. He denies any trouble breathing. He denies any fevers. He has no complaints or concerns. Objective Exam Vital Signs Vital Signs Date Time Temp Pulse Resp B/P (MAP) Pulse Ox O2 Delivery O2 Flow Rate FiO2 05/19/20 08:00 36.4 64 19 167/76 (106) 96 Room Air 05/18/20 04:50 3.00 Capillary Refill : Less Than 3 SecondsLess Than 3 Seconds General Appearance: No Apparent Distress, Cachetic Respiratory: Lungs Clear, Normal Breath Sounds, No Respiratory Distress Cardiovascular: Regular Rate, Rhythm, No Edema, No Murmur Gastrointestinal: Normal Bowel Sounds, Non Tender, Soft Extremity: Normal Inspection, Non Tender, No Pedal Edema Neurologic/Psychiatric: Alert, Oriented x3, Normal Mood/Affect, Motor Weakness Skin: Normal Color, Warm/Dry Results/Procedures Lab Laboratory Tests 05/19/20 05:13 Patient resulted labs reviewed. Imaging: Reviewed Imaging Report Assessment/Plan Assessment and Plan Assess & Plan/Chief Complaint Klebsiella pneumoniae bacteremia Multifocal pneumonia Advanced age Poor prognosis Palliative care consulted, appreciate assistance Transition to Omnicef will need rehabilitation on discharge, SNF vs IRF Delirium reorient as needed Avoid delirium triggers severe protein calorie malnutrition Dietary consult Ensure Hypokalemia Hypomagnesemia Hypophosphatemia Continue to monitor and replace as needed T2DM sliding scale insulin HTN HLD GERD BPH resume home meds DVT prophylaxis: Lovenox Sepsis, resolved Septic encephalopathy, resolved Diagnosis/Problems Diagnosis/Problems (1) Bacteremia due to Klebsiella pneumoniae Status: Acute (2) Multifocal pneumonia Status: Acute (3) Acute encephalopathy Status: Resolved Resolution Date/Time: 05/18/20 @ 15:31 (4) SIRS (systemic inflammatory response syndrome) Status: Resolved Resolution Date/Time: 05/18/20 @ 15:31 (5) Fever Status: Resolved Resolution Date/Time: 05/18/20 @ 15:31 (6) Leukocytosis Status: Resolved Resolution Date/Time: 05/18/20 @ 15:31 (7) Advanced age Status: Chronic (8) Poor prognosis Status: Acute (9) HTN (hypertension) Status: Chronic (10) T2DM (type 2 diabetes mellitus) Status: Chronic Qualifiers: Diabetes mellitus exterminator insulin use: with exterminator use (11) HLD (hyperlipidemia) Status: Chronic (12) GERD (gastroesophageal reflux disease) Status: Chronic (13) BPH (benign prostatic hyperplasia) Status: Chronic (14) Debility Status: Acute (15) Severe protein-calorie malnutrition Status: Acute Clinical Quality Measures DVT/VTE Risk/Contraindication: Risk Factor Score Per Nursin RFS Level Per Nursing on Admit: 4+=Very High DANYEL AVERY MD May 19, 2020 11:01
[2020-05-19 12:00] VITALS: BP 163/71
[2020-05-19 15:28] VITALS: BP 98/77
[2020-05-19 15:37] VITALS: BP 149/68
[2020-05-19 19:46] VITALS: BP_SYST 172
[2020-05-19] MEDS: CEFDINIR 300 MG (OMNICEF) CAP PO SCH (20:27)
[2020-05-19] MEDS: GABAPENTIN 100 MG (NEURONTIN) CAP PO SCH (20:27)
[2020-05-19] MEDS: ACETAMINOPHEN 325 MG TABLET PO PRN (20:30)
[2020-05-20] VITALS (7 sets, daily range): BP systolic 114–178; BP diastolic 64–82
[2020-05-20] MEDS: inSUlin ASPART (NovoLOG) 1 UNIT/0.01 ML (CHARGE PER UNIT) SC SCH ×4 (00:06→17:47)
[2020-05-20 06:50] LABS: CHLORIDE 102 MMOL/L (98-107); POTASSIUM 3.9 MMOL/L (3.6-5.0); SODIUM 138 MMOL/L (135-145)
[2020-05-20 06:51] LABS: CALCIUM 8.8 MG/DL (8.5-10.1)
[2020-05-20 06:52] LABS: GLUCOSE 166 MG/DL (70-105)
[2020-05-20 06:53] LABS: CARBON DIOXIDE 25 MMOL/L (21-32)
[2020-05-20 06:55] LABS: PHOSPHORUS 2.8 MG/DL (2.3-4.7)
[2020-05-20 06:56] LABS: CREATININE SERUM 0.81 MG/DL (0.60-1.30); GFR ESTIMATED > 60
[2020-05-20 06:57] LABS: BUN/CREATININE RATIO 26
[2020-05-20 06:59] LABS: MAGNESIUM 1.8 MG/DL (1.6-2.4)
[2020-05-20] MEDS: amLODIPine 5 MG (NORVASC) TAB PO SCH (08:13)
[2020-05-20] MEDS: lisINopril 40 MG (PRINIVIL) TABLET PO SCH (08:13)
[2020-05-20] MEDS: CEFDINIR 300 MG (OMNICEF) CAP PO SCH ×2 (08:13→20:20)
[2020-05-20] MEDS: ASPIRIN E.C. 81 MG (ECOTRIN) TAB PO SCH (08:13)
[2020-05-20] MEDS: meTOproloL SUCCINATE 50 MG (TOPROL XL) TAB PO SCH (08:13)
[2020-05-20] MEDS: ENOXAPARIN 30 MG/0.3 ML (LOVENOX) SYR SC SCH (08:14)
--- NOTE | 2020-05-20 09:44 | Occupational Ther Daily Note ---
OT Current Status-Daily Note Subjective No pain reported. Appearance Pt. in bed, leaning to side when OT entered room. Pt. alert. Mental Status/Objective Patient Orientation: Unable to Assess ADL-Treatment Therapy Code Descriptions/Definitions Functional [place] Measure: 0=Not Assessed/NA 4=Minimal Assistance 1=Total Assistance 5=Supervision or Setup 2=Maximal Assistance 6=Modified [place] 3=Moderate Assistance 7=Complete IndependenceSCALE: Activities may be completed with or without assistive devices. 3-Pauomuhyoe-eqorwpm completes the activity by him/herself with no assistance from a helper. 5-Set-up or Clean-up Assistance-helper sets up or cleans up; patient completes activity. [place] assists only prior to or following the activity. 4-Supervision or Touching Assistance-helper provides verbal cues and/or touching/steadying and/or contact guard assistance as patient completes activity. Assistance may be provided throughout the activity or intermittently. 3-Partial/Moderate Assistance-helper does LESS THAN HALF the effort. [place] lifts, holds or supports trunk or limbs, but provides less than half the effort. 2-Substantial/Maximal Assistance-helper does MORE THAN HALF the effort. [place] lifts or holds trunk or limbs and provides more than half the effort. 1-Ireogszkt-dufokh does ALL the effort. Patient does none of the effort to complete the activity. Or, the assistance of 2 or more helpers is required for the patient to complete the activity. If activity was not attempted, code reason: 7-Patient Refused. 9-Not Applicable-not attempted and the patient did not perform the activity before the current illness, exacerbation or injury. 10-Not Attempted due to Environmental Limitations-(lack of equipment, weather restraints, etc.). 88-Not Attempted due to Medical Conditions or Safety Concerns. Eating (QC): 6 Breakfast in room. Pt. laying in bed and feeding self. OT asks pt. if he would like to sit on side of bed and eat and he would. Pt. transfers supine-sit with SBA. Pt. able to exhibit appropriate balance 90% of time while feeding. No difficulty swallowing, and pt. eating fast. Noted only soft foods on tray. At times, pt. would begin to lean to left and required cues to correct self. Pt. finishes breakfast, and then agrees to ambulate with OT, as he has not been up yet. Stood with walker and ambulated approximately 150 feet. Pt. requires CGA and constant cues, as he is impulsive and will push walker fast. Walker will stray side to side, and will get out too far in front of him. Once pt. is encouraged to slow down, he is able to do so and is able to keep walker closer to himself. Pt. taken back to room. OT asks pt. if he needs to use restroom. He does not . Transferred to reclining chair in room. All needs met. Sitter at side. Education OT Patient Education: Correct positioning, Exercise program, Modified ADL techniques, Progress toward Goal/Update tx plan, Purpose of tx/functional activities, Reviewed precautions, Rehab process, Transfer techniques Teaching Recipient: Patient Teaching Methods: Demonstration, Discussion Response to Teaching: Verbalize Understanding, Return Demonstration, Reinforcement Needed OT Blueprint Clerk Goals Correction Goals Time Frame: May 31, 2020 Eating (QC): 6 Oral Hygiene (QC): 6 Toileting Hygiene (QC): 6 Shower/Bathe Self (QC): 6 Upper Body Dressing (QC): 6 Lower Body Dressing (QC): 6 On/Off Footwear (QC): 6 1=Demonstrate adherence to instructed precautions during ADL tasks. 2=Patient will verbalize/demonstrate understanding of assistive saúl melvina/modifications for ADL. 3=Patient will improve strength/tolerance for activity to enable patient to perform ADL's. OT Education/Plan Problem List/Assessment Assessment: Decreased Activ Tolerance, Impaired Cognition, Impaired Funct Balance, Impaired I ADL's, Impaired Self-Care Skills Discharge Recommendations Plan/Recommendations: Continue POC Therapy Discharge Recommendati: Post Acute OT Treatment Plan/Plan of Care Treatment,Training & Education: Yes Patient would benefit from OT for education, treatment and training to promote independence in ADL's, mobility, safety and/or upper extremity function for ADL's. Plan of Care: ADL Retraining, Functional Mobility, UE Funct Exercise/Act, UE Neuromus Re-Ed/Coord Treatment Duration: May 31, 2020 Frequency: 5 times per week Estimated Hrs Per Day: .25 hour per day Agreement: Yes Rehab Potential: Fair Time/GCodes Start Time: 08:40 Stop Time: 09:10 Total Time Billed (hr/min): 30 Billed Treatment Time 1, ADL x 15minutes, FA x 15minutes AQUILINO LEMA OT May 20, 2020 09:44
--- NOTE | 2020-05-20 09:57 | Physical Therapy Daily Note ---
PT Daily Note-Current Subjective Patient is in recliner with sitter and telesitter present. Mental Status Patient Orientation: Person, Time, Situation Transfers SCALE: Activities may be completed with or without assistive devices. 1-Olmxsolvdw-twqgnca completes the activity by him/herself with no assistance from a helper. 5-Set-up or Clean-up Assistance-helper sets up or cleans up; patient completes activity. [place] assists only prior to or following the activity. 4-Supervision or Touching Assistance-helper provides verbal cues and/or touching/steadying and/or contact guard assistance as patient completes activity. Assistance may be provided throughout the activity or intermittently. 3-Partial/Moderate Assistance-helper does LESS THAN HALF the effort. [place] lifts, holds or supports trunk or limbs, but provides less than half the effort. 2-Substantial/Maximal Assistance-helper does MORE THAN HALF the effort. [place] lifts or holds trunk or limbs and provides more than half the effort. 2-Npxctcotb-wcuyzd does ALL the effort. Patient does none of the effort to complete the activity. Or, the assistance of 2 or more helpers is required for the patient to complete the activity. If activity was not attempted, code reason: 7-Patient Refused. 9-Not Applicable-not attempted and the patient did not perform the activity before the current illness, exacerbation or injury. 10-Not Attempted due to Environmental Limitations-(lack of equipment, weather restraints, etc.). 88-Not Attempted due to Medical Conditions or Safety Concerns. Sit to Stand (QC): 3 Gait Training Does the Patient Walk?: Yes Distance: 400' Walk 10 feet (QC): 3 Walk 50 ft with 2 Turns(QC): 3 Walk 150 ft (QC): 3 Gait Assistive Device: None does require FWW for safety and balance Stair Training Stair Training: Handrails/: 1 handrail #of Steps: 4 1 Step (curb) (QC): 3 4 Steps (QC): 3 12 Steps (QC): 88 Stairs: Pattern: Step to Assessment Patient continues to require minimal assist for balance and safety. Multiple episodes of LOB with PT correct without AD. Implement FWW for safety. PT Group Home Goals Group Home Goals PT Parts Counter Sales Person Goals Time Frame: May 24, 2020 Roll Left & Right (QC): 4 Sit to Lying (QC): 3 Lying-Sitting on Side/Bed(QC): 3 Sit to Stand (QC): 3 Chair/Xaw-bp-Fjpxo Xfer(QC): 3 Walk 10 feet (QC): 3 Wheel 50 feet with 2 turns (QC: 4 Wheel 150 feet: 4 PT Plan Treatment/Plan Treatment Plan: Continue Plan of Care Treatment Plan: Bed Mobility, Education, Functional Activity Ivan, Functional Strength, Gait, Safety, Therapeutic Exercise, Transfers Treatment Duration: May 31, 2020 Frequency: 6 times per week Estimated Hrs Per Day: .25 hour per day Patient and/or Family Agrees t: Yes Discharge Recommendations Therapy Discharge Recommendati: Other, See Comments (ARU) Time/GCodes Time In: 915 Time Out: 926 Total Billed Treatment Time: 11 Total Billed Treatment 1 visit FA 11 min AUSTIN LOVELL PT May 20, 2020 09:57
--- NOTE | 2020-05-20 11:33 | Progress Note - Hospitalist ---
Subjective HPI/CC On Admission Date Seen by Provider: May 20, 2020 Time Seen by Provider: 11:28 Keenan Van is an 85-year-old male with past medical history of hypertension, diabetes, GERD, hyperlipidemia, BPH, iron deficiency anemia, who presented with altered mental status. He had been in the emergency room on 05/13 and evaluated for confusion. Due to his clinical condition, he is unable to provide any history. I spoke with his and daughter in the waiting room. His states that 2 days ago in the morning he was confused. He was evaluated at that time in the emergency room. His workup revealed no lab abnormalities and his CT head was without acute abnormalities. He was not found to have any focal neurologic deficits. He was discharged back home. The following day he returned to the emergency room with decreased level of responsiveness. He had been given Ativan the day before for his CT scan and there was concern that this was causing his altered level of consciousness. A repeat head CT was performed and again showed no acute abnormalities. Overnight he has been febrile and had a cough. He is responsive only to painful stimuli. Subjective/Events-last exam Pt reports doing well today. No complaints. Discussed plan for rehab and he is very agreeable and would like to go as soon as possible. Objective Exam Vital Signs Vital Signs Date Time Temp Pulse Resp B/P (MAP) Pulse Ox O2 Delivery O2 Flow Rate FiO2 05/20/20 08:07 36.2 65 17 178/82 (114) 94 Room Air 05/18/20 04:50 3.00 Capillary Refill : Less Than 3 SecondsLess Than 3 Seconds General Appearance: No Apparent Distress, Cachetic Respiratory: Lungs Clear, No Respiratory Distress Cardiovascular: Regular Rate, Rhythm, No Murmur Neurologic/Psychiatric: Alert, Oriented x3 Results/Procedures Lab Laboratory Tests 05/20/20 05:51 Patient resulted labs reviewed. Imaging: Reviewed Imaging Report Assessment/Plan Assessment and Plan Assess & Plan/Chief Complaint Klebsiella pneumoniae bacteremia Multifocal pneumonia Advanced age Poor prognosis Palliative care consulted, appreciate assistance Continue Omnicef will need rehabilitation on discharge- appears to be an adequate candidate for IRU Delirium reorient as needed Avoid delirium triggers severe protein calorie malnutrition Dietary consult Ensure Hypokalemia Hypomagnesemia Hypophosphatemia Continue to monitor and replace as needed T2DM sliding scale insulin HTN HLD GERD BPH resume home meds DVT prophylaxis: Lovenox Sepsis, resolved Septic encephalopathy, resolved Clinical Quality Measures DVT/VTE Risk/Contraindication: Risk Factor Score Per Nursin RFS Level Per Nursing on Admit: 4+=Very High LEA CURIEL MD May 20, 2020 11:33
--- NOTE | 2020-05-20 11:58 | NUR ---
IRF Evaluation Determination: Accepted Chart review complete and findings discussed with Dr. Solo - patient accepted. Dr. Parnell notified. Patient's primary insurance provider is [facility]; therefore, prior authorization will need to be obtained. Due to this insurance provider historically and consistently denying requests, Dr. Parnell prepared to complete gfog-ib-yhvd, if necessary. Will meet with patient to discuss details associated with program and Fast Appeal process. Thank you for this referral.
--- NOTE | 2020-05-20 14:05 | NUR ---
Palliative Care RN in to see patient. Family is present. I spoke with the son about needs even at discharge from REHAB, including ....he does not want the patient to drive any more....he is afraid his mother will not understand that .. He would like meals on wheels and possibly a paid care give to assist them with house hold stuff and maybe running errands. I explained that the SW on Rehab would certainly help with all thos concerns once he is ready for discharge from IRF. Son is concerned that if patient has to go to a SNF at discharge from IRF then his mother will need caregiving in the home.
[2020-05-20] MEDS: GABAPENTIN 100 MG (NEURONTIN) CAP PO SCH (20:20)
[2020-05-20] MEDS: ACETAMINOPHEN 325 MG TABLET PO PRN (22:58)
[2020-05-21] VITALS (8 sets, daily range): BP systolic 132–181; BP diastolic 60–81
[2020-05-21] MEDS: inSUlin ASPART (NovoLOG) 1 UNIT/0.01 ML (CHARGE PER UNIT) SC SCH ×4 (00:25→19:27)
[2020-05-21 05:40] LABS: CHLORIDE 100 MMOL/L (98-107); POTASSIUM 4.1 MMOL/L (3.6-5.0)
[2020-05-21 05:41] LABS: SODIUM 137 MMOL/L (135-145)
[2020-05-21 05:42] LABS: CALCIUM 8.8 MG/DL (8.5-10.1); GLUCOSE 182 MG/DL (70-105)
[2020-05-21 05:44] LABS: CARBON DIOXIDE 27 MMOL/L (21-32)
[2020-05-21 05:46] LABS: GFR ESTIMATED > 60; PHOSPHORUS 2.8 MG/DL (2.3-4.7)
[2020-05-21 05:47] LABS: BUN/CREATININE RATIO 29
[2020-05-21 05:49] LABS: MAGNESIUM 1.6 MG/DL (1.6-2.4)
[2020-05-21] MEDS: ACETAMINOPHEN 325 MG TABLET PO PRN (06:45)
[2020-05-21] MEDS: ASPIRIN E.C. 81 MG (ECOTRIN) TAB PO SCH (08:53)
[2020-05-21] MEDS: CEFDINIR 300 MG (OMNICEF) CAP PO SCH ×2 (08:53→19:57)
[2020-05-21] MEDS: lisINopril 40 MG (PRINIVIL) TABLET PO SCH (08:53)
[2020-05-21] MEDS: ENOXAPARIN 30 MG/0.3 ML (LOVENOX) SYR SC SCH (08:54)
[2020-05-21] MEDS: amLODIPine 5 MG (NORVASC) TAB PO SCH (08:54)
[2020-05-21] MEDS: meTOproloL SUCCINATE 50 MG (TOPROL XL) TAB PO SCH (08:54)
[2020-05-21] MEDS ORDERED: METO100T12 PO (11:47)
[2020-05-21] MEDS ORDERED: ACET-2267 PO (11:47)
[2020-05-21] MEDS ORDERED: POTA10TA36 PO (11:47)
[2020-05-21] MEDS ORDERED: PANT40TA52 PO (11:47)
[2020-05-21] MEDS ORDERED: SAW/1TAB2 PO (11:47)
--- NOTE | 2020-05-21 11:48 | NUR ---
SPOKE WITH THE PTS AND DAUGHTER TO COMPLETE THE MED REC. FAMILY WAS ABLE TO GO OVER ALL THE PTS MEDICATIONS WELL WHEN/HOW HE TAKES EACH GABAPENTIN 100MG- DIRECTIONS SHOW 1 TAB BID HOWEVER PT IS JUST TAKING 1 TAB HS- LAST FILLED 03-13-2020 #180 OTC MEDS: ASPIRIN 81 TYLENOL PROSTATE [facility]
--- NOTE | 2020-05-21 13:32 | Physical Therapy Daily Note ---
PT Daily Note-Current Subjective Patient agrees to PT. Sitter present. Mask placed on patient upon entry. Mental Status Patient Orientation: Person, Time, Situation Transfers SCALE: Activities may be completed with or without assistive devices. 9-Byojiklduk-vgjzhbn completes the activity by him/herself with no assistance from a helper. 5-Set-up or Clean-up Assistance-helper sets up or cleans up; patient completes activity. [place] assists only prior to or following the activity. 4-Supervision or Touching Assistance-helper provides verbal cues and/or touching/steadying and/or contact guard assistance as patient completes activity. Assistance may be provided throughout the activity or intermittently. 3-Partial/Moderate Assistance-helper does LESS THAN HALF the effort. [place] lifts, holds or supports trunk or limbs, but provides less than half the effort. 2-Substantial/Maximal Assistance-helper does MORE THAN HALF the effort. [place] lifts or holds trunk or limbs and provides more than half the effort. 1-Emhznjqrs-hvvxaa does ALL the effort. Patient does none of the effort to complete the activity. Or, the assistance of 2 or more helpers is required for the patient to complete the activity. If activity was not attempted, code reason: 7-Patient Refused. 9-Not Applicable-not attempted and the patient did not perform the activity before the current illness, exacerbation or injury. 10-Not Attempted due to Environmental Limitations-(lack of equipment, weather restraints, etc.). 88-Not Attempted due to Medical Conditions or Safety Concerns. Roll Left & Right (QC): 6 Sit to Lying (QC): 6 Lying to Sitting/Side of Bed(Q: 6 Sit to Stand (QC): 5 Chair/Ane-oz-Tjylc Xfer(QC): 5 Gait Training Does the Patient Walk?: Yes Distance: 800' Walk 10 feet (QC): 5 Walk 50 ft with 2 Turns(QC): 5 Walk 150 ft (QC): 5 Gait Assistive Device: FWW extended UE's with FWW use with correct with VC's/rapid pace Assessment Patient sitting in recliner with needs met. Patient appears to have diminished safety awareness and continues to ambulate at a rapid pace. PT Fpc Goals Fpc Goals PT Fpc Goals Time Frame: May 24, 2020 Roll Left & Right (QC): 4 Sit to Lying (QC): 3 Lying-Sitting on Side/Bed(QC): 3 Sit to Stand (QC): 3 Chair/Obt-sp-Lzujt Xfer(QC): 3 Walk 10 feet (QC): 3 Wheel 50 feet with 2 turns (QC: 4 Wheel 150 feet: 4 PT Plan Treatment/Plan Treatment Plan: Continue Plan of Care Treatment Plan: Bed Mobility, Education, Functional Activity Ivan, Functional Strength, Gait, Safety, Therapeutic Exercise, Transfers Treatment Duration: May 31, 2020 Frequency: 6 times per week Estimated Hrs Per Day: .25 hour per day Patient and/or Family Agrees t: Yes Time/GCodes Time In: 1310 Time Out: 1321 Total Billed Treatment Time: 11 Total Billed Treatment 1 visit FA 11 min AUSTIN LOVELL PT May 21, 2020 13:32
--- NOTE | 2020-05-21 13:50 | Occupational Ther Daily Note ---
OT Current Status-Daily Note Subjective Pt seated in recliner, sitter present. Pt agreeable to OT Tx. ADL-Treatment Therapy Code Descriptions/Definitions Functional [place] Measure: 0=Not Assessed/NA 4=Minimal Assistance 1=Total Assistance 5=Supervision or Setup 2=Maximal Assistance 6=Modified [place] 3=Moderate Assistance 7=Complete IndependenceSCALE: Activities may be completed with or without assistive devices. 1-Dqzmmbrhzc-zepyert completes the activity by him/herself with no assistance from a helper. 5-Set-up or Clean-up Assistance-helper sets up or cleans up; patient completes activity. [place] assists only prior to or following the activity. 4-Supervision or Touching Assistance-helper provides verbal cues and/or touchin g/steadying and/or contact guard assistance as patient completes activity. Assistance may be provided throughout the activity or intermittently. 3-Partial/Moderate Assistance-helper does LESS THAN HALF the effort. [place] lifts, holds or supports trunk or limbs, but provides less than half the effort. 2-Substantial/Maximal Assistance-helper does MORE THAN HALF the effort. [place] lifts or holds trunk or limbs and provides more than half the effort. 1-Jphsmwfqp-gkxwjr does ALL the effort. Patient does none of the effort to complete the activity. Or, the assistance of 2 or more helpers is required for the patient to complete the activity. If activity was not attempted, code reason: 7-Patient Refused. 9-Not Applicable-not attempted and the patient did not perform the activity before the current illness, exacerbation or injury. 10-Not Attempted due to Environmental Limitations-(lack of equipment, weather restraints, etc.). 88-Not Attempted due to Medical Conditions or Safety Concerns. Eating (QC): 6 (Pt independent with eating pudding and ice cream. Pt indicates he was able to cut food at lunch without difficulty.) Other Treatment Pt seated in recliner post PT tx, pt eating pudding, peaches and ice cream. OT o bserved pt feeding, no difficulties noted. Pt indicates he was able to eat lunch without difficulty, and he was able to cut his food. Pt declined toileting, further ADLs, or transferring to bed at this time. OT educated pt on OT POC to increase strength/endurance and independence with ADLS to maximize LOF, pt verbalized understanding. Pt stated he would like to sit and eat his food. Post OT tx, pt seated in recliner, call light in reach and all needs met, sitter present. Education OT Patient Education: Correct positioning, Modified ADL techniques, Progress toward Goal/Update tx plan, Purpose of tx/functional activities Teaching Recipient: Patient Teaching Methods: Discussion Response to Teaching: Verbalize Understanding OT Lathe Spotter Goals Care Home Goals Time Frame: May 31, 2020 Eating (QC): 6 Oral Hygiene (QC): 6 Toileting Hygiene (QC): 6 Shower/Bathe Self (QC): 6 Upper Body Dressing (QC): 6 Lower Body Dressing (QC): 6 On/Off Footwear (QC): 6 1=Demonstrate adherence to instructed precautions during ADL tasks. 2=Patient will verbalize/demonstrate understanding of assistive devices/modifications for ADL. 3=Patient will improve strength/tolerance for activity to enable patient to perform ADL's. OT Education/Plan Problem List/Assessment Assessment: Decreased Activ Tolerance, Decreased UE Strength, Impaired I ADL's, Impaired Self-Care Skills Discharge Recommendations Plan/Recommendations: Continue POC Treatment Plan/Plan of Care Patient would benefit from OT for education, treatment and training to promote independence in ADL's, mobility, safety and/or upper extremity function for ADL's. Plan of Care: ADL Retraining, Functional Mobility, UE Funct Exercise/Act, UE Neuromus Re-Ed/Coord Treatment Duration: May 31, 2020 Frequency: 5 times per week Estimated Hrs Per Day: .25 hour per day Agreement: Yes Rehab Potential: Fair Time/GCodes Start Time: 13:22 Stop Time: 13:30 Total Time Billed (hr/min): 8 Billed Treatment Time 1, ADL JYOTI GASPAR OT May 21, 2020 13:50
--- NOTE | 2020-05-21 18:33 | Progress Note - Hospitalist ---
Subjective HPI/CC On Admission Date Seen by Provider: May 21, 2020 Time Seen by Provider: 18:28 Keenan Van is an 85-year-old male with past medical history of hypertension, diabetes, GERD, hyperlipidemia, BPH, iron deficiency anemia, who presented with altered mental status. He had been in the emergency room on 05/13 and evaluated for confusion. Due to his clinical condition, he is unable to provide any history. I spoke with his and daughter in the waiting room. His states that 2 days ago in the morning he was confused. He was evaluated at that time in the emergency room. His workup revealed no lab abnormalities and his CT head was without acute abnormalities. He was not found to have any focal neurologic deficits. He was discharged back home. The following day he returned to the emergency room with decreased level of responsiveness. He had been given Ativan the day before for his CT scan and there was concern that this was causing his altered level of consciousness. A repeat head CT was performed and again showed no acute abnormalities. Overnight he has been febrile and had a cough. He is responsive only to painful stimuli. Subjective/Events-last exam Pt reports doing well today. No complaints. Ready to go to rehab if able. Informed him we are waiting on insurance. Objective Exam Vital Signs Vital Signs Date Time Temp Pulse Resp B/P (MAP) Pulse Ox O2 Delivery O2 Flow Rate FiO2 05/21/20 16:50 36.9 71 16 141/66 (91) 94 Room Air 05/18/20 04:50 3.00 Capillary Refill : Less Than 3 SecondsLess Than 3 Seconds General Appearance: No Apparent Distress, Chronically ill, Thin Respiratory: Lungs Clear, No Respiratory Distress Cardiovascular: Regular Rate, Rhythm, No Murmur Neurologic/Psychiatric: Alert, Oriented x3 Results/Procedures Lab Laboratory Tests 05/21/20 04:50 Patient resulted labs reviewed. Imaging: Reviewed Imaging Report Assessment/Plan Assessment and Plan Assess & Plan/Chief Complaint Klebsiella pneumoniae bacteremia Multifocal pneumonia Advanced age Poor prognosis Palliative care consulted, appreciate assistance Continue Omnicef will need rehabilitation on discharge- appears to be an adequate candidate for IRU -awaiting insurance approval for IRU Delirium reorient as needed Avoid delirium triggers severe protein calorie malnutrition Dietary consult Ensure Hypokalemia Hypomagnesemia Hypophosphatemia Continue to monitor and replace as needed T2DM sliding scale insulin HTN HLD GERD BPH resume home meds DVT prophylaxis: Lovenox Sepsis, resolved Septic encephalopathy, resolved Clinical Quality Measures DVT/VTE Risk/Contraindication: Risk Factor Score Per Nursin RFS Level Per Nursing on Admit: 4+=Very High LEA CURIEL MD May 21, 2020 18:33
[2020-05-21] MEDS: GABAPENTIN 100 MG (NEURONTIN) CAP PO SCH (19:57)
[2020-05-22 00:18] VITALS: BP 156/71
[2020-05-22] MEDS: inSUlin ASPART (NovoLOG) 1 UNIT/0.01 ML (CHARGE PER UNIT) SC SCH ×4 (00:48→18:14)
[2020-05-22] MEDS: ACETAMINOPHEN 325 MG TABLET PO PRN ×2 (02:20→23:27)
[2020-05-22 04:28] VITALS: BP 145/71
[2020-05-22 05:19] LABS: CHLORIDE 100 MMOL/L (98-107); POTASSIUM 4.2 MMOL/L (3.6-5.0); SODIUM 138 MMOL/L (135-145)
[2020-05-22 05:21] LABS: CALCIUM 8.7 MG/DL (8.5-10.1); GLUCOSE 176 MG/DL (70-105)
[2020-05-22 05:23] LABS: CARBON DIOXIDE 27 MMOL/L (21-32)
[2020-05-22 05:25] LABS: CREATININE SERUM 1.13 MG/DL (0.60-1.30); GFR ESTIMATED > 60; PHOSPHORUS 2.8 MG/DL (2.3-4.7)
[2020-05-22 05:26] LABS: BUN/CREATININE RATIO 25
[2020-05-22 05:27] LABS: MAGNESIUM 1.5 MG/DL (1.6-2.4)
[2020-05-22 07:14] VITALS: BP 131/53
[2020-05-22] MEDS: ASPIRIN E.C. 81 MG (ECOTRIN) TAB PO SCH (09:16)
[2020-05-22] MEDS: lisINopril 40 MG (PRINIVIL) TABLET PO SCH (09:16)
[2020-05-22] MEDS: ENOXAPARIN 30 MG/0.3 ML (LOVENOX) SYR SC SCH (09:16)
[2020-05-22] MEDS: amLODIPine 5 MG (NORVASC) TAB PO SCH (09:16)
[2020-05-22] MEDS: meTOproloL SUCCINATE 50 MG (TOPROL XL) TAB PO SCH (09:16)
[2020-05-22] MEDS: CEFDINIR 300 MG (OMNICEF) CAP PO SCH ×2 (09:16→20:57)
[2020-05-22 11:08] VITALS: BP 157/74
--- NOTE | 2020-05-22 11:19 | Physical Therapy Daily Note ---
PT Daily Note-Current Subjective Pt agreeable to therapy. Pt denies pain. Pt states he is ready to go home. Mental Status Patient Orientation: Person, Place, Situation Transfers SCALE: Activities may be completed with or without assistive devices. 6-Jikssdnawc-rjengrv completes the activity by him/herself with no assistance from a helper. 5-Set-up or Clean-up Assistance-helper sets up or cleans up; patient completes activity. [place] assists only prior to or following the activity. 4-Supervision or Touching Assistance-helper provides verbal cues and/or touching/steadying and/or contact guard assistance as patient completes activity. Assistance may be provided throughout the activity or intermittently. 3-Partial/Moderate Assistance-helper does LESS THAN HALF the effort. [place] lifts, holds or supports trunk or limbs, but provides less than half the effort. 2-Substantial/Maximal Assistance-helper does MORE THAN HALF the effort. [place] lifts or holds trunk or limbs and provides more than half the effort. 6-Ikigmphxl-ugcitc does ALL the effort. Patient does none of the effort to complete the activity. Or, the assistance of 2 or more helpers is required for the patient to complete the activity. If activity was not attempted, code reason: 7-Patient Refused. 9-Not Applicable-not attempted and the patient did not perform the activity before the current illness, exacerbation or injury. 10-Not Attempted due to Environmental Limitations-(lack of equipment, weather restraints, etc.). 88-Not Attempted due to Medical Conditions or Safety Concerns. Pt bed mobility and transfers were mod (I) all levels. Exercises Seated Therapy Exercises: Long arc quads, Hip flexion Seated Reps: 20 Treatments Pt amb with FWW and CGA-SBA x 500(+) ft. Pt amb at good speed, good stride length with FWW. No unsteadiness noted. Assessment Current Status: Excellent Progress Pt kobe above very well with no signs of fatigue. Pt back to bed with call light and all needs met. Ambu alarm activated. PT Gis Manager Goals Gis Manager Goals PT Gis Manager Goals Time Frame: May 24, 2020 Roll Left & Right (QC): 4 Sit to Lying (QC): 3 Lying-Sitting on Side/Bed(QC): 3 Sit to Stand (QC): 3 Chair/Oui-cx-Uvxlz Xfer(QC): 3 Walk 10 feet (QC): 3 Wheel 50 feet with 2 turns (QC: 4 Wheel 150 feet: 4 PT Plan Treatment/Plan Treatment Plan: Continue Plan of Care Treatment Plan: Bed Mobility, Education, Functional Activity Ivan, Functional Strength, Gait, Safety, Therapeutic Exercise, Transfers Treatment Duration: May 31, 2020 Frequency: 6 times per week Estimated Hrs Per Day: .25 hour per day Patient and/or Family Agrees t: Yes Time/GCodes Time In: 930 Time Out: 950 Total Billed Treatment Time: 20 Total Billed Treatment 1, gait x 15', ther ex 5' ROSA COYNE CPTA May 22, 2020 11:19
--- NOTE | 2020-05-22 11:21 | NUR ---
IRF Follow up in regard to patient's progress with therapies. According to PT Progress Note, patient is ambulating (800ft, FWW) and transferring with setup, as well as completing bed mobility with independence; therefore, patient not longer meets criteria for admission to Acute Rehab. Dr. Parnell notified. Will cancel insurance authorization with [employer]
--- NOTE | 2020-05-22 12:42 | Progress Note - Hospitalist ---
ALYSSA CORDERO MED STUDENT 05/22/20 1241: Subjective HPI/CC On Admission Keenan Van is an 85-year-old male with past medical history of hypertension, diabetes, GERD, hyperlipidemia, BPH, iron deficiency anemia, who presented with altered mental status. He had been in the emergency room on 05/13 and evaluated for confusion. Due to his clinical condition, he is unable to provide any history. I spoke with his and daughter in the waiting room. His states that 2 days ago in the morning he was confused. He was evaluated at that time in the emergency room. His workup revealed no lab abnormalities and his CT head was without acute abnormalities. He was not found to have any focal neurologic deficits. He was discharged back home. The following day he returned to the emergency room with decreased level of responsiveness. He had been given Ativan the day before for his CT scan and there was concern that this was causing his altered level of consciousness. A repeat head CT was performed and again showed no acute abnormalities. Overnight he has been febrile and had a cough. He is responsive only to painful stimuli. Subjective/Events-last exam Pt doing well, no complaints. Denies pain or SOB. Eating breakfast on exam. Awaiting insurance approval for inpatient rehab. Objective Exam Vital Signs Vital Signs Date Time Temp Pulse Resp B/P (MAP) Pulse Ox O2 Delivery O2 Flow Rate FiO2 05/22/20 11:08 36.4 71 18 157/74 (101) 96 Room Air 05/18/20 04:50 3.00 Capillary Refill : Less Than 3 SecondsLess Than 3 Seconds General Appearance: No Apparent Distress, Thin HEENT: PERRL/EOMI, Normal ENT Inspection Neck: Normal Inspection, Supple Respiratory: Normal Breath Sounds, No Accessory Muscle Use, No Respiratory Distress Cardiovascular: Regular Rate, Rhythm, No Murmur Gastrointestinal: Non Tender; No Distended Extremity: Normal Inspection, No Pedal Edema Neurologic/Psychiatric: Alert, Normal Mood/Affect Skin: Normal Color, Warm/Dry Lymphatic: No Adenopathy Results/Procedures Lab Laboratory Tests 05/22/20 04:40 Patient resulted labs reviewed. Imaging: Reviewed Imaging Report Assessment/Plan Assessment and Plan Assess & Plan/Chief Complaint Klebsiella pneumoniae bacteremia Multifocal pneumonia Type 2 DM Hypomagnesemia Leukocytosis-improved thrombocytopenia palliative care consulted Lovenox for DVT prophylaxis Insulin for T2DM Continue Omnicef monitor labs, replete as needed PT/OT eval plan for rehab, insurance approval pending Clinical Quality Measures DVT/VTE Risk/Contraindication: Risk Factor Score Per Nursin RFS Level Per Nursing on Admit: 4+=Very High GRACE NOEL DO 05/22/208: Subjective HPI/CC On Admission Date Seen by Provider: May 22, 2020 Time Seen by Provider: 10:00 Subjective/Events-last exam Pt doing pretty well Altered mental status now resolved Palliative care consult initiated but now he is better Inpatient rehab denied admission because he is doing so well Will DC on home health tomorrow Review of Systems General: Fatigue, Malaise Objective Exam General Appearance: No Apparent Distress, WD/WN Respiratory: Lungs Clear Cardiovascular: Regular Rate, Rhythm Supervisory-Addendum Brief Verification & Attestation Participated in pt care: history, MDM, physical Personally performed: exam, history, MDM, supervision of care Care discussed with: Medical Student Procedures: n/a Results interpretation: Verified all documentation Verification and Attestation of Medical Student E/M Service A medical student performed and documented this service in my presence. I reviewed and verified all information documented by the medical student and made modifications to such information, when appropriate. I personally performed the physical exam and medical decision making. Grace Noel, May 22, 2020,21:48 ALYSSA CORDERO MED STUDENT May 22, 2020 12:41 RGACE NOEL DO May 22, 2020 21:48
--- NOTE | 2020-05-22 13:36 | NUR ---
PALLIATIVE CARE RN in to see patient. No family present r/t no visitors being allowed at this time. Patient was laying in bed, alert and saying he needed to go to the restroom. I assisted him to the bathroom where he was able to walk using the walker and set himself down on the toilet. He urinated and did not have a BM, even though he smelled as if he were. Patient used call light for assist when done and then attempted to get to sink to wash hands, needed to remind him of the walker, he turned and righted himself in it. He then picked the walker up and walked with it to the chair. Feet up and call light within reach. Will call his and son.
--- NOTE | 2020-05-22 14:32 | Occupational Ther Daily Note ---
OT Current Status-Daily Note Subjective Pt seated in recliner, agreeable to OT Tx. Pt did not verbalize any pain during tx, but indicates his left shoulder hurt earlier today. ADL-Treatment Therapy Code Descriptions/Definitions Functional [place] Measure: 0=Not Assessed/NA 4=Minimal Assistance 1=Total Assistance 5=Supervision or Setup 2=Maximal Assistance 6=Modified [place] 3=Moderate Assistance 7=Complete IndependenceSCALE: Activities may be completed with or without assistive devices. 2-Yuakysidlq-pmulhtg completes the activity by him/herself with no assistance from a helper. 5-Set-up or Clean-up Assistance-helper sets up or cleans up; patient completes activity. [place] assists only prior to or following the activity. 4-Supervision or Touching Assistance-helper provides verbal cues and/or touching/steadying and/or contact guard assistance as patient completes activity. Assistance may be provided throughout the activity or intermittently. 3-Partial/Moderate Assistance-helper does LESS THAN HALF the effort. [place] lifts, holds or supports trunk or limbs, but provides less than half the effort. 2-Substantial/Maximal Assistance-helper does MORE THAN HALF the effort. [place] lifts or holds trunk or limbs and provides more than half the effort. 6-Cmgdffrrg-xtffsg does ALL the effort. Patient does none of the effort to complete the activity. Or, the assistance of 2 or more helpers is required for the patient to complete the activity. If activity was not attempted, code reason: 7-Patient Refused. 9-Not Applicable-not attempted and the patient did not perform the activity before the current illness, exacerbation or injury. 10-Not Attempted due to Environmental Limitations-(lack of equipment, weather restraints, etc.). 88-Not Attempted due to Medical Conditions or Safety Concerns. Other Treatment Pt seated in recliner, OT introduced self. Pt agreeable to OT tx with focus on UE exercises. Pt declines bathing/dressing/oral care stating he completed these tasks earlier today. In order to increase BUE strength and functional endurance, pt complete x20 reps BUE of the following exercises: elbow flexion/extension, wrist flexion/extension, and finger flexion/extension with rest breaks as needed between exercises. Shoulder exercises not performed due to decreased ROM at the shoulder, pt demo'd ability to perform BUE shoulder flexion to approx 30 degrees. OT educated pt on the importance of exercise, instructing pt to complete throughout the day, he verbalized understanding. Post OT Tx, pt seated in recliner, call light in reach and all needs met. Education OT Patient Education: Correct positioning, Exercise program, Modified ADL techniques, Progress toward Goal/Update tx plan, Purpose of tx/functional activities Teaching Recipient: Patient Teaching Methods: Discussion Response to Teaching: Verbalize Understanding OT Senior Care Goals Senior Care Goals Time Frame: May 31, 2020 Eating (QC): 6 Oral Hygiene (QC): 6 Toileting Hygiene (QC): 6 Shower/Bathe Self (QC): 6 Upper Body Dressing (QC): 6 Lower Body Dressing (QC): 6 On/Off Footwear (QC): 6 1=Demonstrate adherence to instructed precautions during ADL tasks. 2=Patient will verbalize/demonstrate understanding of assistive devices/ modifications for ADL. 3=Patient will improve strength/tolerance for activity to enable patient to perform ADL's. OT Education/Plan Problem List/Assessment Assessment: Decreased Activ Tolerance, Decreased UE Strength, Restricted Funct UE ROM Discharge Recommendations Plan/Recommendations: Continue POC Treatment Plan/Plan of Care Patient would benefit from OT for education, treatment and training to promote independence in ADL's, mobility, safety and/or upper extremity function for ADL's. Plan of Care: ADL Retraining, Functional Mobility, UE Funct Exercise/Act, UE Neuromus Re-Ed/Coord Treatment Duration: May 31, 2020 Frequency: 5 times per week Estimated Hrs Per Day: .25 hour per day Agreement: Yes Rehab Potential: Fair Time/GCodes Start Time: 14:00 Stop Time: 14:10 Total Time Billed (hr/min): 10 Billed Treatment Time 1, EX JYOTI GASPAR OT May 22, 2020 14:32
[2020-05-22 16:00] VITALS: BP 162/76
[2020-05-22] MEDS ORDERED: FLU QUADRIvalent (3YOA+) 60 mcg/0.5 ml 2020-21 (AFLURIA) IM ONE (18:45)
[2020-05-22] MEDS ORDERED: FLU QUAD HIGH DOSE 240 MCG/0.7 ML 2020-21 (FLUZONE) IM ONE (19:00)
[2020-05-22 20:00] VITALS: BP 145/57
[2020-05-22] MEDS: GABAPENTIN 100 MG (NEURONTIN) CAP PO SCH (20:57)
[2020-05-23] VITALS: BP 145/78
[2020-05-23] MEDS: inSUlin ASPART (NovoLOG) 1 UNIT/0.01 ML (CHARGE PER UNIT) SC SCH ×3 (00:51→11:52)
[2020-05-23 05:39] LABS: CHLORIDE 99 MMOL/L (98-107); POTASSIUM 4.3 MMOL/L (3.6-5.0); SODIUM 137 MMOL/L (135-145)
[2020-05-23 05:40] LABS: CALCIUM 9.1 MG/DL (8.5-10.1)
[2020-05-23 05:41] LABS: GLUCOSE 151 MG/DL (70-105)
[2020-05-23 05:42] LABS: CARBON DIOXIDE 28 MMOL/L (21-32)
[2020-05-23 05:44] LABS: PHOSPHORUS 3.2 MG/DL (2.3-4.7)
[2020-05-23 05:45] LABS: BUN/CREATININE RATIO 28; CREATININE SERUM 1.05 MG/DL (0.60-1.30); GFR ESTIMATED > 60
[2020-05-23 05:47] LABS: MAGNESIUM 1.7 MG/DL (1.6-2.4)
--- NOTE | 2020-05-23 06:26 | D/C HH Face to Face Order ---
D/C Face to Face Orders Reconcile Patient Problems Problems Reviewed?: Yes Instructions for Patient [facility] [employer], Patient Instructions/FollowUp: PCP 1 week Physician to follow Patient: PCP Discharge Diet for Home: No Restrictions Patient Problems: Debility Pneumonia Patient Data-Allergies,Ht & Wt Patient Allergies: Coded Allergies: No Known Drug Allergies (Unverified , 09/16/12) Height (Feet): 5 Height (Inches): 5.00 Weight (Pounds): 125 Home Health Need/Face to Face Date of Face to Face: May 23, 2020 Clinical Findings: Generalized weakness and fatigue, Instability, Muscle weakness, Shortness of breath I have seen Pt okxg-md-wvpf: Yes Discharged To: Home Diagnosis/Conditions: PNA Patient is Homebound due to: Eliz fall risk due to instabilty, Muscle weakness Homebound Status Due to the above stated illness, injury or surgical procedure (medical condition or diagnosis) and associated clinical findings, the patient is homebound because of his/her inability to leave home except with aid of a supportive device and/or person AND leaving the home requires a considerable and taxing effort or is medically contraindicated. Pt req the following assistanc: Walker Home Health Nursing Orders Home Health Services Order: Nursing Services, Creative Services Designer-Evaluate & Treat, Physical Therapy-Evaluate & Treat Home Health Infusion Therapy Line Start Date: May 14, 2020 Certify Stmt I certify that this patient is under my care and that I, a nurse practitioner or a physician; a training assistant working with me, had a face to face encounter that - meets the physician face to face encounter requirements with this patient as dated. JOSE ELIAS NOEL DO May 23, 2020 06:26
[2020-05-23 08:00] VITALS: BP 138/67
[2020-05-23] MEDS: amLODIPine 5 MG (NORVASC) TAB PO SCH (08:35)
[2020-05-23] MEDS: CEFDINIR 300 MG (OMNICEF) CAP PO SCH (08:35)
[2020-05-23] MEDS: meTOproloL SUCCINATE 50 MG (TOPROL XL) TAB PO SCH (08:35)
[2020-05-23] MEDS: lisINopril 40 MG (PRINIVIL) TABLET PO SCH (08:35)
[2020-05-23] MEDS: ASPIRIN E.C. 81 MG (ECOTRIN) TAB PO SCH (08:35)
[2020-05-23] MEDS: ENOXAPARIN 30 MG/0.3 ML (LOVENOX) SYR SC SCH (08:35)
[2020-05-23] MEDS: ACETAMINOPHEN 325 MG TABLET PO PRN (10:10)
--- NOTE | 2020-05-23 10:27 | NUR ---
PALLIATIVE CARE RN in to see patient. he is alert and sitting up in bed. He reports pain in his left arm starting at the shoulder and heading down to just above the thumb, denies any pain in his chest. He is still anticipating getting to go home today. Will talk to his nurse and to family. Referral is with [facility] for RN/PT/OT.
[2020-05-23] MEDS ORDERED: CEFD300C3 PO (10:46)
--- NOTE | 2020-05-23 10:46 | Discharge Summary ---
Discharge Summary Hospital Course Problems/Dx: (1) Bacteremia due to Klebsiella pneumoniae Status: Acute (2) Multifocal pneumonia Status: Acute (3) Acute encephalopathy Status: Resolved (4) SIRS (systemic inflammatory response syndrome) Status: Resolved (5) Fever Status: Resolved (6) Leukocytosis Status: Resolved (7) Advanced age Status: Chronic (8) Poor prognosis Status: Acute (9) HTN (hypertension) Status: Chronic (10) T2DM (type 2 diabetes mellitus) Status: Chronic Qualifiers: (11) HLD (hyperlipidemia) Status: Chronic (12) GERD (gastroesophageal reflux disease) Status: Chronic (13) BPH (benign prostatic hyperplasia) Status: Chronic (14) Debility Status: Acute (15) Severe protein-calorie malnutrition Status: Acute Hospital Course Date of Admission: May 14, 2020 at 18:33 Admission Diagnosis : Family Physician/Provider: Keenan Kirkland MD Date of Discharge: 05/23/20 Discharge Diagnosis: AMS, PNA, advanced age Hospital Course: Keenan Van is an 85 YO male with history of HTN and T2DM who was brought to the ED by family for confusion and AMS. Workup was negative, so he was discharged home. However, pt was brought back the next day with continued AMS that family thinks was further aggravated with Ativan given the day prior in the ER when pt was combative in CT. Pt was admitted and found to have multifocal Klebsiella pneumonia and bacteremia, so he was treated with Omnicef. Palliative care was consulted, but pt improved over his hospital course. Plan was to transfer to inpatient rehab, but pt was not a candidate because he had improved with Abx and PT/OT and was able to ambulate on his own with a walker. Pt is agreeable with discharge and has no complaints today other than some intermittent shoulder pain that he thinks is due to him sleeping on it wrong. Will discharge with home health. ALYSSA CORDERO STUDENT Labs and Pending Lab Test: Laboratory Tests 05/22/20 11:22: Glucometer 258H 05/22/20 18:07: Glucometer 116H 05/22/20 23:50: Glucometer 240H 05/23/20 04:45: Sodium Level 137, Potassium Level 4.3, Chloride Level 99, Carbon Dioxide Level 28, Anion Gap 10, Blood Urea Nitrogen 29H, Creatinine 1.05, Estimat Glomerular Filtration Rate > 60, BUN/Creatinine Ratio 28, Glucose Level 151H, Calcium Level 9.1, Phosphorus Level 3.2, Magnesium Level 1.7 Microbiology 05/15/20 Blood Culture - Final, Complete No growth 05/15/20 Influenza Types A,B Antigen (TONA) - Final, Complete 05/14/20 Urine Culture - Final, Complete NO GROWTH Home Meds Active Reported Prostate Health Caplet (Saw/Vit E/Sod Hannah/Lyc/Beta/Pyg) 1 Each Tablet 1 Each PO DAILY Tylenol Extra Strength (Acetaminophen) 500 Mg Tablet 1,000 Mg PO HS PRN Pantoprazole Sodium 40 Mg Tablet.dr 40 Mg PO DAILY Metoprolol Tartrate 100 Mg Tablet 50 Mg PO DAILY TAKES 1/2 OF A 100MG TAB Potassium Chloride 10 Meq Tab.er.prt 10 Meq PO DAILY Gabapentin 100 Mg Capsule 100 Mg PO HS Amlodipine Besylate 5 Mg Tablet 5 Mg PO DAILY Lisinopril 40 Mg Tablet 40 Mg PO DAILY Atorvastatin Calcium 40 Mg Tablet 40 Mg PO DAILY Hydralazine HCl 10 Mg Tablet 10 Mg PO BID Glipizide ER (Glipizide) 2.5 Mg Tab 2.5 Mg PO DAILY Metformin HCl 850 Mg Tablet 850 Mg PO BID Aspirin 81 Mg Tab.chew 81 Mg PO HS Assessment/Pt Instructions Dr Kirkland in 1 week Discharge Planning: <30 minutes discharge planning Discharge Instructions Discharge Diet: No Restrictions Discharge Physical Examination Vital Signs Vital Signs Date Time Temp Pulse Resp B/P (MAP) Pulse Ox O2 Delivery O2 Flow Rate FiO2 05/23/20 08:00 36.2 65 16 138/67 (90) 98 Room Air 05/18/20 04:50 3.00 General Appearance: No Apparent Distress, WD/WN, Chronically ill, Thin Respiratory: Lungs Clear Cardiovascular: Regular Rate, Rhythm Allergies: Coded Allergies: No Known Drug Allergies (Unverified , 09/16/12) Discharge Summary Date of Admission May 14, 2020 at 18:33 Date of Discharge Discharge Date: May 23, 2020 Admission Diagnosis acute encephalopathy Comfort Measures/ End of Life Care: Pallative Care Discharge Diagnosis (1) Bacteremia due to Klebsiella pneumoniae Status: Acute (2) Multifocal pneumonia Status: Acute (3) Acute encephalopathy Status: Resolved (4) SIRS (systemic inflammatory response syndrome) Status: Resolved (5) Fever Status: Resolved (6) Leukocytosis Status: Resolved (7) Advanced age Status: Chronic (8) Poor prognosis Status: Acute (9) HTN (hypertension) Status: Chronic (10) T2DM (type 2 diabetes mellitus) Status: Chronic Qualifiers: (11) HLD (hyperlipidemia) Status: Chronic (12) GERD (gastroesophageal reflux disease) Status: Chronic (13) BPH (benign prostatic hyperplasia) Status: Chronic (14) Debility Status: Acute (15) Severe protein-calorie malnutrition Status: Acute Clinical Quality Measures DVT/VTE Risk/Contraindication: Risk Factor Score Per Nursin RFS Level Per Nursing on Admit: 4+=Very High JOSE ELIAS NOEL DO May 23, 2020 10:46
--- NOTE | 2020-05-23 10:56 | Occupational Ther Daily Note ---
OT Current Status-Daily Note Subjective Pt laying in bed, agreeable to OT tx. Pt reports he is hoping to go home today, and he is having some shoulder pain but he does not provide pain rating. ADL-Treatment Therapy Code Descriptions/Definitions Functional [place] Measure: 0=Not Assessed/NA 4=Minimal Assistance 1=Total Assistance 5=Supervision or Setup 2=Maximal Assistance 6=Modified [place] 3=Moderate Assistance 7=Complete IndependenceSCALE: Activities may be completed with or without assistive devices. 8-Arivfbqoxk-olrghah completes the activity by him/herself with no assistance from a helper. 5-Set-up or Clean-up Assistance-helper sets up or cleans up; patient completes activity. [place] assists only prior to or following the activity. 4-Supervision or Touching Assistance-helper provides verbal cues and/or touching/steadying and/or contact guard assistance as patient completes activity. Assistance may be provided throughout the activity or intermittently. 3-Partial/Moderate Assistance-helper does LESS THAN HALF the effort. [place] lifts, holds or supports trunk or limbs, but provides less than half the effort. 2-Substantial/Maximal Assistance-helper does MORE THAN HALF the effort. [place] lifts or holds trunk or limbs and provides more than half the effort. 2-Itxehfxwn-agvfts does ALL the effort. Patient does none of the effort to complete the activity. Or, the assistance of 2 or more helpers is required for the patient to complete the activity. If activity was not attempted, code reason: 7-Patient Refused. 9-Not Applicable-not attempted and the patient did not perform the activity before the current illness, exacerbation or injury. 10-Not Attempted due to Environmental Limitations-(lack of equipment, weather restraints, etc.). 88-Not Attempted due to Medical Conditions or Safety Concerns. Other Treatment Pt laying in bed. In order to increase BUE strength and functional endurance, pt educated on UE exercises with moderate resistance red theraband. Pt attempted to perform shoulder exercises, but reports increased pain so no further shoulder exercises performed on this date. Pt educated pt on elbow flexion/extension with theraband, pt able to complete x10 reps with R arm and x5 reps with L. Pt requi red hand over hand assistance to perform correct movements. Pt reports understanding of exercises. Therband and HEP sheet left in pt's room, pt educated to perform exercises 2-3 times a day. Post OT tx, pt laying in bed, call light in reach and all needs met. Education OT Patient Education: Correct positioning, Exercise program, Modified ADL techniques, Progress toward Goal/Update tx plan, Purpose of tx/functional activities Teaching Recipient: Patient Teaching Methods: Discussion Response to Teaching: Verbalize Understanding OT Fdc Goals Knowledge Management Consultant Goals Time Frame: May 31, 2020 Eating (QC): 6 Oral Hygiene (QC): 6 Toileting Hygiene (QC): 6 Shower/Bathe Self (QC): 6 Upper Body Dressing (QC): 6 Lower Body Dressing (QC): 6 On/Off Footwear (QC): 6 1=Demonstrate adherence to instructed precautions during ADL tasks. 2=Patient will verbalize/demonstrate understanding of assistive devices/modifications for ADL. 3=Patient will improve strength/tolerance for activity to enable patient to perform ADL's. OT Education/Plan Problem List/Assessment Assessment: Decreased Activ Tolerance, Decreased UE Strength, Impaired I ADL's, Impaired Self-Care Skills, Restricted Funct UE ROM Discharge Recommendations Plan/Recommendations: Continue POC Treatment Plan/Plan of Care Patient would benefit from OT for education, treatment and training to promote independence in ADL's, mobility, safety and/or upper extremity function for ADL's. Plan of Care: ADL Retraining, Functional Mobility, UE Funct Exercise/Act, UE Neuromus Re-Ed/Coord Treatment Duration: May 31, 2020 Frequency: 5 times per week Estimated Hrs Per Day: .25 hour per day Agreement: Yes Rehab Potential: Fair Time/GCodes Start Time: 10:41 Stop Time: 10:49 Total Time Billed (hr/min): 8 Billed Treatment Time 1, EX JYOTI GASPAR OT May 23, 2020 10:56
--- NOTE | 2020-05-23 12:45 | NUR ---
IV DC, SITE WITHOUT REDNESS OR SWELLING, DISCHARGE INSTRUCTIONS GIVEN, VERBALIZED UNDERSTANDING, FLUE VACCINE GIVEN
[2020-05-23 13:00] VITALS: BP 138/67
--- NOTE | 2020-05-23 13:05 | NUR ---
DISMISSED PER W/C, ACCOMPANIED BY STAFF
--- NOTE | 2020-05-23 14:18 | Progress Note ---
ALYSSA CORDERO MED STUDENT 05/23/20 1418: Progress Note Keenan Van is an 85 YO male with history of HTN and T2DM who was brought to the ED by family for confusion and AMS. Workup was negative, so he was discharged home. However, pt was brought back the next day with continued AMS that family thinks was further aggravated with Ativan given the day prior in the ER when pt was combative in CT. Pt was admitted and found to have multifocal Klebsiella pneumonia and bacteremia, so he was treated with Omnicef. Palliative care was consulted, but pt improved over his hospital course. Plan was to transfer to in patient rehab, but pt was not a candidate because he had improved with Abx and PT/OT and was able to ambulate on his own with a walker. Pt is agreeable with discharge and has no complaints today other than some intermittent shoulder pain that he thinks is due to him sleeping on it wrong. Will discharge with home health. GRACE NOEL DO 05/23/20 7135: Supervisory-Addendum Brief Verification & Attestation Participated in pt care: history, MDM, physical Personally performed: exam, history, MDM, supervision of care Care discussed with: Medical Student Procedures: n/a Results interpretation: Verified all documentation Verification and Attestation of Medical Student E/M Service A medical student performed and documented this service in my presence. I reviewed and verified all information documented by the medical student and made modifications to such information, when appropriate. I personally performed the physical exam and medical decision making. Grace Noel, May 23, 2020,22:45 ALYSSA CORDERO MED STUDENT May 23, 2020 14:18 GRACE NOEL DO May 23, 2020 22:45
== END 2020-05-23 13:05 | disposition home health service (06) | DRG 871 ==
LOC: EDUNIT# 15:07 → ER 15:08 → UNDOADMOB 18:33 → 4TH 18:33 → OBSVTOIN 05-16 15:07 → UNDODISOB 05-23 13:05
PROVIDERS: ADMIT Internal Medicine; ATTEND Internal Medicine
DX: A41.59 Other Gram-negative sepsis (principal); G93.41 Metabolic encephalopathy; E43 Unspecified severe protein-calorie malnutrition; J18.9 Pneumonia, unspecified organism; Z68.1 Body mass index [BMI] 19.9 or less, adult; N40.0 Benign prostatic hyperplasia without lower urinary tract symptoms; K21.9 Gastro-esophageal reflux disease without esophagitis; E78.5 Hyperlipidemia, unspecified; E11.9 Type 2 diabetes mellitus without complications; I10 Essential (primary) hypertension; Z51.5 Encounter for palliative care; E87.6 Hypokalemia; E83.42 Hypomagnesemia; E83.39 Other disorders of phosphorus metabolism; B96.1 Klebsiella pneumoniae [K. pneumoniae] as the cause of diseases classified elsewhere
CPT/HCPCS: 36415; 51702; 70450; 70551; 71045; 80048; 80053; 80306; 80320; 81000; 82140; 82962; 83605; 83735; 84100; 84145; 85007; 85025; 85027; 87040; 87077; 87088; 87186; 87635; 87804; 90662; 93005; 94760; 94799; G0378

== ENCOUNTER 2020-06-19 13:48 | Emergency (ER) | payer MEDICARE, OTHER ==
[~2020-06-19] VITALS: Ht 165 cm; Wt 44.0 kg
[~2020-06-19 13:48] MED LIST changes: +ACET-2267 PO; +AMLO-250 PO; -AMLO5TAB9 PO; +CEFD300C3 PO; +METO100T12 PO; +PANT40TA52 PO; +SAW/1TAB2 PO
--- NOTE | 2020-06-19 14:03 | ED Neurological Problem ---
General Chief Complaint: Neuro-Stroke Like Symptoms Stated Complaint: H BP, LAWRENCE, SLURRED SPEACH Source: patient Exam Limitations: no limitations History of Present Illness Date Seen by Provider: Jun 19, 2020 Time Seen by Provider: 13:58 Initial Comments 85-year-old male presents with concerns of a stroke. Patient was sating a chair when he got her some beer headache that went across his forehead and then had some slurred speech and difficulty speaking. Patient reports that this patient is now resolved. Little bit of a headache. Patient was recently admitted with concerns for stroke with left-sided weakness but then decided he did not have a stroke. Patient denies any fevers chills nausea vomiting cough or other systemic complaints. Outside of the mild headache patient denies any symptoms at this time. Allergies and Home Medications Allergies Coded Allergies: No Known Drug Allergies (Unverified , 09/16/12) Home Medications Acetaminophen 500 Mg Tablet, 1,000 MG PO HS PRN for PAIN-MILD (1-4), (Reported) Amlodipine Besylate 5 Mg Tablet, 5 MG PO DAILY, (Reported) Aspirin 81 Mg Tab.chew, 81 MG PO HS, (Reported) Atorvastatin Calcium 40 Mg Tablet, 40 MG PO DAILY, (Reported) Cefdinir 300 Mg Capsule, 300 MG PO BID Prescribed by: JOSE ELIAS NOEL on 05/23/20 1046 Gabapentin 100 Mg Capsule, 100 MG PO HS, (Reported) Glipizide 2.5 Mg Tab, 2.5 MG PO DAILY, (Reported) Hydralazine HCl 10 Mg Tablet, 10 MG PO BID, (Reported) Lisinopril 40 Mg Tablet, 40 MG PO DAILY, (Reported) Metformin HCl 850 Mg Tablet, 850 MG PO BID, (Reported) Metoprolol Tartrate 100 Mg Tablet, 50 MG PO DAILY, (Reported) TAKES 1/2 OF A 100MG TAB Pantoprazole Sodium 40 Mg Tablet.dr, 40 MG PO DAILY, (Reported) Potassium Chloride 10 Meq Tab.er.prt, 10 MEQ PO DAILY, (Reported) Saw/Vit E/Sod Hannah/Lyc/Beta/Pyg 1 Each Tablet, 1 EACH PO DAILY, (Reported) Patient Home Medication List Home Medication List Reviewed: Yes Review of Systems Review of Systems Constitutional: No chills, No fever Eyes: No Symptoms Reported Ears, Nose, Mouth, Throat: see HPI Respiratory: No cough, No short of breath Cardiovascular: No chest pain, No palpitations Gastrointestinal: No abdominal pain, No nausea, No vomiting Genitourinary: no symptoms reported Musculoskeletal: no symptoms reported Skin: no symptoms reported Psychiatric/Neurological: See HPI Endocrine: No Symptoms Reported Hematologic/Lymphatic: No Symptoms Reported Past Drswtbm-Jrvdro-Mmexbz Hx Past Med/Social Hx: Reviewed Nursing Past Med/Soc Hx Patient Social History 2nd Hand Smoke Exposure: No Recent Foreign Travel: No Contact w/Someone Who Travel: No Recent Hopitalizations: No Immunizations Up To Date Tetanus Booster (TDap): More than 5yrs Date of Pneumonia Vaccine: Aug 16, 2011 Date of Influenza Vaccine: May 16, 2019 Past Medical History Surgeries: Yes (x3 turps) Respiratory: No Cardiac: Yes Hypertension Neurological: Yes Reproductive Disorders: No Sexually Transmitted Disease: No HIV/AIDS: No Genitourinary: Yes Benign Prostatic Hyperpl Gastrointestinal: Yes Gastroesophageal Reflux, Chronic Constipation Musculoskeletal: Yes Fractures, Gout Endocrine: Yes Diabetes, Non-Insulin dep HEENT: Yes Cataract Hearing Impairment: Hard of Hearing Cancer: No Psychosocial: No Integumentary: No Blood Disorders: No Physical Exam Vital Signs Vital Signs - First Documented 06/19/20 13:48 Temp 36.9 Pulse 64 Resp 16 B/P (MAP) 177/81 (113) Pulse Ox 98 O2 Delivery Room Air Capillary Refill : Height, Weight, BMI Height: 5'5.00" Weight: 125lbs. oz. 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 II-XII nml as tested, no motor/sensory deficits, alert, normal mood/affect, oriented x 3 Crainal Nerves: normal speech, PERRL; No facial asymmetry, No facial droop Motor/Sensory: No weak motor strength RUE, No weak motor strength LUE, No weak motor strength RLE, No weak motor strength LLE Skin: normal color, warm/dry Progress/Results/Core Measures Results/Orders Lab Results Laboratory Tests Test 06/19/20 13:56 06/19/20 14:50 Range/Units White Blood Count 6.2 4.3-11.0 10^3/uL Red Blood Count 3.75 L 4.30-5.52 10^6/uL Hemoglobin 11.2 L 13.3-17.7 g/dL Hematocrit 35 L 40-54 % Mean Corpuscular Volume 93 80-99 fL Mean Corpuscular Hemoglobin 30 25-34 pg Mean Corpuscular Hemoglobin Concent 32 32-36 g/dL Red Cell Distribution Width 14.4 10.0-14.5 % Platelet Count 123 L 130-400 10^3/uL Mean Platelet Volume 11.5 9.0-12.2 fL Immature Granulocyte % (Auto) 1 % Neutrophils (%) (Auto) 65 42-75 % Lymphocytes (%) (Auto) 16 12-44 % Monocytes (%) (Auto) 17 H 0-12 % Eosinophils (%) (Auto) 0 0-10 % Basophils (%) (Auto) 0 0-10 % Neutrophils # (Auto) 4.1 1.8-7.8 10^3/uL Lymphocytes # (Auto) 1.0 1.0-4.0 10^3/uL Monocytes # (Auto) 1.1 H 0.0-1.0 10^3/uL Eosinophils # (Auto) 0.0 0.0-0.3 10^3/uL Basophils # (Auto) 0.0 0.0-0.1 10^3/uL Immature Granulocyte # (Auto) 0.1 0.0-0.1 10^3/uL Prothrombin Time 13.4 12.2-14.7 SEC INR Comment 1.0 0.8-1.4 Activated Partial Thromboplast Time 26 24-35 SEC D-Dimer < 0.27 0.00-0.49 UG/ML Sodium Level 135 135-145 MMOL/L Potassium Level 4.4 3.6-5.0 MMOL/L Chloride Level 99 98-107 MMOL/L Carbon Dioxide Level 26 21-32 MMOL/L Anion Gap 10 5-14 MMOL/L Blood Urea Nitrogen 36 H 7-18 MG/DL Creatinine 1.16 0.60-1.30 MG/DL Estimat Glomerular Filtration Rate 60 BUN/Creatinine Ratio 31 Glucose Level 129 H 70-105 MG/DL Calcium Level 9.6 8.5-10.1 MG/DL Corrected Calcium 9.2 8.5-10.1 MG/DL Total Bilirubin 0.5 0.1-1.0 MG/DL Aspartate Amino Transf (AST/SGOT) 17 5-34 U/L Alanine Aminotransferase (ALT/SGPT) 16 0-55 U/L Alkaline Phosphatase 62 40-136 U/L Troponin I < 0.028 <0.028 NG/ML Total Protein 7.0 6.4-8.2 GM/DL Albumin 4.5 3.2-4.5 GM/DL Urine Color YELLOW Urine Clarity CLEAR Urine pH 5.5 5-9 Urine Specific [place] 1.010 L 1.016-1.022 Urine Protein NEGATIVE NEGATIVE Urine Glucose (UA) NEGATIVE NEGATIVE Urine Ketones NEGATIVE NEGATIVE Urine Nitrite NEGATIVE NEGATIVE Urine Bilirubin NEGATIVE NEGATIVE Urine Urobilinogen 0.2 < = 1.0 MG/DL Urine Leukocyte Esterase NEGATIVE NEGATIVE Urine RBC (Auto) TRACE-L NEGATIVE Urine RBC 0-2 /HPF Urine WBC NONE /HPF Urine Squamous Epithelial Cells RARE /HPF Urine Crystals NONE /LPF Urine Bacteria NEGATIVE /HPF Urine Casts NONE /LPF Urine Mucus NEGATIVE /LPF Urine Culture Indicated NO My Orders Orders - GONSALES,ERMA L DO Cbc With Automated Diff (06/19/20 13:59) Protime With Inr (06/19/20 13:59) Partial Thromboplastin Time (06/19/20 13:59) Comprehensive Metabolic Panel (06/19/20 13:59) Fibrin Degradation Products (06/19/20 13:59) Troponin I (06/19/20 13:59) Ua Culture If Indicated (06/19/20 13:59) Chest 1 View, Ap/Pa Only (06/19/20 13:59) Ekg Tracing (06/19/20 13:59) Nothing By Mouth (06/19/20 Lunch) Accucheck Stat ONCE (06/19/20 13:59) Ed Iv/Invasive Line Start (06/19/20 13:59) Vital Signs Stroke Patient Q15M (06/19/20 13:59) Ct Head Wo-R/O Stroke (06/19/20 13:59) Intake & Output 06,14,22 (06/19/20 13:59) Monitor-Rhythm Ecg Trace Only (06/19/20 13:59) Dysphagia Screening Tool (06/19/20 13:59) Lipid Panel (06/20/20 06:00) Tylenol 500 Mg Po (06/19/20 15:27) Vital Signs/I&O 06/19/20 13:48 Temp 36.9 Pulse 64 Resp 16 B/P (MAP) 177/81 (113) Pulse Ox 98 O2 Delivery Room Air Progress Progress Note : Time: 15:28 Progress Note Patient with no acute findings on physical exam, labs with improving chest x-ray negative CT head. Patient reports that his headache resolved. As I was discha laura angulo recently had still little bit of a headache so symptoms Wax and wane. Give some Tylenol prior to discharge. I called and discussed with Dr. Gandara. We scheduled him an appointment for June 27 at noon. He should return the ER if symptoms were worsen or return or call her office if he has any further concerns. Patient's labs are unchanged from his visit with her on June 13. She is discharged in stable condition Departure Impression Primary Impression: Headache Qualified Codes: R51 - Headache Disposition: 01 HOME, SELF-CARE Condition: Stable Departure-Patient Inst. Referrals: ESTELLE GANDARA MD Patient Instructions: Home Headache Remedies, How to Keep Track of Your Headaches, Headache, Adult (DC) Add. Discharge Instructions: We made an appointment for June 27, 2020@ noon with Dr. Gandara Please call Dr. Gandara's office if you have any concerns between now and then Return to the ER with worsening condition You may use Tylenol or ibuprofen as needed for your headache All discharge instructions reviewed with patient and/or family. Voiced understanding. ERMA GONSALES DO Jun 19, 2020 14:03
[2020-06-19 14:04] LABS: BASOPHILS % (AUTO) 0 % (0-10); EOSINOPHILS % (AUTO) 0 % (0-10); HEMATOCRIT 35 % (40-54); HEMOGLOBIN 11.2 g/dL (13.3-17.7); LYMPHOCYTES % (AUTO) 16 % (12-44); MEAN CORPUSCULAR HEMOGLOBIN 30 pg (25-34); MEAN CORPUSCULAR HGB CONC 32 g/dL (32-36); MEAN CORPUSCULAR VOLUME 93 fL (80-99); MEAN PLATELET VOLUME 11.5 fL (9.0-12.2); MONOCYTES # (AUTO) 1.1 10^3/uL (0.0-1.0); MONOCYTES % (AUTO) 17 % (0-12); NEUTROPHILS # (AUTO) 4.1 10^3/uL (1.8-7.8); NEUTROPHILS % (AUTO) 65 % (42-75); PLATELET COUNT 123 10^3/uL (130-400); WHITE BLOOD COUNT 6.2 10^3/uL (4.3-11.0)
[2020-06-19 14:13] LABS: ALBUMIN 4.5 GM/DL (3.2-4.5); CHLORIDE 99 MMOL/L (98-107); POTASSIUM 4.4 MMOL/L (3.6-5.0); SODIUM 135 MMOL/L (135-145)
[2020-06-19 14:14] LABS: CALCIUM 9.6 MG/DL (8.5-10.1)
[2020-06-19 14:15] LABS: GLUCOSE 129 MG/DL (70-105)
[2020-06-19 14:17] LABS: BILIRUBIN,TOTAL 0.5 MG/DL (0.1-1.0); CARBON DIOXIDE 26 MMOL/L (21-32)
[2020-06-19 14:19] LABS: ALKALINE PHOSPHATASE 62 U/L (40-136); CREATININE SERUM 1.16 MG/DL (0.60-1.30); FIBRIN DEGRADATION PRODUCTS < 0.27 UG/ML (0.00-0.49); GFR ESTIMATED 60; PARTIAL THROMBOPLASTIN TIME 26 SEC (24-35); PROTHROMBIN TIME PATIENT 13.4 SEC (12.2-14.7)
--- NOTE | 2020-06-19 14:19 | Diagnostic Imaging Report ---
PROCEDURE: CT head wo r/o stroke. TECHNIQUE: Multiple contiguous axial images were obtained through the brain without the use of intravenous contrast. Auto Exposure Controls were utilized during the CT exam to meet ALARA standards for radiation dose reduction. INDICATION: Weakness, severe headache and slurred speech. COMPARISON: Correlation is made with prior head CT from 05/14/2020. FINDINGS: Ventricles and sulci are appropriate for the patient's age. Moderate periventricular hypodensity is noted consistent with senescent change. 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 No sulcal effacement or midline shift is identified. No acute intra-axial or extra-axial hemorrhage is detected. Cisterns are patent. Visualized paranasal sinuses are clear. IMPRESSION: Senescent changes. No acute intracranial process is detected. Results were called to emergency room at 02:16 p.m. Dictated by: Dictated on workstation # [id number]
[2020-06-19 14:20] LABS: BUN/CREATININE RATIO 31
[2020-06-19 14:22] LABS: ALANINE AMINOTRANSFERASE 16 U/L (0-55)
--- NOTE | 2020-06-19 14:27 | NUR ---
PT'S FAMILY UPDATED BY PHONE.
--- NOTE | 2020-06-19 14:44 | Diagnostic Imaging Report ---
INDICATION: Stroke. Time of exam 2:40 p.m. Correlation is made with prior chest from 05/17/2020. Bilateral pulmonary infiltrates noted on prior exam have now resolved. No new parenchymal density is seen. There is no effusion or pneumothorax. The pulmonary vascularity is normal. IMPRESSION: Resolution of bilateral pulmonary infiltrates when compared with prior examination one month earlier. Dictated by: Dictated on workstation # [id number]
[2020-06-19 14:55] LABS: BILIRUBIN,URINE NEGATIVE (NEGATIVE); CLARITY,URINE CLEAR; COLOR,URINE YELLOW; GLUCOSE, URINE (UA) NEGATIVE (NEGATIVE); KETONES,URINE NEGATIVE (NEGATIVE); LEUKOCYTE ESTERASE ,URINE NEGATIVE (NEGATIVE); NITRITE,URINE NEGATIVE (NEGATIVE); PH,URINE 5.5 (5-9); PROTEIN,URINE NEGATIVE (NEGATIVE)
--- NOTE | 2020-06-19 15:06 | NUR ---
IN TO TALK TO THE PT AT THIS TIME.
[2020-06-19 15:12] LABS: BACTERIA,URINE NEGATIVE /HPF; RBC,URINE 0-2 /HPF; SQUAMOUS EPITHELIAL CELL,UR RARE /HPF
[2020-06-19] MEDS ORDERED: ACETAMINOPHEN 500 MG TAB (TYLENOL) PO STA (15:27)
[2020-06-19 15:43] VITALS: BP 158/80
== END 2020-06-19 15:43 | disposition home or self-care (01) ==
LOC: EDUNIT# 13:48 → ER 13:50
DX: R51.9 Headache, unspecified (principal); I10 Essential (primary) hypertension; K21.9 Gastro-esophageal reflux disease without esophagitis; E11.9 Type 2 diabetes mellitus without complications; Z79.84 Long term (current) use of oral hypoglycemic drugs; Z79.82 Long term (current) use of aspirin
CPT/HCPCS: 36415; 70450; 71045; 80053; 81000; 84484; 85025; 85379; 85610; 85730; 93005; 93041

== ENCOUNTER 2020-12-25 03:29 | Inpatient (IN) | payer MEDICARE, OTHER ==
[~2020-12-25] VITALS: Ht 165 cm; Wt 44.0 kg
[~2020-12-25 03:29] MED LIST changes: +LISI40TA9 PO
[2020-12-25 03:45] LABS: BASOPHILS % (AUTO) 0 % (0-10); MEAN CORPUSCULAR VOLUME 88 fL (80-99)
[2020-12-25 03:47] LABS: EOSINOPHILS % (AUTO) 0 % (0-10); HEMATOCRIT 35 % (40-54); HEMOGLOBIN 11.3 g/dL (13.3-17.7); LYMPHOCYTES # (AUTO) 1.5 10^3/uL (1.0-4.0); LYMPHOCYTES % (AUTO) 16 % (12-44); MEAN CORPUSCULAR HEMOGLOBIN 29 pg (25-34); MEAN CORPUSCULAR HGB CONC 33 g/dL (32-36); MEAN PLATELET VOLUME 11.9 fL (9.0-12.2); MONOCYTES # (AUTO) 1.8 10^3/uL (0.0-1.0); MONOCYTES % (AUTO) 19 % (0-12); NEUTROPHILS # (AUTO) 5.9 10^3/uL (1.8-7.8); NEUTROPHILS % (AUTO) 63 % (42-75); PLATELET COUNT 80 10^3/uL (130-400); WHITE BLOOD COUNT 9.3 10^3/uL (4.3-11.0)
[2020-12-25 03:53] LABS: ALBUMIN 4.3 GM/DL (3.2-4.5)
[2020-12-25 03:54] LABS: CHLORIDE 103 MMOL/L (98-107); SODIUM 141 MMOL/L (135-145)
[2020-12-25 03:55] LABS: CALCIUM 9.4 MG/DL (8.5-10.1)
[2020-12-25 03:56] LABS: GLUCOSE 177 MG/DL (70-105); TOTAL PROTEIN 6.9 GM/DL (6.4-8.2)
[2020-12-25 03:57] LABS: CARBON DIOXIDE 24 MMOL/L (21-32)
[2020-12-25 03:58] LABS: BILIRUBIN,TOTAL 0.6 MG/DL (0.1-1.0)
[2020-12-25 03:59] LABS: ALKALINE PHOSPHATASE 90 U/L (40-136)
[2020-12-25 04:00] LABS: CREATININE SERUM 1.11 MG/DL (0.60-1.30); GFR ESTIMATED > 60
[2020-12-25 04:01] LABS: BUN/CREATININE RATIO 27
[2020-12-25 04:03] LABS: ALANINE AMINOTRANSFERASE 21 U/L (0-55); MAGNESIUM 1.5 MG/DL (1.6-2.4)
[2020-12-25 04:14] LABS: LYMPHOCYTES % (MANUAL) 9 %; MONOCYTES % (MANUAL) 18 %; NEUTROPHILS % (MANUAL) 73 %; RBC MORPH NORMAL
[2020-12-25] MEDS ORDERED: NS IV 1000 ML 1,000 ML IV SCH (04:15)
[2020-12-25] MEDS ORDERED: TETANUS,DIPTH,PERTUSS P/F (BOOSTRIX) 0.5 ML VIAL IM ONE (04:15)
--- NOTE | 2020-12-25 04:44 | ED Fall/Injury ---
General Chief Complaint: Trauma-Non Activation Stated Complaint: AMS Nursing Triage Note: BROUGHT IN BY [facility] FOR FALL/ALTERED MENTAL STATUS. Source: EMS, old records (ALL PMH IS FROM OLD RECORDS) Exam Limitations: other (PT UNABLE TO GIVE ANY INFORMATION, NO FAMILY HERE OR CALLED ER. EMS GIVE VERY LIMITED INFORMATION. ) History of Present Illness Date Seen by Provider: December 25, 2020 Time Seen by Provider: 03:29 Initial Comments PT ARRIVES VIA EMS FROM HOME PT HAD UNWITNESSED FALL TONIGHT--UNSURE OF TIME OF FALL AND LAST KNOWN WELL TIME IS NOT KNOWN PT WAS FOUND LAYING IN THE HALLWAY BY PER EMS, WAS ABLE TO HELP HIM UP AND ASSIST HIM TO THE BATHROOM. WHILE SITTING ON TOILET, HE FELL OFF THE TOILET WELL PT HAS BRUISING AND ABRASIONS/SUPERFICAL LACERATIONS TO FACE--MORE ON LEFT SIDE REPORTEDLY, PER EMS, PT IS HAVING ALTERED MENTATION WITH GARBLED SPEECH, AND PT HAS NOT BEEN ABLE TO STAND SINCE HE FELL OFF THE TOILET. PER EMS, PT HAS HAD "SPELLS" IN THE PAST WITH GARBLED SPEECH AND HAS HISTORY OF CVA, AND SUSPECTED DEMENTIA PER EMS, PT'S BASELINE MENTAL STATUS IS UNCLEAR, BUT REPORTEDLY IS NORMALLY ABLE TO GET UP AND GET HIMSELF TO THE BATHROOM BY HIMSELF AND NORMALLY SPEECH IS NOT GARBLED. FAMILY REPORTED TO EMS THAT HE IS "NOT ACTING RIGHT" PT IS DIABETIC, ACCUCHECK IN 170'S BY EMS EMS REPORT THAT PT IS NOT ON BLOOD THINNERS 0445--DAUGHTER AND PT'S ARE HERE, IS UNABLE TO PROVIDE ANY RELEVANT INFORMATION ABOUT HIS MEDICAL HISTORY. HOWEVER THEY DO REPORT THAT PT IS ON UNKNOWN BLOOD THINNER--PER MED RECONCILIATION, PT HAS BEEN PRESCRIBED PLAVIX. PT HAS HAD PRIOR VISITS HERE FOR ALTERED MENTAL STATUS PCP: DR BACA, PER OLD RECORDS Allergies and Home Medications Allergies Coded Allergies: No Known Drug Allergies (Unverified , 09/16/12) Home Medications Amlodipine Besylate 5 Mg Tablet, 5 MG PO DAILY, (Reported) Last Action: Last Taken Edited Atorvastatin Calcium 40 Mg Tablet, 40 MG PO DAILY, (Reported) Last Action: Last Taken Edited Glipizide 2.5 Mg Tab, 2.5 MG PO DAILY, (Reported) Last Action: Last Taken Edited Hydralazine HCl 10 Mg Tablet, 10 MG PO BID, (Reported) Last Action: Last Taken Edited Lisinopril 40 Mg Tablet, 40 MG PO DAILY, (Reported) Last Action: Last Taken Edited Metformin HCl 850 Mg Tablet, 850 MG PO BID, (Reported) Last Action: Last Taken Edited Metoprolol Tartrate 100 Mg Tablet, 50 MG PO DAILY, (Reported) TAKES 1/2 OF A 100MG TAB Last Action: Last Taken Edited Pantoprazole Sodium 40 Mg Tablet.dr, 40 MG PO DAILY, (Reported) Last Action: Last Taken Edited Potassium Chloride 10 Meq Tab.er.prt, 10 MEQ PO DAILY, (Reported) Last Action: Last Taken Edited Patient Home Medication List Home Medication List Reviewed: Yes Review of Systems Review of Systems Constitutional: other (UNABLE TO OBTAIN FROM PT) Past Bqvdgok-Mryckt-Occgmf Hx Past Med/Social Hx: Reviewed and Corrections made Patient Social History Alcohol Use: Denies Use Smoking Status: Unknown if Ever Smoked 2nd Hand Smoke Exposure: No Recent Infectious Disease Expo: No Recent Hopitalizations: No Immunizations Up To Date Tetanus Booster (TDap): More than 5yrs Date of Pneumonia Vaccine: Aug 16, 2011 Date of Influenza Vaccine: May 16, 2019 Past Medical History Surgeries: Yes (TURP X 3; BILATERAL CATARACTS;EGD/COLONOSCOPY/ESOPHAGEAL DILATION) Eye Surgery, Transurethral Resection Respiratory: No Cardiac: Yes High Cholesterol, Hypertension Neurological: Yes Dementia, Stroke Reproductive Disorders: No Sexually Transmitted Disease: No HIV/AIDS: No Genitourinary: Yes Benign Prostatic Hyperpl, Prostate Problems Gastrointestinal: Yes (ESOPHAGEAL STRICTURE) Gastroesophageal Reflux, Chronic Constipation Musculoskeletal: Yes Fractures, Gout Endocrine: Yes Diabetes, Non-Insulin dep HEENT: Yes Cataract Hearing Impairment: Hard of Hearing Cancer: No Psychosocial: No Integumentary: No Blood Disorders: No Physical Exam Vital Signs Vital Signs - First Documented 12/25/20 03:31 Temp 36.0 Pulse 75 Resp 18 B/P (MAP) 111/78 (89) Pulse Ox 100 O2 Delivery Room Air Capillary Refill : Less Than 3 Seconds Height, Weight, BMI Height: 5'5.00" Weight: 125lbs. oz. 56.293497qk; 16.00 BMI Method:Stated General Appearance: other (AGITATED, SOMEWHAT COMBATIVE. MINIMAL UNINTELLIGIBLE SPEECH WHEN HE IS COMBATIVE. PT DOES NOT FOLLOW COMMANDS, DOES NOT MAKE EYE CONTACT, OR ATTEMPT TO ANSWER ANY QUESTIONS) HEENT: PERRL/EOMI (2 MM AND EQUAL), other (POOR DENTITION, CONSTANT TEETH GRINDING. ABRASION/SUPERFICIAL LACERATION TO LEFT SIDE IF NOSE. MINOR ABRASION TO LEFT CHEEK. BILATERAL PERIORBITAL ECCHYMOSIS AND MILD TO MODERATE EDEMA. DRIED BLOOD IN NARES. NO ACTIVE BLEEDING ANYWHERE. LEFT PINNA OF EAR WITH SUTURES IN PLACE FROM RECENT SKIN CANCER REMOVAL AT THE AREA. ) Neck: other (UNABLE TO DETERMINE IF NECK TENDERNESS IS PRESENT, PT IS MOVING HEAD WITHOUT APPARENT PAIN) Cardiovascular: normal peripheral pulses, regular rate, rhythm, no murmur Respiratory: chest non-tender, normal breath sounds, no respiratory distress, no accessory muscle use Gastrointestinal: normal bowel sounds, non tender, soft Back: normal inspection Extremities: normal range of motion, normal inspection, no pedal edema, normal capillary refill, other (NO APPARENT TENDERNESS OR DEFORMITY TO EXTREMITIES. ) Neurologic/Psychiatric: other (MOVES ALL EXTREMITES, BUT MENTATION NOTED ABOVE. ) Skin: normal color, warm/dry, ecchymosis, other (FACIAL INJURIES ARE ONLY OBVIOUS AREAS OF TRAUMA AT THIS TIME) Progress/Results/Core Measures Results/Orders Lab Results Laboratory Tests Test 12/25/20 03:35 Range/Units White Blood Count 9.3 4.3-11.0 10^3/uL Red Blood Count 3.94 L 4.30-5.52 10^6/uL Hemoglobin 11.3 L 13.3-17.7 g/dL Hematocrit 35 L 40-54 % Mean Corpuscular Volume 88 80-99 fL Mean Corpuscular Hemoglobin 29 25-34 pg Mean Corpuscular Hemoglobin Concent 33 32-36 g/dL Red Cell Distribution Width 13.5 10.0-14.5 % Platelet Count 80 L 130-400 10^3/uL Mean Platelet Volume 11.9 9.0-12.2 fL Immature Granulocyte % (Auto) 1 % Neutrophils (%) (Auto) 63 42-75 % Lymphocytes (%) (Auto) 16 12-44 % Monocytes (%) (Auto) 19 H 0-12 % Eosinophils (%) (Auto) 0 0-10 % Basophils (%) (Auto) 0 0-10 % Neutrophils # (Auto) 5.9 1.8-7.8 10^3/uL Lymphocytes # (Auto) 1.5 1.0-4.0 10^3/uL Monocytes # (Auto) 1.8 H 0.0-1.0 10^3/uL Eosinophils # (Auto) 0.0 0.0-0.3 10^3/uL Basophils # (Auto) 0.0 0.0-0.1 10^3/uL Immature Granulocyte # (Auto) 0.1 0.0-0.1 10^3/uL Neutrophils % (Manual) 73 % Lymphocytes % (Manual) 9 % Monocytes % (Manual) 18 % Percent Immature Platelet Fraction 6.9 0.0-7.6 % Blood Morphology Comment NORMAL Prothrombin Time 13.5 12.2-14.7 SEC INR Comment 1.0 0.8-1.4 Activated Partial Thromboplast Time 26 24-35 SEC Sodium Level 141 135-145 MMOL/L Potassium Level 4.0 3.6-5.0 MMOL/L Chloride Level 103 98-107 MMOL/L Carbon Dioxide Level 24 21-32 MMOL/L Anion Gap 14 5-14 MMOL/L Blood Urea Nitrogen 30 H 7-18 MG/DL Creatinine 1.11 0.60-1.30 MG/DL Estimat Glomerular Filtration Rate > 60 BUN/Creatinine Ratio 27 Glucose Level 177 H 70-105 MG/DL Calcium Level 9.4 8.5-10.1 MG/DL Corrected Calcium 9.2 8.5-10.1 MG/DL Magnesium Level 1.5 L 1.6-2.4 MG/DL Total Bilirubin 0.6 0.1-1.0 MG/DL Aspartate Amino Transf (AST/SGOT) 25 5-34 U/L Alanine Aminotransferase (ALT/SGPT) 21 0-55 U/L Alkaline Phosphatase 90 40-136 U/L Total Protein 6.9 6.4-8.2 GM/DL Albumin 4.3 3.2-4.5 GM/DL My Orders Orders - ROBYN DUVAL DO Ed Iv/Invasive Line Start (12/25/20 03:39) Monitor-Rhythm Ecg Trace Only (12/25/20 03:39) Ct Head/Face/Cervical Wo (12/25/20 03:39) Chest 1 View, Ap/Pa Only (12/25/20 03:39) Pelvis (12/25/20 03:39) Cbc With Automated Diff (12/25/20 03:39) Comprehensive Metabolic Panel (12/25/20 03:39) Magnesium (12/25/20 03:39) Ua Culture If Indicated (12/25/20 03:39) Manual Differential (12/25/20 03:35) Ed Iv/Invasive Line Start (12/25/20 04:03) Ns Iv 1000 Ml (Sodium Chloride 0.9%) (12/25/20 04:15) Dipht,Pertuss(Acell),Tet Adult (Boostrix (12/25/20 04:15) Protime With Inr (12/25/20 04:53) Partial Thromboplastin Time (12/25/20 04:53) Cervical Collar (12/25/20 05:05) Platelet Pheresis Lr (12/25/20 05:08) Medications Given in ED Current Medications Medications Dose Ordered Sig/Chago Route Start Time Stop Time Status Last Admin Dose Admin Diphtheria/ Tetanus/Acell Pertussis 0.5 ml ONCE ONCE IM 12/25/20 04:15 12/25/20 04:16 DC 12/25/20 04:27 0.5 ML Vital Signs/I&O 12/25/20 03:31 Temp 36.0 Pulse 75 Resp 18 B/P (MAP) 111/78 (89) Pulse Ox 100 O2 Delivery Room Air Blood Pressure Mean: 89 Progress Progress Note : Progress Note GIVEN IV FLUIDS PLACED IN CERVICAL COLLAR--PT COMBATIVE AND REPEATEDLY TRYING TO REMOVE IT GIVEN ATIVAN AND FENTANYL WITH SOME IMPROVEMENT IN COMBATIVENESS. VITALS REMAINED STABLE AND NO DETERIORATION IN PT'S CONDITION DURING ER STAY PT REMAINED AWAKE THROUGHOUT ER STAY, AND MOVING ALL EXTREMITIES. Diagnostic Imaging Comments CXR--NO ACUTE PROCESS, PENDING RADIOLOGIST REVIEW PELVIS XRAY--NO ACUTE PROCESS, PENDING RADIOLOGIST REVIEW CT HEAD/MAXILLOFACIALS/CERVICAL SPINE--RIGHT TENTORIAL SUBDURAL HEMATOMA 2-3 MM IN THICKNESS. NO MASS EFFECT OR MIDLINE SHIFT. 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 COMMINUTED NASAL BONE FRACTURE. DISPLACED FRACTURE OF C2 VERTEBRAL BODY WITH 3 MM ANTERIOR OFFSET. OTHER CHRONIC/DEGENERATIVE CHANGES--PER [facility] RADIOLOGIST VIA PHONE AT 0444 AND VIA VAX AT 0452 AND 0454 Reviewed: Reviewed by Me, Discussed w/Radiologist Departure Communication (Admissions) Family Conversation 444--PT'S AND DAUGHTER ARE HERE, UPDATED THEM ON PT'S CONDITION AND CT FINDINGS. THEY REPORT THAT PT IS DNR/DNI DISCUSSED OPTIONS OF TRANSFERRING TO HIGHER LEVEL OF CARE WITH NEUROSURGICAL CAPABILITY VS KEEPING HERE ON COMFORT MEASURES. 0458--ON SPEAKER PHONE WITH PT'S SON, WHO IS INTERVENTIONAL RADIOLOGIST. DISCUSSED CT FINDINGS, AND UPDATED HIM ON PT'S CONDITION. DISCUSSED THE ABOVE OPTIONS, WELL RISKS/BENEFITS OF SURGERY, QUALITY OF LIFE, ETC. HE WILL TALK MORE WITH FAMILY ABOUT OPTIONS. ALSO ADVISED FAMILY THAT PT MAY NOT SURVIVE THIS, WITH OR WITHOUT SURGERY. 0525--FAMILY HAVE DECIDED TO KEEP HERE ON COMFORT MEASURES 0511--SPOKE WITH DR. BACA, SHE ADVISES TO CONSULT WITH NEUROSURGERY, AND AGREES THAT PT IS LIKELY NOT A GOOD CANDIDATE FOR SURGERY AND CURRENT QUALITY OF LIFE IS NOT VERY GOOD AT BASELINE. 0514--CALLED [facility]. ESPITIA NEUROSURGEON. CLOUDING PT'S IMAGES TO [place] 0517--SPOKE WITH DR. BENSON, NEUROSURGEON. HE IS NOT CURRENTLY ABLE TO VIEW IMAGES, BUT BASED ON DESCRIPTION OF CT FINDINGS AND RADIOLOGIST REPORTS, HE STATES THAT PT MAY NOT BE A CANDIDATE FOR SURGERY, AND MAY NEED ASSISTED CERVICAL COLLAR AN OPTION. ALSO WITH PT BEING ON PLAVIX, THIS FURTHER COMPLICATES THE ISSUE. IF FAMILY CHOOSES TO SEEK HIGHER LEVEL OF SERVICES AND NEUROSURGICAL EVALUATION, HE WILL BE HAPPY TO ACCEPT PT. 0528--SPOKE WITH DR. BACA AND DISCUSSED ALL OF THE ABOVE, AND FAMILY'S DECISION TO KEEP PT HERE AND PROVIDE COMFORT MEASURES. SHE IS AGREEABLE TO GIVING PLATELETS FOR PT WITH INTRACRANIAL BLEEDING AND PT CURRENTLY ON PLAVIX. 0700--SPOKE WITH DR. LINDA, TRAUMA SURGEON AND INFORMED HIM OF PT, BUT NO TRAUMA CONSULT NEEDED, PT IS BEING ADMITTED FOR COMFORT CARE. Impression Primary Impression: Status post fall Additional Impressions: ACUTE TRAUMATIC SUBDURAL HEMATOMA Closed C2 fracture Nasal bone fractures Altered mental status PLAVIX THERAPY NIDDM Disposition: ADMITTED INPATIENT Condition: Stable/Unchanged Admissions Decision to Admit Reason: Admit from ER (Trauma) Decision to Admit/Date: December 25, 2020 Time/Decision to Admit Time: 05:30 Departure-Patient Inst. Referrals: ESTELLE BACA MD (PCP/Family) Primary Care Physician ROBYN DUVAL DO December 25, 2020 04:44
[2020-12-25] MEDS ORDERED: CLOP75TA28 (05:00)
[2020-12-25 05:13] LABS: PROTHROMBIN TIME PATIENT 13.5 SEC (12.2-14.7)
[2020-12-25] MEDS ORDERED: fentaNYL INJ 100 MCG/2 ML AMP IVP ONE (05:45)
[2020-12-25] MEDS ORDERED: LORazepam INJ 2 MG/ML (ATIVAN) VIAL IVP PRN (05:45)
[2020-12-25 06:18] VITALS: BP 123/65
--- NOTE | 2020-12-25 06:21 | Diagnostic Imaging Report ---
INDICATION: Post fall, altered mental status, bruising and swelling. TECHNIQUE: AP pelvis 4:04 AM CORRELATION STUDY: None FINDINGS: The pelvis demonstrates no evidence for acute fracture. The pectineal lines and obturator rings are maintained. Pubic symphysis and SI joints are unremarkable. Moderately advanced degenerative changes bilateral hips. Bilateral joint space narrowing. Advanced degenerative change visualized lower lumbar spine. IMPRESSION: Negative for acute traumatic abnormality of the pelvis. Dictated by: Dictated on workstation # [id number]
--- NOTE | 2020-12-25 06:22 | Diagnostic Imaging Report ---
INDICATION: FALL. Altered mental status, bruising and swelling. TECHNIQUE: Single view chest 4:04 AM. CORRELATION STUDY: 06/19/2020 FINDINGS: Heart size and mediastinum are generally stable. Tortuous course thoracic aorta. Chronic appearing changes about lung parenchyma. No definitive infiltrate, effusion or pneumothorax. No definitive acute displaced fracture. Rightward curvature thoracic spine with advanced degenerative change. Compression deformity mid to lower thoracic vertebral bodies. Marked high riding humeral heads with advanced degenerative change of both shoulders. Raise concern for underlying rotator cuff pathology. IMPRESSION: 1. Negative for acute traumatic abnormality of the chest. 2. Most multiple osseous findings as detailed above. Dictated by: Dictated on workstation # [id number]
[2020-12-25] MEDS ORDERED: ARTIFICAL TEARS 0.4 ML UNIT DOSE (REFRESH PLUS) OU PRN (06:30)
[2020-12-25] MEDS ORDERED: BISACODYL 10 MG SUPP (DULCOLAX) PR PRN (06:30)
[2020-12-25] MEDS ORDERED: ACETAMINOPHEN 650 MG SUPP (TYLENOL) PR PRN (06:30)
[2020-12-25] MEDS ORDERED: ATROPINE 1% OPHTHALMIC SOLN 2 ML SL PRN (06:30)
[2020-12-25] MEDS ORDERED: ONDANSETRON 4 MG/2 ML (SDV) Z0FRAN IVP PRN (06:30)
--- NOTE | 2020-12-25 06:37 | Diagnostic Imaging Report ---
PROCEDURE: CT head, face, and cervical spine without contrast. TECHNIQUE: Multiple contiguous axial images were obtained through the head, neck, and facial bones without the use of intravenous contrast. Sagittal and coronal reformations through the cervical spine and facial bones were also performed. Auto Exposure Controls were utilized during the CT exam to meet ALARA standards for radiation dose reduction. INDICATION: Trauma, fall, altered mental status, bruising and swelling of the face. CORRELATION STUDY: CTA 06/19/2020 FINDINGS: CT HEAD: Generalized atrophic changes with prominence of the ventricles and sulci. Scattered areas of decreased attenuation likely reflect small vessel ischemic disease. Old lacunar infarcts left thalamus. There is presence of a acute subdural hematoma along the right tentorium measuring up to approximately [address] MAXILLOFACIAL: There is rather marked soft tissue edema particularly over the nose and periorbital region. Multipart comminuted fractures of the nasal bones with areas up to 3 mm of offset are present. Orbital evans including floors intact. Pterygoid plates maintained. Zygomatic arch is intact. The mandible has advanced degenerative changes of the supramandibular joints. Mandible is intact. Mucosal thickening of the ethmoid sinus. Mild mucosal thickening of the right maxillary sinus. No definitive air-fluid level. CT CERVICAL SPINE: There is extensive comminuted fracture through the majority of the C2 vertebral body. Up to 3 mm of anterior offset of the main fracture fragments is noted. Fracture extends to the endplate. The odontoid itself appears to be intact. Occipital condyle maintained. Lateral masses C1 and C2 appear to be near anatomic in alignment. Findings are superimposed on rather severe multilevel degenerative changes. This includes areas of significant disc space narrowing. Multilevel bilateral facet arthropathy along with bilateral neural foraminal narrowing present. IMPRESSION: CT HEAD: 1. Acute, right tentorial subdural hematoma, [address] MAXILLOFACIAL: 1. Extensive comminuted displaced fracture of the bilateral nasal bones. CT CERVICAL SPINE: 1. Comminuted displaced fracture through large portion of the anterior C2 vertebral body. Up to 3 mm of anterior offset present. 2. Rather markedly advanced degenerative changes through the cervical spine. Initial report was provided by [facility]. Dictated by: Dictated on workstation # [id number]
[2020-12-25] MEDS: SCOPOLAMINE 1.5 MG (TRANSDERM-SCOP) PATCH TOP SCH (06:41)
[2020-12-25] MEDS: SCOPOLAMINE PATCH REMOVAL TP SCH (06:56)
[2020-12-25 07:28] VITALS: BP 178/90
[2020-12-25] MEDS: morphine INJ 4 MG/ML 1 ML (VIAL/SYRINGE) IV PRN ×4 (07:58→23:29)
[2020-12-25] MEDS: LORazepam INJ 2 MG/ML (ATIVAN) VIAL IVP PRN ×2 (08:52→17:24)
--- NOTE | 2020-12-25 13:10 | History & Physical ---
History of Present Illness History of Present Illness Reason for visit/HPI PT IS AN 85 Y/O MALE WHO IS KNOWN TO ME FROM CLINIC. HE PRESENTED TO THE HOSPITAL AFTER A FALL AT HOME. HIS FOUND HIM DOWN ON THE GROUND AFTER HEARING HIM FALL. SHE REPORTS THAT THERE WAS BLOOD ON THE DOOR WHERE HIS FACE HIT THE DOOR AND HE WAS BLEEDING FROM HIS NOSE PROFUSELY. THE EMERGENCY DEPARTMENT CALLED TO THE NEUROSURGEON AFTER CT OF HIS NECK REVEALED AN UNSTABLE C2 FRACTURE AND A SUB-DURAL BLEED. Date of Admission December 25, 2020 at 05:30 Date Seen by a Provider: December 25, 2020 Time Seen by a Provider: 09:00 Attending Physician Estelle Gandara MD Admitting Physician Estelle Gandara MD Consult Allergies and Home Medications Allergies Coded Allergies: No Known Drug Allergies (Unverified , 09/16/12) Home Medications Amlodipine Besylate 5 Mg Tablet, 5 MG PO DAILY, (Reported) Last Action: Held Atorvastatin Calcium 40 Mg Tablet, 40 MG PO DAILY, (Reported) Last Action: Held Glipizide 2.5 Mg Tab, 2.5 MG PO DAILY, (Reported) Last Action: Held Hydralazine HCl 10 Mg Tablet, 10 MG PO BID, (Reported) Last Action: Held Lisinopril 40 Mg Tablet, 40 MG PO DAILY, (Reported) Last Action: Held Metformin HCl 850 Mg Tablet, 850 MG PO BID, (Reported) Last Action: Held Metoprolol Tartrate 100 Mg Tablet, 50 MG PO DAILY, (Reported) TAKES 1/2 OF A 100MG TAB Last Action: Held Pantoprazole Sodium 40 Mg Tablet.dr, 40 MG PO DAILY, (Reported) Last Action: Held Potassium Chloride 10 Meq Tab.er.prt, 10 MEQ PO DAILY, (Reported) Last Action: Held Patient Home Medication List Home Medication List Reviewed: Yes Past Tojyplw-Bqcejj-Hqfald Hx Past Med/Social Hx: Reviewed Nursing Past Med/Soc Hx, Reviewed and Corrections made Patient Social History Marrital Status: Number of Children: 2 Number of living children: 2 Living Status: LIVES AT HOME WITH Employed/Student: retired Alcohol Use: Denies Use Recreational Drug Use: No Smoking Status: Unknown if Ever Smoked 2nd Hand Smoke Exposure: No Physical Abuse Screen: No Sexual Abuse: No Recent Foreign Travel: No Contact w/other who traveled: No Recent Hopitalizations: No Recent Infectious Disease Expo: No Immunizations Up To Date Tetanus Booster (TDap): More than 5yrs Date of Pneumonia Vaccine: Aug 16, 2011 Date of Influenza Vaccine: May 16, 2019 Past Medical History Surgeries: Eye Surgery, Transurethral Resection Cardiac: Coronary Artery Disease, High Cholesterol, Hypertension Neurological: Dementia, Stroke Reproductive: No Sexually Transmitted Disease: No HIV/AIDS: No Genitourinary: Benign Prostatic Hyperpl, Prostate Problems Gastrointestinal: Gastroesophageal Reflux, Chronic Constipation Musculoskeletal: Fractures, Gout Endocrine: Diabetes, Non-Insulin dep HEENT: Cataract Hearing Impairment: Hard of Hearing History of Blood Disorders: No Family History Reviewed Nursing Family Hx Hypertension Review of Systems ROS-Unable to Obtain: PT OBTUNDED Constitutional: other (PT OBTUNDED) All Other Systems Reviewed Negative Unless Noted: No Physical Exam Vital Signs Vital Signs - First Documented 12/25/20 12/25/20 03:31 05:44 Temp 36.0 Pulse 75 Resp 18 B/P (MAP) 111/78 (89) Pulse Ox 100 O2 Delivery Room Air O2 Flow Rate 2.00 Capillary Refill : Less Than 3 Seconds Height, Weight, BMI Height: 5'5.00" Weight: 125lbs. oz. 56.094795tw; 16.00 BMI Method:Stated General Appearance: Thin, Other (OBTUNDED) HEENT: PERRL/EOMI Neck: Other (NECK BRACE IN PLACE) Respiratory: Chest Non Tender, Lungs Clear, Normal Breath Sounds, No Accessory Muscle Use, No Respiratory Distress Cardiovascular: Regular Rate, Rhythm Gastrointestinal: Normal Bowel Sounds, Soft Rectal: Deferred Extremity: Normal Capillary Refill, Non Tender, No Pedal Edema Neurologic/Psychiatric: Other (OBTUNDED) Skin: Warm/Dry Lymphatic: No Adenopathy Assessment/Plan Assessment and Plan FALL AT HOME SUBDURAL HEMATOMA DISPLACED FRACTURE OF THE NASAL BONES DISPLACED FRACTURE OF C2 VERTEBRAL BODY CONCUSSION HYPERTENSION CORONARY ARTERY DISEASE DIABETES MELLITUS HYPERLIPIDEMIA ADVANCED AGE FALL AT HOME WITH SUSTAINED *SUBDURAL HEMATOMA *DISPLACED FRACTURE OF THE NASAL BONES *DISPLACED FRACTURE OF C2 VERTEBRAL BODY *CONCUSSION IMAGING FOLLOWS: CT HEAD: 1. Acute, right tentorial subdural hematoma, [address] MAXILLOFACIAL: 1. Extensive comminuted displaced fracture of the bilateral nasal bones. CT CERVICAL SPINE: 1. Comminuted displaced fracture through large portion of the anterior C2 vertebral body. Up to 3 mm of anterior offset present. 2. Rather markedly advanced degenerative changes through the cervical spine. HYPERTENSION CORONARY ARTERY DISEASE DIABETES MELLITUS HYPERLIPIDEMIA ADVANCED AGE PT ADMITTED FOR COMFORT CARE FOR ABOVE NAMED INJURIES - DISCUSSED WITH PT'S ALANNAH, DTR ARASELI AND SON GHULAM. HE HAS POTENTIAL LIFE ENDING INJURIES, OVER THE NEXT FEW DAYS WE WILL SEE IF HE STABILIZES FROM HIS INJURIES OR IF HIS SUCCUMBS TO THE INJURIES AND PASSES AWAY. IF HE DOES SURVIVE WE WILL NEED TO MAKE PLANS FOR PRISON CARE. WE WILL HAVE PALLIATIVE CARE CONSULT ON THE CASE AND AIDE PLACEMENT FOR NEXT WEEK IF HE SURVIVES HIS INJURIES. THE PT IS AT VERY HIGH RISK OF DUE TO ADVANCED AGE AND HIS SUSTAINED INJURIES. Admission Diagnosis SUBDURAL HEMATOMA DISPLACED FRACTURE OF THE NASAL BONES DISPLACED FRACTURE OF C2 VERTEBRAL BODY CONCUSSION HYPERTENSION CORONARY ARTERY DISEASE DIABETES MELLITUS HYPERLIPIDEMIA ADVANCED AGE Admission Status: Inpatient Order (span 2 midnights) Reason for Inpatient Admission: PT ADMITTED FOR TREATMENT OF PAIN, COMFORT CARE FOR POTENTIAL LIFE-ENDING INJURIES ESTELLE GANDARA MD December 25, 2020 13:10
[2020-12-25] MEDS: SALIVA STIMULANT MOUTH SPRAY (BIOTENE) 1.5 OZ MM PRN (13:54)
[2020-12-26] MEDS: morphine INJ 4 MG/ML 1 ML (VIAL/SYRINGE) IV PRN ×4 (05:18→19:46)
--- NOTE | 2020-12-26 09:18 | Progress Note ---
Subjective Subjective Date Seen by Provider: December 26, 2020 Time Seen by Provider: 08:10 PT OPENS EYES TO VOICE, THEN NO MORE INTERACTION NOTED THIS MORNING. STAFF NOTES THAT THEY HAVE BEEN ROUTINELY GIVING PAIN MEDICATION. THEY DENY ANY OTHER CONCERNS NEEDS/ Review of Systems General: No Chills; Fatigue Pulmonary: No Dyspnea, No Cough Cardiovascular: No: Chest Pain Neurological: Weakness, Confusion (MOSTLY OBTUNDED) Objective Exam Vital Signs Vital Signs - First Documented 12/25/20 12/25/20 03:31 05:44 Temp 36.0 Pulse 75 Resp 18 B/P (MAP) 111/78 (89) Pulse Ox 100 O2 Delivery Room Air O2 Flow Rate 2.00 Capillary Refill : Less Than 3 Seconds General Appearance: No Apparent Distress (OBTUNDED) Neck: Other (C COLLAR IN PLACE) Respiratory: Lungs Clear, Normal Breath Sounds Cardiovascular: Regular Rate, Rhythm, Systolic Murmur Gastrointestinal: Normal Bowel Sounds, Non Tender, Soft Rectal: Deferred Extremity: Normal Capillary Refill, No Pedal Edema Neurologic/Psychiatric: Other (OBTUNDED) Skin: Warm/Dry Assessment/Plan Assessment/Plan Assessment and Plan FALL AT HOME SUBDURAL HEMATOMA DISPLACED FRACTURE OF THE NASAL BONES DISPLACED FRACTURE OF C2 VERTEBRAL BODY CONCUSSION HYPERTENSION CORONARY ARTERY DISEASE DIABETES MELLITUS HYPERLIPIDEMIA ADVANCED AGE FALL AT HOME WITH SUSTAINED *SUBDURAL HEMATOMA *DISPLACED FRACTURE OF THE NASAL BONES *DISPLACED FRACTURE OF C2 VERTEBRAL BODY *CONCUSSION IMAGING FOLLOWS: CT HEAD: 1. Acute, right tentorial subdural hematoma, [address] MAXILLOFACIAL: 1. Extensive comminuted displaced fracture of the bilateral nasal bones. CT CERVICAL SPINE: 1. Comminuted displaced fracture through large portion of the anterior C2 vertebral body. Up to 3 mm of anterior offset present. 2. Rather markedly advanced degenerative changes through the cervical spine. HYPERTENSION CORONARY ARTERY DISEASE DIABETES MELLITUS HYPERLIPIDEMIA ADVANCED AGE PT ADMITTED FOR COMFORT CARE FOR ABOVE NAMED INJURIES - DISCUSSED WITH PT'S ALANNAH, DTR ARASELI AND SON GHULAM ON ADMISSION. HE HAS POTENTIAL LIFE ENDING INJURIES, OVER THE NEXT FEW DAYS WE WILL SEE IF HE STABILIZES FROM HIS INJURIES OR IF HIS SUCCUMBS TO THE INJURIES AND PASSES AWAY. IF HE DOES SURVIVE WE WILL NEED TO MAKE PLANS FOR ASSISTED CARE. WE WILL HAVE PALLIATIVE CARE CONSULT ON THE CASE AND AIDE PLACEMENT FOR NEXT WEEK IF HE SURVIVES HIS INJURIES. THE PT IS AT VERY HIGH RISK OF DUE TO ADVANCED AGE AND HIS SUSTAINED INJURIES. PT CONTINUES TO BE NPO OUT OF OWN VOLITION ESTELLE BACA MD December 26, 2020 09:18
[2020-12-27] MEDS: morphine INJ 4 MG/ML 1 ML (VIAL/SYRINGE) IV PRN ×6 (00:57→20:53)
--- NOTE | 2020-12-27 09:47 | Progress Note ---
Subjective Subjective Date Seen by Provider: December 27, 2020 Time Seen by Provider: 09:00 PT OPENS EYES TO VOICE, HE SAID HELLO, THEN CLOSED EYES AND DID NOT INTERACT ANY MORE WITH THIS CERTIFIED TEACHER ASSISTANT. HIS DTR REPORTS THAT HE INTERACTED ABOUT THE SAME WITH HER FAMILY YESTERDAY. THE STAFF REPORTS GIVING PAIN MEDICATION THIS MORNING BECAUSE HE INDICATED HE WAS IN PAIN AFTER THEY MOVED HIM AND GAVE HIM A BED BATH. DTR REPORTS THAT HER MOM WAS ENCOURAGED YESTERDAY AND WAS HOPEFUL THAT HE WOULD BE ABLE TO GO HOME WITH HER TO CARE FOR HIM. THE FAMILY (OTHER THAN THE ) DOES NOT BELIEVE THAT ALANNAH CAN CARE FOR HIM. Review of Systems ROS Unable to Obtain: PT OBTUNDED General: No Chills; Fatigue Pulmonary: No Dyspnea, No Cough Cardiovascular: No: Chest Pain Neurological: Weakness, Confusion (MOSTLY OBTUNDED) All Other Systems Reviewed All Other Systems Reviewed: No Objective Exam Vital Signs Vital Signs - First Documented 12/25/20 12/25/20 03:31 05:44 Temp 36.0 Pulse 75 Resp 18 B/P (MAP) 111/78 (89) Pulse Ox 100 O2 Delivery Room Air O2 Flow Rate 2.00 Capillary Refill : Less Than 3 Seconds General Appearance: No Apparent Distress (OBTUNDED) HEENT: PERRL/EOMI Neck: Other (C COLLAR IN PLACE) Respiratory: Lungs Clear, Normal Breath Sounds Cardiovascular: Regular Rate, Rhythm, Systolic Murmur Gastrointestinal: Normal Bowel Sounds, Non Tender, Soft Rectal: Deferred Extremity: Normal Capillary Refill, No Pedal Edema Neurologic/Psychiatric: Other (OBTUNDED) Skin: Warm/Dry Lymphatic: No Adenopathy Assessment/Plan Assessment/Plan Admission Dx SUBDURAL HEMATOMA DISPLACED FRACTURE OF THE NASAL BONES DISPLACED FRACTURE OF C2 VERTEBRAL BODY CONCUSSION HYPERTENSION CORONARY ARTERY DISEASE DIABETES MELLITUS HYPERLIPIDEMIA ADVANCED AGE Assessment and Plan FALL AT HOME SUBDURAL HEMATOMA DISPLACED FRACTURE OF THE NASAL BONES DISPLACED FRACTURE OF C2 VERTEBRAL BODY CONCUSSION HYPERTENSION CORONARY ARTERY DISEASE DIABETES MELLITUS HYPERLIPIDEMIA ADVANCED AGE FALL AT HOME WITH SUSTAINED *SUBDURAL HEMATOMA *DISPLACED FRACTURE OF THE NASAL BONES *DISPLACED FRACTURE OF C2 VERTEBRAL BODY *CONCUSSION IMAGING FOLLOWS: CT HEAD: 1. Acute, right tentorial subdural hematoma, [address] MAXILLOFACIAL: 1. Extensive comminuted displaced fracture of the bilateral nasal bones. CT CERVICAL SPINE: 1. Comminuted displaced fracture through large portion of the anterior C2 vertebral body. Up to 3 mm of anterior offset present. 2. Rather markedly advanced degenerative changes through the cervical spine. HYPERTENSION CORONARY ARTERY DISEASE DIABETES MELLITUS HYPERLIPIDEMIA ADVANCED AGE PT ADMITTED FOR COMFORT CARE FOR ABOVE NAMED INJURIES - DISCUSSED WITH PT'S ALANNAH, DTR ARASELI AND SON GHULAM ON ADMISSION. HE HAS POTENTIAL LIFE ENDING INJURIES, OVER THE WEEKEND WE WILL CONTINUE TO MONITOR HIS SYMPTOMS AND SEE IF HE STABILIZES FROM HIS INJURIES OR IF HIS SUCCUMBS TO THE INJURIES AND PASSES AWAY. IF HE DOES SURVIVE WE WILL NEED TO MAKE PLANS FOR PENITENTIARY CARE. PALLIATIVE CARE CONSULT ON THE CASE AND AIDE PLACEMENT FOR NEXT WEEK IF HE MACDONALD RVIVES HIS INJURIES. PT IS STILL NPO OUT OF HIS OWN LACK OF REQUEST FOR FLUIDS/FOODS DUE TO OBTUNDED STATUS. THE PT IS AT VERY HIGH RISK OF DUE TO ADVANCED AGE AND HIS SUSTAINED INJURIES. Admission Dx SUBDURAL HEMATOMA DISPLACED FRACTURE OF THE NASAL BONES DISPLACED FRACTURE OF C2 VERTEBRAL BODY CONCUSSION HYPERTENSION CORONARY ARTERY DISEASE DIABETES MELLITUS HYPERLIPIDEMIA ADVANCED AGE Clinical Quality Measures Admission Status Admission Dx SUBDURAL HEMATOMA DISPLACED FRACTURE OF THE NASAL BONES DISPLACED FRACTURE OF C2 VERTEBRAL BODY CONCUSSION HYPERTENSION CORONARY ARTERY DISEASE DIABETES MELLITUS HYPERLIPIDEMIA ADVANCED AGE ESTELLE BACA MD December 27, 2020 09:47
[2020-12-27] MEDS: GLYCOPYRROLATE 0.2 MG/ML (ROBINUL) 2 ML VIAL IV PRN (21:05)
[2020-12-27] MEDS: SALIVA STIMULANT MOUTH SPRAY (BIOTENE) 1.5 OZ MM PRN (21:10)
[2020-12-28] MEDS: morphine INJ 4 MG/ML 1 ML (VIAL/SYRINGE) IV PRN ×11 (00:42→23:20)
[2020-12-28] MEDS: GLYCOPYRROLATE 0.2 MG/ML (ROBINUL) 2 ML VIAL IV PRN ×2 (04:29→14:17)
[2020-12-28] MEDS: SCOPOLAMINE 1.5 MG (TRANSDERM-SCOP) PATCH TOP SCH (06:42)
[2020-12-28] MEDS: SCOPOLAMINE PATCH REMOVAL TP SCH (06:44)
[2020-12-28] MEDS: SALIVA STIMULANT MOUTH SPRAY (BIOTENE) 1.5 OZ MM PRN (06:44)
--- NOTE | 2020-12-28 09:16 | Progress Note ---
Subjective Subjective Date Seen by Provider: December 28, 2020 Time Seen by Provider: 09:30 PT OPENS EYES TO VOICE, HE SAID JARRED, KNOWS WHO THIS CELERY WRAPPER IS, HE INFORMED ME THAT HE IS NOT IN PAIN, AND THEN CLOSED EYES AND DID NOT INTERACT ANY MORE WITH THIS CELERY WRAPPER. HIS SON REPORTS THAT HE INTERACTED WITH HIM LAST NIGHT AND HAD MINIMAL CONVERSATION. PT HAD A BITE FROM A POPSICLE LAST NIGHT, DOES NOT VOICE HUNGER OR THIRST Review of Systems ROS Unable to Obtain: PT OBTUNDED General: No Chills; Fatigue, Malaise, Appetite (DECREASED) Pulmonary: No Dyspnea, No Cough Cardiovascular: No: Chest Pain Neurological: Weakness, Confusion (MOSTLY OBTUNDED) All Other Systems Reviewed All Other Systems Reviewed: No Objective Exam Vital Signs Vital Signs - First Documented 12/25/20 12/25/20 03:31 05:44 Temp 36.0 Pulse 75 Resp 18 B/P (MAP) 111/78 (89) Pulse Ox 100 O2 Delivery Room Air O2 Flow Rate 2.00 Capillary Refill : Less Than 3 Seconds General Appearance: No Apparent Distress (MINIMAL INTERACTION) HEENT: PERRL/EOMI Neck: Other (C COLLAR IN PLACE) Respiratory: Lungs Clear, Normal Breath Sounds Cardiovascular: Systolic Murmur, Tachycardia Gastrointestinal: Normal Bowel Sounds, Non Tender, Soft Rectal: Deferred Extremity: Normal Capillary Refill, No Pedal Edema Neurologic/Psychiatric: Other (SLIGHT INTERACTION, OPENS EYES, THEN HAS BRIEF VERBALIZATIONS AND IS BACK TO SLEEP) Skin: Warm/Dry Lymphatic: No Adenopathy Assessment/Plan Assessment/Plan Admission Dx SUBDURAL HEMATOMA DISPLACED FRACTURE OF THE NASAL BONES DISPLACED FRACTURE OF C2 VERTEBRAL BODY CONCUSSION HYPERTENSION CORONARY ARTERY DISEASE DIABETES MELLITUS HYPERLIPIDEMIA ADVANCED AGE Assessment and Plan FALL AT HOME SUBDURAL HEMATOMA DISPLACED FRACTURE OF THE NASAL BONES DISPLACED FRACTURE OF C2 VERTEBRAL BODY CONCUSSION HYPERTENSION CORONARY ARTERY DISEASE DIABETES MELLITUS HYPERLIPIDEMIA ADVANCED AGE FALL AT HOME WITH SUSTAINED *SUBDURAL HEMATOMA *DISPLACED FRACTURE OF THE NASAL BONES *DISPLACED FRACTURE OF C2 VERTEBRAL BODY *CONCUSSION IMAGING FOLLOWS: CT HEAD: 1. Acute, right tentorial subdural hematoma, [address] MAXILLOFACIAL: 1. Extensive comminuted displaced fracture of the bilateral nasal bones. CT CERVICAL SPINE: 1. Comminuted displaced fracture through large portion of the anterior C2 ve rtebral body. Up to 3 mm of anterior offset present. 2. Rather markedly advanced degenerative changes through the cervical spine. HYPERTENSION CORONARY ARTERY DISEASE DIABETES MELLITUS HYPERLIPIDEMIA ADVANCED AGE PT ADMITTED FOR COMFORT CARE FOR ABOVE NAMED INJURIES - DISCUSSED WITH PT'S ALANNAH, DTR ARASELI AND SON GHULAM ON ADMISSION. GERI HAS POTENTIAL LIFE ENDING INJURIES, OVER THE NEXT FEW DAYS WE WILL CONTINUE TO MONITOR HIS SYMPTOMS AND SEE IF HE STABILIZES FROM HIS INJURIES OR IF HIS SUCCUMBS TO THE INJURIES AND PASSES AWAY. IT IS LOOKING MORE AND MORE IF WE WILL NEED TO MAKE PLANS FOR LONG TERM CARE. PT IS STILL TAKING IN MINIMAL FLUID OUT OF HIS OWN LACK OF REQUEST FOR FLUIDS/FOODS DUE TO HIS CURRENT DECREASED COGNITIVE AWARENESS. THE PT IS AT VERY HIGH RISK OF DUE TO ADVANCED AGE AND HIS SUSTAINED INJURIES. Admission Dx SUBDURAL HEMATOMA DISPLACED FRACTURE OF THE NASAL BONES DISPLACED FRACTURE OF C2 VERTEBRAL BODY CONCUSSION HYPERTENSION CORONARY ARTERY DISEASE DIABETES MELLITUS HYPERLIPIDEMIA ADVANCED AGE Clinical Quality Measures Admission Status Admission Dx SUBDURAL HEMATOMA DISPLACED FRACTURE OF THE NASAL BONES DISPLACED FRACTURE OF C2 VERTEBRAL BODY CONCUSSION HYPERTENSION CORONARY ARTERY DISEASE DIABETES MELLITUS HYPERLIPIDEMIA ADVANCED AGE ESTELLE BACA MD December 28, 2020 09:16
[2020-12-29] MEDS: morphine INJ 4 MG/ML 1 ML (VIAL/SYRINGE) IV PRN ×10 (01:13→23:04)
[2020-12-29] MEDS: LORazepam INJ 2 MG/ML (ATIVAN) VIAL IVP PRN (07:52)
--- NOTE | 2020-12-29 08:58 | Progress Note ---
Subjective Subjective Date Seen by Provider: December 29, 2020 Time Seen by Provider: 09:20 PT'S FAMILY REPORTS THAT HE WAS MORE AGITATED LAST NIGHT, APPEARED TO BE MORE COMFORTABLE AND RESTED BETTER AFTER HE WAS GIVEN MORPHINE LAST NIGHT MORE REGULARLY. THE FAMILY HAS REQUESTED MORPHINE WHEN HE APPEARED UNCOMFORTABLE. PT'S WAS AT THE BEDSIDE TODAY WITH MULTIPLE OTHER FAMILY MEMBERS (INCLUDING SON GHULAM AND DTR ARASELI) DISCUSSED THE COURSE OF HIS DECLINE AND SYMPTOMS TO EXPECT. Review of Systems ROS Unable to Obtain: PT OBTUNDED General: No Chills; Malaise Pulmonary: No Dyspnea, No Cough Cardiovascular: No: Chest Pain Neurological: Weakness, Confusion (MOSTLY OBTUNDED) All Other Systems Reviewed All Other Systems Reviewed: No Objective Exam Vital Signs Vital Signs - First Documented 12/25/20 12/25/20 03:31 05:44 Temp 36.0 Pulse 75 Resp 18 B/P (MAP) 111/78 (89) Pulse Ox 100 O2 Delivery Room Air O2 Flow Rate 2.00 Capillary Refill : Less Than 3 Seconds General Appearance: Thin (PT LYING IN BED OBTUNDED) Neck: Other (C COLLAR IN PLACE) Respiratory: Decreased Breath Sounds Cardiovascular: Systolic Murmur, Tachycardia Gastrointestinal: Normal Bowel Sounds, Non Tender, Soft Rectal: Deferred Extremity: No Pedal Edema, Other (SOME MOTTLING OF FEET) Neurologic/Psychiatric: Other (SLIGHT INTERACTION, OPENS EYES, THEN HAS BRIEF VERBALIZATIONS AND IS BACK TO SLEEP) Lymphatic: No Adenopathy Assessment/Plan Assessment/Plan Admission Dx SUBDURAL HEMATOMA DISPLACED FRACTURE OF THE NASAL BONES DISPLACED FRACTURE OF C2 VERTEBRAL BODY CONCUSSION HYPERTENSION CORONARY ARTERY DISEASE DIABETES MELLITUS HYPERLIPIDEMIA ADVANCED AGE Assessment and Plan FALL AT HOME SUBDURAL HEMATOMA DISPLACED FRACTURE OF THE NASAL BONES DISPLACED FRACTURE OF C2 VERTEBRAL BODY CONCUSSION HYPERTENSION CORONARY ARTERY DISEASE DIABETES MELLITUS HYPERLIPIDEMIA ADVANCED AGE FALL AT HOME WITH SUSTAINED *SUBDURAL HEMATOMA *DISPLACED FRACTURE OF THE NASAL BONES *DISPLACED FRACTURE OF C2 VERTEBRAL BODY *CONCUSSION IMAGING FOLLOWS: CT HEAD: 1. Acute, right tentorial subdural hematoma, [address] MAXILLOFACIAL: 1. Extensive comminuted displaced fracture of the bilateral nasal bones. CT CERVICAL SPINE: 1. Comminuted displaced fracture through large portion of the anterior C2 vertebral body. Up to 3 mm of anterior offset present. 2. Rather markedly advanced degenerative changes through the cervical spine. HYPERTENSION CORONARY ARTERY DISEASE DIABETES MELLITUS HYPERLIPIDEMIA ADVANCED AGE PT ADMITTED FOR COMFORT CARE FOR ABOVE NAMED INJURIES - DISCUSSED WITH PT'S ALANNAH, DTR ARASELI AND SON GHULAM ON ADMISSION. GERI HAS POTENTIAL LIFE ENDING INJURIES, OVER THE NEXT FEW DAYS WE WILL CONTINUE TO MONITOR HIS SYMPTOMS AND SEE IF HE STABILIZES FROM HIS INJURIES OR IF HIS SUCCUMBS TO THE INJURIES AND PASSES AWAY. TODAY THERE IS A SHARP DECLINE IN HIS SYMPTOMS, CONTINUE WITH SUPPORTIVE CARE, MORPHINE FOR PAIN AND AIR HUNGER CONTROL PT IS STILL TAKING IN MINIMAL FLUID OUT OF HIS OWN LACK OF REQUEST FOR FLUIDS/FOODS DUE TO HIS CURRENT DECREASED COGNITIVE AWARENESS. THE PT IS AT VERY HIGH RISK OF DUE TO ADVANCED AGE AND HIS SUSTAINED INJURIES. Admission Dx SUBDURAL HEMATOMA DISPLACED FRACTURE OF THE NASAL BONES DISPLACED FRACTURE OF C2 VERTEBRAL BODY CONCUSSION HYPERTENSION CORONARY ARTERY DISEASE DIABETES MELLITUS HYPERLIPIDEMIA ADVANCED AGE Clinical Quality Measures Admission Status Admission Dx SUBDURAL HEMATOMA DISPLACED FRACTURE OF THE NASAL BONES DISPLACED FRACTURE OF C2 VERTEBRAL BODY CONCUSSION HYPERTENSION CORONARY ARTERY DISEASE DIABETES MELLITUS HYPERLIPIDEMIA ADVANCED AGE ESTELLE BACA MD December 29, 2020 08:57
[2020-12-29] MEDS: GLYCOPYRROLATE 0.2 MG/ML (ROBINUL) 2 ML VIAL IV PRN (10:00)
[2020-12-30] MEDS: morphine INJ 4 MG/ML 1 ML (VIAL/SYRINGE) IV PRN ×4 (00:31→05:49)
--- NOTE | 2020-12-30 08:43 | Progress Note ---
Subjective Subjective Date Seen by Provider: December 30, 2020 Time Seen by Provider: 08:40 Review of Systems ROS Unable to Obtain: PT OBTUNDED General: No Chills; Malaise Pulmonary: No Dyspnea, No Cough Cardiovascular: No: Chest Pain Neurological: Weakness, Confusion (MOSTLY OBTUNDED) All Other Systems Reviewed All Other Systems Reviewed: No Objective Exam Vital Signs Vital Signs - First Documented 12/25/20 12/25/20 03:31 05:44 Temp 36.0 Pulse 75 Resp 18 B/P (MAP) 111/78 (89) Pulse Ox 100 O2 Delivery Room Air O2 Flow Rate 2.00 Capillary Refill : Less Than 3 Seconds General Appearance: Thin (PT LYING IN BED OBTUNDED) Neck: Other (C COLLAR IN PLACE) Respiratory: Decreased Breath Sounds Cardiovascular: Systolic Murmur, Tachycardia Gastrointestinal: Normal Bowel Sounds, Non Tender, Soft Rectal: Deferred Extremity: No Pedal Edema, Other (SOME MOTTLING OF FEET) Neurologic/Psychiatric: Other (SLIGHT INTERACTION, OPENS EYES, THEN HAS BRIEF VERBALIZATIONS AND IS BACK TO SLEEP) Lymphatic: No Adenopathy Assessment/Plan Assessment/Plan Admission Dx SUBDURAL HEMATOMA DISPLACED FRACTURE OF THE NASAL BONES DISPLACED FRACTURE OF C2 VERTEBRAL BODY CONCUSSION HYPERTENSION CORONARY ARTERY DISEASE DIABETES MELLITUS HYPERLIPIDEMIA ADVANCED AGE Assessment and Plan FALL AT HOME SUBDURAL HEMATOMA DISPLACED FRACTURE OF THE NASAL BONES DISPLACED FRACTURE OF C2 VERTEBRAL BODY CONCUSSION HYPERTENSION CORONARY ARTERY DISEASE DIABETES MELLITUS HYPERLIPIDEMIA ADVANCED AGE FALL AT HOME WITH SUSTAINED *SUBDURAL HEMATOMA *DISPLACED FRACTURE OF THE NASAL BONES *DISPLACED FRACTURE OF C2 VERTEBRAL BODY *CONCUSSION IMAGING FOLLOWS: CT HEAD: 1. Acute, right tentorial subdural hematoma, [address] MAXILLOFACIAL: 1. Extensive comminuted displaced fracture of the bilateral nasal bones. CT CERVICAL SPINE: 1. Comminuted displaced fracture through large portion of the anterior C2 vertebral body. Up to 3 mm of anterior offset present. 2. Rather markedly advanced degenerative changes through the cervical spine. HYPERTENSION CORONARY ARTERY DISEASE DIABETES MELLITUS HYPERLIPIDEMIA ADVANCED AGE PT ADMITTED FOR COMFORT CARE FOR ABOVE NAMED INJURIES - DISCUSSED WITH PT'S ALANNAH, DTR ARASELI AND SON GHULAM ON ADMISSION. GERI HAS POTENTIAL LIFE ENDING INJURIES, OVER THE NEXT FEW DAYS WE WILL CONTINUE TO MONITOR HIS SYMPTOMS AND SEE IF HE STABILIZES FROM HIS INJURIES OR IF HIS SUCCUMBS TO THE INJURIES AND PASSES AWAY. TODAY THERE IS A SHARP DECLINE IN HIS SYMPTOMS, CONTINUE WITH SUPPORTIVE CARE, MORPHINE FOR PAIN AND AIR HUNGER CONTROL PT IS STILL TAKING IN MINIMAL FLUID OUT OF HIS OWN LACK OF REQUEST FOR FLUIDS/FOODS DUE TO HIS CURRENT DECREASED COGNITIVE AWARENESS. THE PT IS AT VERY HIGH RISK OF DUE TO ADVANCED AGE AND HIS SUSTAINED INJURIES. Admission Dx SUBDURAL HEMATOMA DISPLACED FRACTURE OF THE NASAL BONES DISPLACED FRACTURE OF C2 VERTEBRAL BODY CONCUSSION HYPERTENSION CORONARY ARTERY DISEASE DIABETES MELLITUS HYPERLIPIDEMIA ADVANCED AGE Clinical Quality Measures Admission Status Admission Dx SUBDURAL HEMATOMA DISPLACED FRACTURE OF THE NASAL BONES DISPLACED FRACTURE OF C2 VERTEBRAL BODY CONCUSSION HYPERTENSION CORONARY ARTERY DISEASE DIABETES MELLITUS HYPERLIPIDEMIA ADVANCED AGE ESTELLE BACA MD December 30, 2020 08:43
[2020-12-30] MEDS ORDERED: KETOROLAC 15 MG/ML VIAL IVP ONE (09:30)
[2020-12-30] MEDS ORDERED: morphine INJ 4 MG/ML 1 ML (VIAL/SYRINGE) IV PRN (09:30)
[2020-12-30] MEDS ORDERED: KETOROLAC 15 MG/ML VIAL IVP PRN (09:30)
[2020-12-30] MEDS: morphine INJ 4 MG/ML 1 ML (VIAL/SYRINGE) IVP SCH ×2 (09:44→12:13)
== END 2020-12-30 16:00 | disposition expired | DRG 951 ==
LOC: EDUNIT# 03:29 → ER 03:30 → 4TH 05:30
PROVIDERS: ADMIT Family Medicine; ATTEND Family Medicine
DX: Z51.5 Encounter for palliative care (principal); S06.5X9A Traumatic subdural hemorrhage with loss of consciousness of unspecified duration, initial encounter; S12.100A Unspecified displaced fracture of second cervical vertebra, initial encounter for closed fracture; S02.2XXA Fracture of nasal bones, initial encounter for closed fracture; E11.9 Type 2 diabetes mellitus without complications; I10 Essential (primary) hypertension; E78.00 Pure hypercholesterolemia, unspecified; F03.90 Unspecified dementia, unspecified severity, without behavioral disturbance, psychotic disturbance, mood disturbance, and anxiety; Z66 Do not resuscitate; N40.0 Benign prostatic hyperplasia without lower urinary tract symptoms; K21.9 Gastro-esophageal reflux disease without esophagitis; M10.9 Gout, unspecified; I25.10 Atherosclerotic heart disease of native coronary artery without angina pectoris; Z79.02 Long term (current) use of antithrombotics/antiplatelets; Z23 Encounter for immunization; Z82.49 Family history of ischemic heart disease and other diseases of the circulatory system; Z79.84 Long term (current) use of oral hypoglycemic drugs; W18.12XA Fall from or off toilet with subsequent striking against object, initial encounter; W19.XXXA Unspecified fall, initial encounter; Y92.002 Bathroom of unspecified non-institutional (private) residence as the place of occurrence of the external cause
CPT/HCPCS: 36415; 70450; 70486; 71045; 72125; 72170; 80053; 83735; 85007; 85027; 85610; 85730; 86900; 86901; 90471; 90715; 93041; 94760; 96361; 96374; 96375